=== PATIENT | female | born 1950 | race African-American/Black ===

== ENCOUNTER 2018-02-27 07:42 | Emergency (ER) | payer OTHER ==
[2018-02-27] MEDS ORDERED: FENTANYL CITR 100 MCG/2 ML ONE (09:28)
[2018-02-27] MEDS ORDERED: NA CHLORIDE 0.9% 1,000 ML ONE (09:29)
[2018-02-27] MEDS ORDERED: ONDANSETRON 4 MG/2 ML VIAL ONE (09:29)
--- NOTE | 2018-02-27 10:04 | RAD REPORT ---
EXAM DESCRIPTION: VASExtrem Venous W Compress Bil02/27/2018 9:45 am CLINICAL HISTORY: Bilateral leg pain COMPARISON: 2017 FINDINGS: The common femoral, superficial femoral, popliteal and posterior tibial veins bilaterally are compressible and demonstrate augmentation. Doppler demonstrates good flow. IMPRESSION: No evidence of deep venous thrombosis involving either lower extremity.
--- NOTE | 2018-02-27 10:37 | RAD REPORT ---
EXAM DESCRIPTION: RAD - Lumbar Spine 3 Views - 02/27/2018 10:14 am CLINICAL HISTORY: Back pain FINDINGS: The alignment of the lumbar spine is satisfactory. No fracture or dislocation is seen. Mild spondylosis involves the lumbar spine. The bones are osteoporotic.
--- NOTE | 2018-02-27 10:39 | ER ---
Nurse's Notes [facility] Name: Nhi Santos Age: 67 yrs Sex: Female : 1950 Arrival Date: 02/27/2018 Time: 07:44 Bed 14 Private MD: Augustin Bishop E Diagnosis: Low back pain;Sciatica, left side;Obesity, unspecified;Edema, unspecified;Pain in left leg;Spondylolysis, lumbar region Presentation: 02/27 08:10 Presenting complaint: Patient states: has hx of lupus, has had low back pain X 3 days, iw also has leg swelling. Transition of care: patient was not received from another setting of care. Onset of symptoms was February 24, 2018. 08:10 Method Of Arrival: Ambulatory iw 08:10 Acuity: TESSY 3 iw 08:45 Initial Sepsis Screen: Does the patient meet any 2 criteria? No. Patient's initial ph sepsis screen is negative. Does the patient have a suspected source of infection? No. Patient's initial sepsis screen is negative. Care prior to arrival: None. Historical: - Allergies: 08:44 Sulfa (Sulfonamide Antibiotics); ph - Home Meds: 08:44 alprazolam 2 mg Oral Tb24 1 tab once daily [Active]; amlodipine 10 mg tab 1 tab once ph daily [Active]; carvedilol 6.25 mg Oral tab 1 tab daily [Active]; clonidine HCl 0.3 mg Oral tab 1 tab 2 times per day [Active]; losartan-hydrochlorothiazide 100-12.5 mg Oral tab 1 tab once daily [Active]; [place] 10-325 mg Oral tab 1 tab every 4 hours [Active]; omeprazole 40 mg Oral cpDR 1 cap once daily [Active]; - PMHx: 08:44 Arthritis; Hypertension; Lupus; PUD; ph - PSHx: 08:44 Hysterectomy; Cholecystectomy; ph - Immunization history:: Adult Immunizations not up to date. - Social history:: Smoking status: Patient/guardian denies using tobacco. - Family history:: not pertinent. Screenin:44 Abuse screen: Denies threats or abuse. Denies injuries from another. Nutritional ph screening: No deficits noted. Tuberculosis screening: No symptoms or risk factors identified. Fall Risk None identified. Assessment: 09:55 General: Appears in no apparent distress. uncomfortable, obese, well groomed, Behavior ph is calm, cooperative, appropriate for age, Denies fever. Pain: Complains of pain in low back area Pain radiates to left hip and left leg. Neuro: Level of Consciousness is awake, alert, obeys commands, Oriented to person, place, time, situation. Cardiovascular: Denies chest pain, lightheadedness, shortness of breath, Capillary refill < 3 seconds in bilateral fingers Patient's skin is warm and dry. Edema is 2+ to right ankle, right foot and right toes is 3+ to left ankle, left foot and left toes. Respiratory: Airway is patent Respiratory effort is even, unlabored, Respiratory pattern is regular, symmetrical. GI: No signs and/or symptoms were reported involving the gastrointestinal system. : Reports urinary frequency, Denies burning with urination. Derm: Skin is intact, is healthy with good turgor, Skin is pink, warm \T\ dry. Musculoskeletal: Circulation, motion, and sensation intact. Range of motion: intact in all extremities. 11:00 Reassessment: Patient appears in no apparent distress at this time. Patient and/or ph family updated on plan of care and expected duration. Pain level reassessed. Patient is alert, oriented x 3, equal unlabored respirations, skin warm/dry/pink. Pt esting quietly, d/c pending lab results. 11:39 Reassessment: Patient appears in no apparent distress at this time. Patient and/or iw family updated on plan of care and expected duration. Pain level reassessed. Patient is alert, oriented x 3, equal unlabored respirations, skin warm/dry/pink. Patient states feeling better. Patient states symptoms have improved. Vital Signs: 08:42 BP 172 / 93; Pulse 71; Resp 18; Temp 97.8; Pulse Ox 98% on R/A; ph 10:00 BP 167 / 89; Pulse 67; Resp 18; Pulse Ox 99% on R/A; ph 10:00 BP 172 / 91; Pulse 63; Resp 16; Pulse Ox 96% on R/A; Pain 4/10; ph 11:39 BP 168 / 74; Pulse 61; Resp 16; Pulse Ox 98% on R/A; Pain 2/10; iw ED Course: 07:44 Patient arrived in ED. mr 07:44 Augustin Bishop MD is Private Physician. mr 08:11 Triage completed. iw 08:30 Ze Saini MD is Attending Physician. david 08:41 Luz Maria Hyatt, RN is Primary Nurse. ph 08:42 Arm band placed on. ph 08:45 Patient has correct armband on for positive identification. Bed in low position. Call ph light in reach. Side rails up X 1. Pulse ox on. NIBP on. 09:44 US Extremity Venou Bilateral In Process Unspecified. EDMS 10:03 Patient moved to radiology via wheelchair. mh1 10:05 X-ray completed. Patient tolerated procedure well. mh1 10:06 Lumbar Spine (3 Views) XRAY In Process Unspecified. EDMS 10:13 Patient moved back from radiology. kw1 10:39 Augustin Bishop MD is Referral Physician. david 11:39 No provider procedures requiring assistance completed. IV discontinued, intact, iw bleeding controlled, No redness/swelling at site. Pressure dressing applied. Administered Medications: 10:37 Drug: NS 0.9% 1000 ml Route: IV; Rate: 125 ml/hr; Site: left antecubital; ph 11:40 Follow up: IV Status: Order to discontinue infusion iw 10:37 Drug: fentaNYL (PF) 25 mcg Route: IVP; Site: left antecubital; ph 11:40 Follow up: Response: No adverse reaction; Pain is decreased iw 10:37 Drug: Zofran 4 mg Route: IVP; Site: left antecubital; ph 11:40 Follow up: Response: No adverse reaction iw Outcome: 10:39 Discharge ordered by . david 11:39 Discharged to home ambulatory, with family. iw 11:39 Condition: good 11:39 Discharge instructions given to patient, family, Instructed on discharge instructions, follow up and referral plans. medication usage, Demonstrated understanding of instructions, follow-up care, medications, Prescriptions given X 3. 11:40 Patient left the ED. iw Addendum: 03/03/2018 07:46 Addendum: Culture Results: Positive urine culture. Patient was not prescribed i w antibiotics at discharge. Report given to JAYNA for further evaluation and then to senior sql dba for follow up with patient. Phone call Attempt #1 pt id not answer, left voice mail. Signatures: Dispatcher [employer] EDNM Ze Saini MD MD cha Rivera, Maria Thomas Seeha 1 Comfort Proctor, RN RN Luz Maria Hyatt RN RN Colette Sifuentes [facility]
--- NOTE | 2018-02-27 10:39 | EDPHYS ---
Physician Documentation [facility] Name: Nhi Santos Age: 67 yrs Sex: Female : 1950 Arrival Date: 02/27/2018 Time: 07:44 Bed 14 Private MD: Augustin Bishop E ED Physician Ze Saini HPI: 02/27 09:18 This 67 yrs old Black Female presents to ER via Ambulatory with complaints of Back Pain.david 09:18 The patient presents with pain that is acute. The symptoms are located in the low back. david Onset: The symptoms/episode began/occurred 3 day(s) ago. The pain does not radiate. Associated signs and symptoms: The patient has no apparent associated signs or symptoms. Modifying factors: The patient symptoms are alleviated by remaining still, the patient symptoms are aggravated by movement. Severity of symptoms: At their worst the symptoms were moderate, in the emergency department the symptoms are unchanged. The patient has not experienced similar symptoms in the past. Historical: - Allergies: 08:44 Sulfa (Sulfonamide Antibiotics); ph - Home Meds: 08:44 alprazolam 2 mg Oral Tb24 1 tab once daily [Active]; amlodipine 10 mg tab 1 tab once ph daily [Active]; carvedilol 6.25 mg Oral tab 1 tab daily [Active]; clonidine HCl 0.3 mg Oral tab 1 tab 2 times per day [Active]; losartan-hydrochlorothiazide 100-12.5 mg Oral tab 1 tab once daily [Active]; [place] 10-325 mg Oral tab 1 tab every 4 hours [Active]; omeprazole 40 mg Oral cpDR 1 cap once daily [Active]; - PMHx: 08:44 Arthritis; Hypertension; Lupus; PUD; ph - PSHx: 08:44 Hysterectomy; Cholecystectomy; ph - Immunization history:: Adult Immunizations not up to date. - Social history:: Smoking status: Patient/guardian denies using tobacco. - Family history:: not pertinent. ROS: 09:18 Constitutional: Negative for fever, chills, and weight loss, Eyes: Negative for injury, david pain, redness, and discharge, ENT: Negative for injury, pain, and discharge, Neck: Negative for injury, pain, and swelling, Cardiovascular: Negative for chest pain, palpitations, and edema, Respiratory: Negative for shortness of breath, cough, wheezing, and pleuritic chest pain, Abdomen/GI: Negative for abdominal pain, nausea, vomiting, diarrhea, and constipation, : Negative for injury, bleeding, discharge, and swelling, MS/Extremity: Negative for injury and deformity, Skin: Negative for injury, rash, and discoloration, Neuro: Negative for headache, weakness, numbness, tingling, and seizure, Psych: Negative for depression, anxiety, suicide ideation, homicidal ideation, and hallucinations, Allergy/Immunology: Negative for hives, rash, and allergies, Endocrine: Negative for neck swelling, polydipsia, polyuria, polyphagia, and marked weight changes, Hematologic/Lymphatic: Negative for swollen nodes, abnormal bleeding, and unusual bruising. 09:18 Back: Positive for decreased range of motion, pain at rest, pain with movement. Exam: 09:18 Constitutional: This is a well developed, well nourished patient who is awake, alert, david and in no acute distress. Head/Face: Normocephalic, atraumatic. Eyes: Pupils equal round and reactive to light, extra-ocular motions intact. Lids and lashes normal. Conjunctiva and sclera are non-icteric and not injected. Cornea within normal limits. Periorbital areas with no swelling, redness, or edema. ENT: Nares patent. No nasal discharge, no septal abnormalities noted. Tympanic membranes are normal and external auditory canals are clear. Oropharynx with no redness, swelling, or masses, exudates, or evidence of obstruction, uvula midline. Mucous membranes moist. Neck: Trachea midline, no thyromegaly or masses palpated, and no cervical lymphadenopathy. Supple, full range of motion without nuchal rigidity, or vertebral point tenderness. No Meningismus. Chest/axilla: Normal chest wall appearance and motion. Nontender with no deformity. No lesions are appreciated. Cardiovascular: Regular rate and rhythm with a normal S1 and S2. No gallops, murmurs, or rubs. Normal PMI, no JVD. No pulse deficits. Respiratory: Lungs have equal breath sounds bilaterally, clear to auscultation and percussion. No rales, rhonchi or wheezes noted. No increased work of breathing, no retractions or nasal flaring. Abdomen/GI: Soft, non-tender, with normal bowel sounds. No distension or tympany. No guarding or rebound. No evidence of tenderness throughout. Female : Normal external genitalia. Skin: Warm, dry with normal turgor. Normal color with no rashes, no lesions, and no evidence of cellulitis. Neuro: Awake and alert, GCS 15, oriented to person, place, time, and situation. Cranial nerves II-XII grossly intact. Motor strength 5/5 in all extremities. Sensory grossly intact. Cerebellar exam normal. Normal gait. Psych: Awake, alert, with orientation to person, place and time. Behavior, mood, and affect are within normal limits. 09:18 Back: pain, that is mild, that is moderate, ROM is painful, normal spinal alignment noted, CVA tenderness, is absent, muscle spasm, is appreciated in the left low back, left mid back, right mid back and right low back. Vital Signs: 08:42 BP 172 / 93; Pulse 71; Resp 18; Temp 97.8; Pulse Ox 98% on R/A; ph 10:00 BP 167 / 89; Pulse 67; Resp 18; Pulse Ox 99% on R/A; ph 10:00 BP 172 / 91; Pulse 63; Resp 16; Pulse Ox 96% on R/A; Pain 4/10; ph 11:39 BP 168 / 74; Pulse 61; Resp 16; Pulse Ox 98% on R/A; Pain 2/10; iw MDM: 08:30 Patient medically screened. [facility] 09:18 Data reviewed: vital signs, nurses notes, lab test result(s), radiologic studies, plain david films. 02/27 09:18 Order name: CBC with Diff; Complete Time: 11:14 [facility] 02/27 09:18 Order name: Comprehensive Metabolic Panel [facility] 02/27 09:18 Order name: Lumbar Spine (3 Views) XRAY; Complete Time: 10:38 [facility] 02/27 09:18 Order name: US Extremity Venou Bilateral; Complete Time: 10:38 [facility] 02/27 09:18 Order name: Urine Culture [facility] 02/27 10:02 Order name: Urine Dipstick--Ancillary (enter results) 02/27 09:18 Order name: Urine Dipstick-Ancillary (obtain specimen); Complete Time: 09:26 [facility] Administered Medications: 10:37 Drug: NS 0.9% 1000 ml Route: IV; Rate: 125 ml/hr; Site: left antecubital; ph 11:40 Follow up: IV Status: Order to discontinue infusion iw 10:37 Drug: fentaNYL (PF) 25 mcg Route: IVP; Site: left antecubital; ph 11:40 Follow up: Response: No adverse reaction; Pain is decreased iw 10:37 Drug: Zofran 4 mg Route: IVP; Site: left antecubital; ph 11:40 Follow up: Response: No adverse reaction iw Disposition: 02/27/18 10:39 Discharged to Home. Impression: Low back pain, Sciatica, left side, Obesity, unspecified, Edema, unspecified, Pain in left leg, Spondylolysis, lumbar region. - Condition is Stable. - Discharge Instructions: Back Pain, Adult, Chronic Back Pain, Edema, Musculoskeletal Pain, Obesity, Sciatica, Back Injury Prevention, [id number], Back Pain, Adult, [id number], Edema, Icts-hu-Tulm, Back Exercises, Roxu-ck-Aptu. - Prescriptions for Skelaxin 800 mg Oral Tablet - take 1 tablet by ORAL route every 6 hours As needed; 40 tablet. Tylenol- Codeine #3 300-30 mg Oral Tablet - take 2 tablet by ORAL route every 6 hours As needed; 30 tablet. Medrol (Bryon) 4 mg Oral Tablets, Dose Pack - take 1 tablet by ORAL route as directed - follow package instructions; 1 packet. - Medication Reconciliation Form, Thank You Letter, Antibiotic Education, Prescription Opioid Use form. - Follow up: Augustin Bishop; When: 2 - 3 days; Reason: Recheck today's complaints, Continuance of care, Re-evaluation by your physician. - Problem is new. - Symptoms have improved. Signatures: Dispatcher [employer] Ze Henley MD MD cha Williams, Irene, RN RN iw Luz Maria Hyatt RN RN ph
[2018-02-27 11:00] LABS: Absolute Lymphocytes (CBC) 1.4 K/uL (0.7-4.9); Absolute Monocytes 0.5 K/uL (0.1-1.3); Absolute Neutrophil 5.3 K/uL (1.8-8.0); Basophils % 0.4 % (0-1.3); Eosinophils % 2.2 % (0-4.4); Hematocrit 36.4 % (36.0-45.0); Lymphocytes % 19.3 % (15.3-44.8); MCV 88.9 fL (80-100); MPV 9.6 fL (7.6-11.3); Monocytes % 6.4 % (3.3-12.3)
[2018-02-27 11:11] LABS: Potassium 3.7 mEq/L (3.6-5.0)
[2018-02-27 11:14] LABS: Albumin 3.4 g/dL (3.2-5.5); Bilirubin Total 0.6 mg/dL (0.3-1.2); Protein, Total 7.9 g/dL (6.0-8.3)
[2018-02-27 11:32] LABS: Urine Blood NEGATIVE (NEG); Urine Glucose NEGATIVE (NEG); Urine Protein NEGATIVE (NEG)
[2018-02-27 12:13] VITALS: TEMP 97.8
[2018-02-27 12:16] VITALS: BP 168/74; O2SAT 98
== END 2018-02-27 11:40 | disposition home or self-care (01) ==
LOC: ER 07:42
DX: M54.32 Sciatica, left side (principal); M47.896 Other spondylosis, lumbar region; R60.9 Edema, unspecified; M79.605 Pain in left leg; E66.9 Obesity, unspecified; I10 Essential (primary) hypertension; Z88.2 Allergy status to sulfonamides
CPT/HCPCS: 36415; 72100; 80053; 81003; 85025; 87077; 87086; 87088; 87186; 93970; 96361; 96374; 96375; 99284; J2405; J3010; J7030

== ENCOUNTER 2019-03-05 08:08 | Emergency (ER) | payer OTHER ==
--- NOTE | 2019-03-05 09:27 | RAD REPORT ---
EXAM DESCRIPTION: RAD - Chest Pa And Lat (2 Views) - 03/05/2019 9:16 am CLINICAL HISTORY: Cough;Congestion Chest pain. COMPARISON: Chest Single View dated 01/03/2018; CHEST SINGLE VIEW dated 09/19/2012; CHEST SINGLE VIEW dated 09/18/2012; CHEST SINGLE VIEW dated 02/06/2012 FINDINGS: The lungs are clear. The heart is normal in size. No displaced fractures. IMPRESSION: No acute or concerning finding suspected.
--- NOTE | 2019-03-05 10:42 | EDPHYS ---
Physician Documentation [facility] Name: Nhi Santos Age: 68 yrs Sex: Female : 1950 Arrival Date: 03/05/2019 Time: 08:09 Bed 23 Private MD: Augustin Bishop E ED Physician Maurice Zhao HPI: 03/05 10:35 This 68 yrs old Black Female presents to ER via Ambulatory with complaints of Chest kb Congestion, Cough, Ear Pain, Sore Throat. 10:35 The patient or guardian reports cough, that is intermittent, described as moderate, kb with no sputum. Associated signs and symptoms: Pertinent positives: rhinorrhea, Pertinent negatives: chest pain, diarrhea, ear ache, fever, nausea, sore throat, vomiting. The patient has not experienced similar symptoms in the past. The patient has not recently seen a physician. 10:37 Onset: The symptoms/episode began/occurred 4 day(s) ago. Severity of symptoms: At their kb worst the symptoms were mild, moderate, in the emergency department the symptoms are unchanged. Severity of symptoms: At their worst the symptoms were. Modifying factors: The symptoms are alleviated by nothing, the symptoms are aggravated by nothing. Pt reports cough and congestion for 3-4 days. Denies fever.. Historical: - Allergies: 08:18 Sulfa (Sulfonamide Antibiotics); ss - PMHx: 08:18 PUD; Lupus; Hypertension; Arthritis; neuropathy; ss - PSHx: 08:18 Hysterectomy; Cholecystectomy; ss - Immunization history:: Adult Immunizations up to date. - Social history:: Smoking status: Patient/guardian denies using tobacco. - Ebola Screening: : Patient denies exposure to infectious person Patient denies travel to an Ebola-affected area in the 21 days before illness onset. ROS: 10:33 Constitutional: Negative for fever, chills, and weight loss, Cardiovascular: Negative kb for chest pain, palpitations, and edema, Abdomen/GI: Negative for abdominal pain, nausea, vomiting, diarrhea, and constipation, Back: Negative for injury and pain, : Negative for injury, bleeding, discharge, and swelling, MS/Extremity: Negative for injury and deformity, Skin: Negative for injury, rash, and discoloration, Neuro: Negative for headache, weakness, numbness, tingling, and seizure. 10:33 ENT: Positive for sinus congestion. 10:33 Respiratory: Positive for cough, Negative for dyspnea on exertion, hemoptysis, orthopnea, pleurisy, shortness of breath, sputum production, wheezing. Exam: 10:33 Constitutional: This is a well developed, well nourished patient who is awake, alert, kb and in no acute distress. ENT: Nares patent. No nasal discharge, no septal abnormalities noted. Tympanic membranes are normal and external auditory canals are clear. Oropharynx with no redness, swelling, or masses, exudates, or evidence of obstruction, uvula midline. Mucous membranes moist. Neck: Trachea midline, no thyromegaly or masses palpated, and no cervical lymphadenopathy. Supple, full range of motion without nuchal rigidity, or vertebral point tenderness. No Meningismus. Chest/axilla: Normal chest wall appearance and motion. Nontender with no deformity. No lesions are appreciated. Cardiovascular: Regular rate and rhythm with a normal S1 and S2. No gallops, murmurs, or rubs. Normal PMI, no JVD. No pulse deficits. Respiratory: Lungs have equal breath sounds bilaterally, clear to auscultation and percussion. No rales, rhonchi or wheezes noted. No increased work of breathing, no retractions or nasal flaring. Abdomen/GI: Soft, non-tender, with normal bowel sounds. No distension or tympany. No guarding or rebound. No evidence of tenderness throughout. Skin: Warm, dry with normal turgor. Normal color with no rashes, no lesions, and no evidence of cellulitis. MS/ Extremity: Pulses equal, no cyanosis. Neurovascular intact. Full, normal range of motion. Neuro: Awake and alert, GCS 15, oriented to person, place, time, and situation. Cranial nerves II-XII grossly intact. Motor strength 5/5 in all extremities. Sensory grossly intact. Cerebellar exam normal. Normal gait. 10:33 Head/face: Sinus tenderness, that is mild, is located over the right maxillary sinus and left maxillary sinus. Vital Signs: 08:18 BP 166 / 103; Pulse 79; Resp 16; Temp 98.0(TE); Pulse Ox 98% on R/A; Weight 116.12 kg; ss Height 5 ft. 4 in. (162.56 cm); Pain 6/10; 08:18 BP 143 / 103; Pulse 79; ss 08:18 Body Mass Index 43.94 (116.12 kg, 162.56 cm) ss MDM: 09:09 Patient medically screened. kb 10:32 Data reviewed: vital signs, nurses notes. Data interpreted: Pulse oximetry: on room air kb is 98 %. Interpretation: normal. Counseling: I had a detailed discussion with the patient and/or guardian regarding: the historical points, exam findings, and any diagnostic results supporting the discharge/admit diagnosis, lab results, radiology results, the need for outpatient follow up, a family practitioner, to return to the emergency department if symptoms worsen or persist or if there are any questions or concerns that arise at home. 03/05 08:33 Order name: Flu; Complete Time: 09:59 kb 03/05 08:33 Order name: Strep; Complete Time: 09:41 kb 03/05 08:33 Order name: Chest Pa And Lat (2 Views) XRAY; Complete Time: 09:28 kb 03/05 09:35 Order name: Throat Culture EDWI Administered Medications: No medications were administered Disposition: 03/05/19 10:41 Discharged to Home. Impression: Acute sinusitis. - Condition is Stable. - Discharge Instructions: Sinusitis, Adult, Knzk-bz-Fmhy. - Prescriptions for Tessalon Perles 100 mg Oral Capsule - take 1 capsule by ORAL route every 8 hours As needed; 15 capsule. - Medication Reconciliation Form, Thank You Letter, Antibiotic Education, Prescription Opioid Use form. - Follow up: Emergency Department; When: As needed; Reason: Worsening of condition. Follow up: Private Physician; When: 2 - 3 days; Reason: Recheck today's complaints, Continuance of care, Re-evaluation by your physician. Signatures: Dispatcher [employer] [facility] Deyanira Rowan, SALES ESTIMATOR-C SALES ESTIMATOR-Kathie Pearson RN RN ss Corrections: (The following items were deleted from the chart) 08:39 08:20 Chest Single View+RAD.[email or web address].BRZ ordered. [facility] 11:11 10:41 03/05/2019 10:41 Discharged to Home. Impression: Acute sinusitis. Condition is ss Stable. Forms are Medication Reconciliation Form, Thank You Letter, Antibiotic Education, Prescription Opioid Use. Follow up: Emergency Department; When: As needed; Reason: Worsening of condition. Follow up: Private Physician; When: 2 - 3 days; Reason: Recheck today's complaints, Continuance of care, Re-evaluation by your physician. kb
--- NOTE | 2019-03-05 10:42 | ER ---
Nurse's Notes [facility] Name: Nhi Santos Age: 68 yrs Sex: Female : 1950 Arrival Date: 03/05/2019 Time: 08:09 Bed 23 Private MD: Augustin Bishop E Diagnosis: Acute sinusitis Presentation: 03/05 08:16 Presenting complaint: Patient states: sneezing, runny nose, painful cough and chest ss congestion x 3-4 days. Denies fever. Transition of care: patient was not received from another setting of care. Onset of symptoms was March 02, 2019. Risk Assessment: Do you want to hurt yourself or someone else? Patient reports no desire to harm self or others. Initial Sepsis Screen: Does the patient meet any 2 criteria? No. Patient's initial sepsis screen is negative. Does the patient have a suspected source of infection? No. Patient's initial sepsis screen is negative. Care prior to arrival: None. 08:16 Method Of Arrival: Ambulatory ss 08:16 Acuity: TESSY 3 ss Historical: - Allergies: 08:18 Sulfa (Sulfonamide Antibiotics); ss - PMHx: 08:18 PUD; Lupus; Hypertension; Arthritis; neuropathy; ss - PSHx: 08:18 Hysterectomy; Cholecystectomy; ss - Immunization history:: Adult Immunizations up to date. - Social history:: Smoking status: Patient/guardian denies using tobacco. - Ebola Screening: : Patient denies exposure to infectious person Patient denies travel to an Ebola-affected area in the 21 days before illness onset. Screenin:15 Abuse screen: Denies threats or abuse. Denies injuries from another. Nutritional ss screening: No deficits noted. Tuberculosis screening: Never had TB. Fall Risk None identified. Assessment: 09:15 General: Appears uncomfortable, Behavior is calm, cooperative, Denies fever, feeling ss ill, fatigue, chills. Pain: Complains of pain in sore throat Pain currently is 6 out of 10 on a pain scale. Quality of pain is described as aching, Is. Neuro: Level of Consciousness is awake, alert, obeys commands, Oriented to person, place, time, situation. Cardiovascular: Capillary refill < 3 seconds is brisk in bilateral fingers Patient's skin is warm and dry. Respiratory: Airway is patent Respiratory effort is even, unlabored, Respiratory pattern is regular, symmetrical. Respiratory: Reports cough that is productive, hacking, persistent since x 3-4 days chest congestion Breath sounds are clear bilaterally. GI: Patient currently denies diarrhea, nausea, vomiting. :. EENT: Nares are clear Oral mucosa is moist. Throat is clear. Derm: Skin is intact, is healthy with good turgor, Skin is dry, Skin is pink, warm \T\ dry. normal. Musculoskeletal: Circulation, motion, and sensation intact. Range of motion: intact in all extremities, Swelling absent. Vital Signs: 08:18 BP 166 / 103; Pulse 79; Resp 16; Temp 98.0(TE); Pulse Ox 98% on R/A; Weight 116.12 kg; ss Height 5 ft. 4 in. (162.56 cm); Pain 6/10; 08:18 BP 143 / 103; Pulse 79; ss 08:18 Body Mass Index 43.94 (116.12 kg, 162.56 cm) ss ED Course: 08:09 Patient arrived in ED. as 08:10 Augustin Bishop MD is Private Physician. as 08:17 Triage completed. ss 08:33 Deyanira Rowan F[facility]-C [facility]. kb 08:33 Maurice Zhao MD is Attending Physician. kb 09:14 Chest Pa And Lat (2 Views) XRAY In Process Unspecified. EDMS 09:15 Patient has correct armband on for positive identification. Bed in low position. Call ss light in reach. Side rails up X 1. 09:41 Kathie Charlton RN is Primary Nurse. ss 11:11 No provider procedures requiring assistance completed. Patient did not have IV access ss during this emergency room visit. Administered Medications: No medications were administered Outcome: 10:41 Discharge ordered by . kb 11:11 Discharged to home ambulatory. ss 11:11 Condition: good 11:11 Discharge instructions given to patient, Instructed on discharge instructions, follow up and referral plans. medication usage, Demonstrated understanding of instructions, follow-up care, medications, Prescriptions given X 1. 11:11 Patient left the ED. ss Signatures: Dispatcher [employer] EDMS Deyanira Rowan FNP-C FNP-Rafia Donahue as Kathie Charlton RN RN ss
[2019-03-05 11:22] VITALS: BP 143/103; TEMP 98; O2SAT 98
== END 2019-03-05 11:11 | disposition home or self-care (01) ==
LOC: ER 08:08
DX: J01.90 Acute sinusitis, unspecified (principal); I10 Essential (primary) hypertension; K27.9 Peptic ulcer, site unspecified, unspecified as acute or chronic, without hemorrhage or perforation; Z88.2 Allergy status to sulfonamides
CPT/HCPCS: 71046; 87070; 87081; 87804

== ENCOUNTER 2019-08-13 06:59 | Emergency (ER) | payer OTHER ==
--- NOTE | 2019-08-13 08:45 | ER ---
Nurse's Notes [facility] Name: Nhi Santos Age: 68 yrs Sex: Female : 1950 Arrival Date: 08/13/2019 Time: 07:02 Bed 20 Private MD: Diagnosis: Low back pain Presentation: 08/13 07:15 Presenting complaint: Patient states: yesterday morning i couldn't put weight on my tw2 LEFT side, i felt a tearing/pulling pain in my LEFT groin area, felt a pop. Transition of care: patient was not received from another setting of care. Onset of symptoms was August 13, 2019. Risk Assessment: Do you want to hurt yourself or someone else? Patient reports no desire to harm self or others. Initial Sepsis Screen: Does the patient meet any 2 criteria? No. Patient's initial sepsis screen is negative. Does the patient have a suspected source of infection? No. Patient's initial sepsis screen is negative. Care prior to arrival: None. 07:15 Method Of Arrival: Wheelchair tw2 07:15 Acuity: TESSY 4 tw2 Triage Assessment: 07:19 General: Appears in no apparent distress. obese, well groomed, Behavior is calm, tw2 cooperative, appropriate for age. Pain: Complains of pain in pelvis and left hip. Historical: - Allergies: 07:19 Sulfa (Sulfonamide Antibiotics); tw2 - Home Meds: 07:19 losartan-hydrochlorothiazide 100-12.5 mg Oral tab 1 tab once daily [Active]; omeprazole tw2 40 mg Oral cpDR 1 cap once daily [Active]; [place] 10-325 mg Oral tab 1 tab every 4 hours [Active]; clonidine HCl 0.3 mg Oral tab 1 tab 2 times per day [Active]; carvedilol 6.25 mg Oral tab 1 tab daily [Active]; amlodipine 10 mg tab 1 tab once daily [Active]; alprazolam 2 mg Oral Tb24 1 tab once daily [Active]; - PMHx: 07:19 Arthritis; Hypertension; Lupus; neuropathy; PUD; tw2 - PSHx: 07:19 Cholecystectomy; Hysterectomy; tw2 - Immunization history:: Adult Immunizations. - Social history:: Smoking status: . - Ebola Screening: : Patient denies travel to an Ebola-affected area in the 21 days before illness onset. Screenin:21 Abuse screen: Denies threats or abuse. Nutritional screening: No deficits noted. tw2 Tuberculosis screening: No symptoms or risk factors identified. Fall Risk None identified. Assessment: 07:21 General: Appears in no apparent distress. obese, well groomed, Behavior is calm, tw2 cooperative, appropriate for age. Pain: Complains of pain in pelvis and left hip. Neuro: Level of Consciousness is awake, alert, obeys commands, Oriented to person, place, time, situation. Cardiovascular: Patient's skin is warm and dry. Respiratory: Airway is patent Respiratory effort is even, unlabored, Respiratory pattern is regular, symmetrical. GI: No signs and/or symptoms were reported involving the gastrointestinal system. : No signs and/or symptoms were reported regarding the genitourinary system. EENT: No signs and/or symptoms were reported regarding the EENT system. Derm: No signs and/or symptoms reported regarding the dermatologic system. Musculoskeletal: Reports pain in pelvis and left hip. 08:02 Reassessment: Patient appears in no apparent distress at this time. No changes from tw2 previously documented assessment. Patient and/or family updated on plan of care and expected duration. Pain level reassessed. Patient is alert, oriented x 3, equal unlabored respirations, skin warm/dry/pink. 08:37 Reassessment: provider at bedside at this time. tw2 08:50 Reassessment: Patient appears in no apparent distress at this time. No changes from tw2 previously documented assessment. Patient and/or family updated on plan of care and expected duration. Pain level reassessed. Patient is alert, oriented x 3, equal unlabored respirations, skin warm/dry/pink. Vital Signs: 07:16 BP 169 / 86; Pulse 63; Resp 17; Temp 97.6(O); Pulse Ox 100% on R/A; Height 5 ft. 4 in. tw2 (162.56 cm) (R); Pain 7/10; 08:02 BP 146 / 95; Pulse 66; Resp 17; Pulse Ox 100% on R/A; tw2 ED Course: 07:02 Patient arrived in ED. ds1 07:03 Rogerio Penaloza PA is PHCP. jr8 07:03 Ze Saini MD is Attending Physician. jr8 07:05 Placed in gown. Bed in low position. Call light in reach. Pulse ox on. NIBP on. Warm tw2 blanket given. 07:15 Latha Frances, RN is Primary Nurse. tw2 07:16 Triage completed. tw2 07:16 Arm band placed on. tw2 07:54 Hip Left 2 View XRAY In Process Unspecified. EDMS 08:50 No provider procedures requiring assistance completed. Patient did not have IV access tw2 during this emergency room visit. Administered Medications: No medications were administered Outcome: 08:45 Discharge ordered by MD. jr8 08:50 Discharged to home via wheelchair, with significant other. tw2 08:50 Condition: stable 08:50 Discharge instructions given to patient, significant other, Instructed on discharge instructions, follow up and referral plans. medication usage, Demonstrated understanding of instructions, follow-up care, medications, Prescriptions given X 2. 08:51 Patient left the ED. tw2 Signatures: Dispatcher [employer] [facility] Crys Mcmillan ds1 Rogerio Penaloza PA PA jr8 Latha Frances, RN RN tw2
--- NOTE | 2019-08-13 08:45 | EDPHYS ---
Physician Documentation [facility] Name: Nhi Santos Age: 68 yrs Sex: Female : 1950 Arrival Date: 08/13/2019 Time: 07:02 Bed 20 Private MD: ED Physician Ze Saini HPI: 08/13 07:16 This 68 yrs old Black Female presents to ER via Unassigned with complaints of Pelvic jr8 Pain, Diff Walking. 07:16 The patient or guardian reports decreased range of motion, pain. that occurred at home, jr8 sustained from unknown reason, There is no obvious deformity, The patient is able to self ambulate. The patient is able to bear partial body weight. There is no radiation of the patient's discomfort. The complaints affect the left hip. Onset: The symptoms/episode began/occurred yesterday. Severity of symptoms: At their worst the symptoms were moderate, in the emergency department the symptoms are unchanged. Pt reports getting out of bed yesterday morning and having pain in the left hip with difficulty walking. Historical: - Allergies: 07:19 Sulfa (Sulfonamide Antibiotics); tw2 - Home Meds: 07:19 losartan-hydrochlorothiazide 100-12.5 mg Oral tab 1 tab once daily [Active]; omeprazole tw2 40 mg Oral cpDR 1 cap once daily [Active]; [place] 10-325 mg Oral tab 1 tab every 4 hours [Active]; clonidine HCl 0.3 mg Oral tab 1 tab 2 times per day [Active]; carvedilol 6.25 mg Oral tab 1 tab daily [Active]; amlodipine 10 mg tab 1 tab once daily [Active]; alprazolam 2 mg Oral Tb24 1 tab once daily [Active]; - PMHx: 07:19 Arthritis; Hypertension; Lupus; neuropathy; PUD; tw2 - PSHx: 07:19 Cholecystectomy; Hysterectomy; tw2 - Immunization history:: Adult Immunizations. - Social history:: Smoking status: . - Ebola Screening: : Patient denies travel to an Ebola-affected area in the 21 days before illness onset. ROS: 07:16 Constitutional: Negative for fever, chills, and weight loss, Eyes: Negative for injury, jr8 pain, redness, and discharge, ENT: Negative for injury, pain, and discharge, Neck: Negative for injury, pain, and swelling, Cardiovascular: Negative for chest pain, palpitations, and edema, Respiratory: Negative for shortness of breath, cough, wheezing, and pleuritic chest pain, Abdomen/GI: Negative for abdominal pain, nausea, vomiting, diarrhea, and constipation, Back: Negative for injury and pain, Neuro: Negative for headache, weakness, numbness, tingling, and seizure. 07:16 MS/extremity: Positive for decreased range of motion, pain, of the left hip. Exam: 07:18 Constitutional: This is a well developed, well nourished patient who is awake, alert, jr8 and in no acute distress. Head/Face: Normocephalic, atraumatic. Eyes: Pupils equal round and reactive to light, extra-ocular motions intact. Lids and lashes normal. Conjunctiva and sclera are non-icteric and not injected. Cornea within normal limits. Periorbital areas with no swelling, redness, or edema. ENT: Nares patent. No nasal discharge, no septal abnormalities noted. Tympanic membranes are normal and external auditory canals are clear. Oropharynx with no redness, swelling, or masses, exudates, or evidence of obstruction, uvula midline. Mucous membranes moist. Neck: Trachea midline, no thyromegaly or masses palpated, and no cervical lymphadenopathy. Supple, full range of motion without nuchal rigidity, or vertebral point tenderness. No Meningismus. Chest/axilla: Normal chest wall appearance and motion. Nontender with no deformity. No lesions are appreciated. Cardiovascular: Regular rate and rhythm with a normal S1 and S2. No gallops, murmurs, or rubs. Normal PMI, no JVD. No pulse deficits. Respiratory: Lungs have equal breath sounds bilaterally, clear to auscultation and percussion. No rales, rhonchi or wheezes noted. No increased work of breathing, no retractions or nasal flaring. Abdomen/GI: Soft, non-tender, with normal bowel sounds. No distension or tympany. No guarding or rebound. No evidence of tenderness throughout. 07:18 Musculoskeletal/extremity: ROM: full active range of motion, limited passive range of motion, Pulses: noted to be 3+ in the right dorsalis pedis artery and left dorsalis pedis artery. Vital Signs: 07:16 BP 169 / 86; Pulse 63; Resp 17; Temp 97.6(O); Pulse Ox 100% on R/A; Height 5 ft. 4 in. tw2 (162.56 cm) (R); Pain 7/10; 08:02 BP 146 / 95; Pulse 66; Resp 17; Pulse Ox 100% on R/A; tw2 MDM: 07:03 Patient medically screened. jr8 08:43 Data reviewed: vital signs, nurses notes, radiologic studies, and as a result, I will jr8 discharge patient. Data interpreted: Pulse oximetry: on room air is 100 %. Interpretation: normal. Counseling: I had a detailed discussion with the patient and/or guardian regarding: the historical points, exam findings, and any diagnostic results supporting the discharge/admit diagnosis, radiology results, the need for outpatient follow up, a family practitioner. ED course: Upon repeat exam pt more comfortable, straight leg raise test positive. Pt ambulatory with limp. States she has apt with PCP next week. 08/13 07:15 Order name: Hip Left 2 View XRAY jr8 Administered Medications: No medications were administered Disposition: 10:21 Co-signature as Attending Physician, Ze Saini MD I agree with the assessment and david plan of care. Disposition: 08/13/19 08:45 Discharged to Home. Impression: Low back pain. - Condition is Stable. - Discharge Instructions: Back Pain, Adult, Sciatica. - Prescriptions for Robaxin 500 mg Oral Tablet - take 2 tablets by ORAL route every 6 hours As needed; 20 tablet. Medrol ([place]) 4 mg Oral Tablets, Dose Pack - take 1 tablet by ORAL route as directed - follow package instructions; 1 packet. - Medication Reconciliation Form, Thank You Letter form. - Follow up: Private Physician; When: 5 - 6 days; Reason: Recheck today's complaints, Continuance of care, Re-evaluation by your physician. - Problem is new. - Symptoms have improved. Signatures: Dispatcher [employer] Ze Henley MD MD cha Roszak, Josh, PA PA jr8 Latha Frances RN RN tw2 Corrections: (The following items were deleted from the chart) 08:51 08:45 08/13/2019 08:45 Discharged to Home. Impression: Low back pain. Condition is tw2 Stable. Forms are Medication Reconciliation Form, Thank You Letter, Antibiotic Education, Prescription Opioid Use. Follow up: Private Physician; When: 5 - 6 days; Reason: Recheck today's complaints, Continuance of care, Re-evaluation by your physician. Problem is new. Symptoms have improved. jr8
[2019-08-13 08:56] VITALS: TEMP 97.6; O2SAT 100
[2019-08-13 08:57] VITALS: BP 146/95
--- NOTE | 2019-08-13 09:31 | RAD REPORT ---
EXAM DESCRIPTION: RAD - Hip Left 2 View - 08/13/2019 7:56 am CLINICAL HISTORY: Left hip pain COMPARISON: None. FINDINGS: AP and frogleg views of the left hip were obtained. There is no fracture or dislocation. N o acute or destructive bony process seen. No significant degenerative change at the hip joint. No soft tissue abnormality. IMPRESSION: Negative left hip examination for acute or significant findings.
== END 2019-08-13 08:51 | disposition home or self-care (01) ==
LOC: ER 06:59
DX: M54.5 Low back pain (principal); I10 Essential (primary) hypertension; Z88.2 Allergy status to sulfonamides
CPT/HCPCS: 99283

== ENCOUNTER 2019-11-11 09:00 | Emergency (ER) | payer OTHER ==
--- NOTE | 2019-11-11 09:58 | ER ---
Nurse's Notes [facility] Name: Nhi Santos Age: 69 yrs Sex: Female : 1950 Arrival Date: 11/11/2019 Time: 09:02 Bed 19 Private MD: Augustin Bishop E Diagnosis: Acute upper respiratory infection, unspecified;Fever, unspecified;Influenza due to other identified influenza virus-B Presentation: 11/11 09:24 Presenting complaint: Patient states: Body aches and cough that began 5 days ago, fever ss since yesterday, TMAX 101. Transition of care: patient was not received from another setting of care. Onset of symptoms was November 06, 2019. Risk Assessment: Do you want to hurt yourself or someone else?. Initial Sepsis Screen: Does the patient meet any 2 criteria? No. Patient's initial sepsis screen is negative. Does the patient have a suspected source of infection? No. Patient's initial sepsis screen is negative. Care prior to arrival: None. 09:24 Method Of Arrival: Ambulatory ss 09:24 Acuity: TESSY 3 ss Triage Assessment: 09:27 General: Appears in no apparent distress. comfortable, Behavior is calm, cooperative, bp appropriate for age. Pain: Complains of pain in GENERALIZED. EENT: Reports nasal congestion. Neuro: No deficits noted. Cardiovascular: No deficits noted. Respiratory: Reports cough that is. GI: No signs and/or symptoms were reported involving the gastrointestinal system. : No signs and/or symptoms were reported regarding the genitourinary system. Derm: No deficits noted. Musculoskeletal: No deficits noted. Historical: - Allergies: 09:28 Sulfa (Sulfonamide Antibiotics); ss - Home Meds: 09:28 alprazolam 2 mg Oral Tb24 1 tab once daily [Active]; amlodipine 10 mg tab 1 tab once ss daily [Active]; carvedilol 6.25 mg Oral tab 1 tab daily [Active]; clonidine HCl 0.3 mg Oral tab 1 tab 2 times per day [Active]; losartan-hydrochlorothiazide 100-12.5 mg Oral tab 1 tab once daily [Active]; [place] 10-325 mg Oral tab 1 tab every 4 hours [Active]; omeprazole 40 mg Oral cpDR 1 cap once daily [Active]; - PMHx: 09:28 Arthritis; Hypertension; Lupus; neuropathy; PUD; ss - PSHx: 09:28 Cholecystectomy; Hysterectomy; ss - Immunization history:: Adult Immunizations up to date. - Social history:: Smoking status: Patient/guardian denies using tobacco. - Ebola Screening: : Patient denies exposure to infectious person Patient denies travel to an Ebola-affected area in the 21 days before illness onset. - Family history:: not pertinent. Screenin:25 Abuse screen: Denies threats or abuse. Denies injuries from another. Nutritional bp screening: No deficits noted. Tuberculosis screening: No symptoms or risk factors identified. Fall Risk None identified. Assessment: 09:27 General: SEE TRIAGE NOTE. bp 10:52 Reassessment: PT D/C HOME AMBULATORY WITH FAMILY, DX WITH URI, FLU B. bp Vital Signs: 09:23 BP 137 / 103; Pulse 79; Resp 18; Temp 99.2(O); Pulse Ox 95% on R/A; Weight 117.93 kg; ss Height 5 ft. 4 in. (162.56 cm); Pain 6/10; 10:53 BP 154 / 99; Pulse 68; Resp 16; Temp 98; Pulse Ox 99% ; bp 09:23 Body Mass Index 44.63 (117.93 kg, 162.56 cm) ss ED Course: 09:02 Patient arrived in ED. mr 09:02 Augustin Bishop MD is Private Physician. mr 09:15 Jimbo Stewart, RN is Primary Nurse. bp 09:16 Ze Saini MD is Attending Physician. david 09:23 Arm band placed on left wrist. ss 09:26 Triage completed. ss 09:29 Patient has correct armband on for positive identification. Bed in low position. Call bp light in reach. Side rails up X2. 09:37 Flu Sent. kj1 09:38 Chest Pa And Lat (2 Views) XRAY In Process Unspecified. EDMS 09:56 Augustin Bishop MD is Referral Physician. david 10:53 No provider procedures requiring assistance completed. Patient did not have IV access bp during this emergency room visit. Administered Medications: 10:20 Drug: Zithromax 500 mg Route: PO; bp 10:55 Follow up: Response: No adverse reaction bp 10:20 Drug: Tamiflu 75 mg Route: PO; bp 10:55 Follow up: Response: No adverse reaction bp 10:20 Drug: Xopenex 1.25 mg Route: Inhalation; bp 10:20 Drug: AtroVENT Aerosol 0.5 mg Route: Inhalation; bp 10:20 Drug: Motrin 600 mg Route: PO; bp 10:54 Follow up: Response: No adverse reaction bp 10:20 Drug: Rocephin (cefTRIAXone) 1 grams Route: IM; Site: right gluteus; bp 10:54 Follow up: Response: No adverse reaction bp Outcome: 09:57 Discharge ordered by . david 10:53 Discharged to home ambulatory, with family. bp 10:53 Condition: stable 10:53 Discharge instructions given to patient, Instructed on discharge instructions, follow up and referral plans. medication usage, Demonstrated understanding of instructions, follow-up care, medications, Prescriptions given X 4. 10:55 Patient left the ED. bp Signatures: Dispatcher [employer] EDMS Ze Saini MD MD cha Rivera, Mary mr Kathie Charlton RN RN ss Peltier, Brian, RN RN bp Jackson, Kandis kj1
--- NOTE | 2019-11-11 09:59 | EDPHYS ---
Physician Documentation [facility] Name: Nhi Santos Age: 69 yrs Sex: Female : 1950 Arrival Date: 11/11/2019 Time: 09:02 Bed 19 Private MD: Augustin Bishop E ED Physician Ze Saini HPI: 11/11 09:54 This 69 yrs old Black Female presents to ER via Ambulatory with complaints of Flu david Symptoms. 09:54 The patient has shortness of breath with light activity. Onset: The symptoms/episode david began/occurred 2 day(s) ago. Duration: The symptoms are continuous, and are steadily getting worse. The patient's shortness of breath has no apparent modifying factors. The patient or guardian reports cough. Associated signs and symptoms: Pertinent positives: productive cough, fever. Severity of symptoms: At their worst the symptoms were mild moderate in the emergency department the symptoms are unchanged. Historical: - Allergies: 09:28 Sulfa (Sulfonamide Antibiotics); ss - Home Meds: :28 alprazolam 2 mg Oral Tb24 1 tab once daily [Active]; amlodipine 10 mg tab 1 tab once ss daily [Active]; carvedilol 6.25 mg Oral tab 1 tab daily [Active]; clonidine HCl 0.3 mg Oral tab 1 tab 2 times per day [Active]; losartan-hydrochlorothiazide 100-12.5 mg Oral tab 1 tab once daily [Active]; [place] 10-325 mg Oral tab 1 tab every 4 hours [Active]; omeprazole 40 mg Oral cpDR 1 cap once daily [Active]; - PMHx: 09:28 Arthritis; Hypertension; Lupus; neuropathy; PUD; ss - PSHx: 09:28 Cholecystectomy; Hysterectomy; ss - Immunization history:: Adult Immunizations up to date. - Social history:: Smoking status: Patient/guardian denies using tobacco. - Ebola Screening: : Patient denies exposure to infectious person Patient denies travel to an Ebola-affected area in the 21 days before illness onset. - Family history:: not pertinent. ROS: 09:54 Constitutional: Negative for fever, chills, and weight loss, Eyes: Negative for injury, david pain, redness, and discharge, ENT: Negative for injury, pain, and discharge, Neck: Negative for injury, pain, and swelling, Cardiovascular: Negative for chest pain, palpitations, and edema, Abdomen/GI: Negative for abdominal pain, nausea, vomiting, diarrhea, and constipation, Back: Negative for injury and pain, : Negative for injury, bleeding, discharge, and swelling, MS/Extremity: Negative for injury and deformity, Skin: Negative for injury, rash, and discoloration, Neuro: Negative for headache, weakness, numbness, tingling, and seizure, Psych: Negative for depression, anxiety, suicide ideation, homicidal ideation, and hallucinations, Allergy/Immunology: Negative for hives, rash, and allergies, Endocrine: Negative for neck swelling, polydipsia, polyuria, polyphagia, and marked weight changes, Hematologic/Lymphatic: Negative for swollen nodes, abnormal bleeding, and unusual bruising. 09:54 Respiratory: Positive for cough, shortness of breath, on exertion. Exam: 09:54 Constitutional: This is a well developed, well nourished patient who is awake, alert, david and in no acute distress. Head/Face: Normocephalic, atraumatic. Eyes: Pupils equal round and reactive to light, extra-ocular motions intact. Lids and lashes normal. Conjunctiva and sclera are non-icteric and not injected. Cornea within normal limits. Periorbital areas with no swelling, redness, or edema. ENT: Nares patent. No nasal discharge, no septal abnormalities noted. Tympanic membranes are normal and external auditory canals are clear. Oropharynx with no redness, swelling, or masses, exudates, or evidence of obstruction, uvula midline. Mucous membranes moist. Neck: Trachea midline, no thyromegaly or masses palpated, and no cervical lymphadenopathy. Supple, full range of motion without nuchal rigidity, or vertebral point tenderness. No Meningismus. Chest/axilla: Normal chest wall appearance and motion. Nontender with no deformity. No lesions are appreciated. Cardiovascular: Regular rate and rhythm with a normal S1 and S2. No gallops, murmurs, or rubs. Normal PMI, no JVD. No pulse deficits. Abdomen/GI: Soft, non-tender, with normal bowel sounds. No distension or tympany. No guarding or rebound. No evidence of tenderness throughout. Back: No spinal tenderness. No costovertebral tenderness. Full range of motion. Skin: Warm, dry with normal turgor. Normal color with no rashes, no lesions, and no evidence of cellulitis. MS/ Extremity: Pulses equal, no cyanosis. Neurovascular intact. Full, normal range of motion. Neuro: Awake and alert, GCS 15, oriented to person, place, time, and situation. Cranial nerves II-XII grossly intact. Motor strength 5/5 in all extremities. Sensory grossly intact. Cerebellar exam normal. Normal gait. Psych: Awake, alert, with orientation to person, place and time. Behavior, mood, and affect are within normal limits. 09:54 Respiratory: the patient does not display signs of respiratory distress, Respirations: normal, no acute changes, labored breathing, is not present, Breath sounds: decreased breath sounds, that are mild, rhonchi, that are mild, stridor, is not appreciated, + upper airway congestion. Vital Signs: 09:23 BP 137 / 103; Pulse 79; Resp 18; Temp 99.2(O); Pulse Ox 95% on R/A; Weight 117.93 kg; ss Height 5 ft. 4 in. (162.56 cm); Pain 6/10; 10:53 BP 154 / 99; Pulse 68; Resp 16; Temp 98; Pulse Ox 99% ; bp 09:23 Body Mass Index 44.63 (117.93 kg, 162.56 cm) ss MDM: 09:16 Patient medically screened. [facility] 09:54 Data reviewed: vital signs, nurses notes, lab test result(s), radiologic studies, plain david films. 11/11 09:17 Order name: Flu; Complete Time: 10:29 [facility] 11/11 09:17 Order name: Chest Pa And Lat (2 Views) XRAY david Administered Medications: 10:20 Drug: Zithromax 500 mg Route: PO; bp 10:55 Follow up: Response: No adverse reaction bp 10:20 Drug: Tamiflu 75 mg Route: PO; bp 10:55 Follow up: Response: No adverse reaction bp 10:20 Drug: Xopenex 1.25 mg Route: Inhalation; bp 10:20 Drug: AtroVENT Aerosol 0.5 mg Route: Inhalation; bp 10:20 Drug: Motrin 600 mg Route: PO; bp 10:54 Follow up: Response: No adverse reaction bp 10:20 Drug: Rocephin (cefTRIAXone) 1 grams Route: IM; Site: right gluteus; bp 10:54 Follow up: Response: No adverse reaction bp Disposition: 11/11/19 09:57 Discharged to Home. Impression: Acute upper respiratory infection, unspecified, Fever, unspecified, Influenza due to other identified influenza virus - B. - Condition is Stable. - Discharge Instructions: Influenza, Adult, Upper Respiratory Infection, Adult, Cool Mist Vaporizer, Influenza, Adult, [id number], Cough, Adult. - Prescriptions for Medrol (Bryon) 4 mg Oral Tablets, Dose Pack - take 1 tablet by ORAL route as directed - follow package instructions; 1 packet. Albuterol Sulfate 90 mcg/actuation - inhale 1-2 puff by INHALATION route every 4-6 hours; 1 Inhaler. Tamiflu 75 mg Oral Capsule - take 1 tablet by ORAL route every 12 hours for 5 days; 10 tablet. Zithromax 500 mg Oral Tablet - take 1 tablet by ORAL route once daily for 4 days; 4 tablet. - Medication Reconciliation Form, Thank You Letter, Antibiotic Education, Prescription Opioid Use form. - Follow up: Augustin Bishop MD; When: 2 - 3 days; Reason: Recheck today's complaints, Continuance of care, Re-evaluation by your physician. - Problem is new. - Symptoms have improved. Signatures: Dispatcher [employer] EDMS Ze Saini MD MD cha Smirch, Shelby, LUCIEN MCGRAW Jimbo Stewart RN RN bp Corrections: (The following items were deleted from the chart) 10:30 09:57 11/11/2019 09:57 Discharged to Home. Impression: Acute upper respiratory david infection, unspecified; Fever, unspecified. Condition is Stable. Forms are Medication Reconciliation Form, Thank You Letter, Antibiotic Education, Prescription Opioid Use. Follow up: Augustin Bishop; When: 2 - 3 days; Reason: Recheck today's complaints, Continuance of care, Re-evaluation by your physician. Problem is new. Symptoms have improved. david 10:55 10:30 11/11/2019 09:57 Discharged to Home. Impression: Acute upper respiratory bp infection, unspecified; Fever, unspecified; Influenza due to other identified influenza virus - B. Condition is Stable. Discharge Instructions: Upper Respiratory Infection, Adult, Cool Mist Vaporizer, Cough, Adult. Prescriptions for Medrol (Bryon) 4 mg Oral Tablets, Dose Pack - take 1 tablet by ORAL route as directed - follow package instructions; 1 packet, Albuterol Sulfate 90 mcg/actuation - inhale 1-2 puff by INHALATION route every 4-6 hours; 1 Inhaler, Tamiflu 75 mg Oral Capsule - take 1 tablet by ORAL route every 12 hours for 5 days; 10 tablet, Zithromax 500 mg Oral Tablet - take 1 tablet by ORAL route once daily for 4 days; 4 tablet. and Forms are Medication Reconciliation Form, Thank You Letter, Antibiotic Education, Prescription Opioid Use. Follow up: Augustin Bishop; When: 2 - 3 days; Reason: Recheck today's complaints, Continuance of care, Re-evaluation by your physician. Problem is new. Symptoms have improved. david
[2019-11-11] MEDS ORDERED: LEVALBUTEROL 1.25 MG/3 ML NEB ONE (10:24)
[2019-11-11] MEDS ORDERED: OSELTAMIVIR 75 MG CAP ONE (10:24)
[2019-11-11] MEDS ORDERED: IPRATROPIUM BROM 0.5MG/2.5ML ONE (10:24)
[2019-11-11] MEDS ORDERED: AZITHROMYCIN 250 MG TAB ONE (10:24)
[2019-11-11] MEDS ORDERED: IBUPROFEN 200 MG TAB PO ONE (10:24)
[2019-11-11] MEDS ORDERED: CEFTRIAXONE 1000 MG/VIAL ONE (10:25)
[2019-11-11 11:06] VITALS: BP 154/99; TEMP 98; O2SAT 99
--- NOTE | 2019-11-11 12:13 | RAD REPORT ---
EXAM DESCRIPTION: RAD - Chest Pa And Lat (2 Views) - 11/11/2019 9:38 am CLINICAL HISTORY: COUGH Chest pain. COMPARISON: Chest Pa And Lat (2 Views) dated 05/14/2019; Chest Pa And Lat (2 Views) dated 03/05/2019; C hest Single View dated 01/03/2018; CHEST SINGLE VIEW dated 09/19/2012 FINDINGS: The lungs are clear. The heart is mildly enlarged in size. No displaced fractures.
== END 2019-11-11 10:55 | disposition home or self-care (01) ==
LOC: ER 09:00
DX: J10.1 Influenza due to other identified influenza virus with other respiratory manifestations (principal); R05 Cough; I10 Essential (primary) hypertension; Z88.2 Allergy status to sulfonamides
CPT/HCPCS: 71046; 87804; 96372; 99284

== ENCOUNTER 2019-12-31 06:57 | Emergency (ER) | payer OTHER ==
[2019-12-31] MEDS ORDERED: METHYLPREDNISOLONE 125 MG INJ ONE (07:54)
[2019-12-31] MEDS ORDERED: KETOROLAC 30 MG/ML INJ ONE (07:54)
[2019-12-31 08:08] LABS: Absolute Lymphocytes (CBC) 1.4 K/uL (0.7-4.9); Basophils % 0.6 % (0-1.3); Hematocrit 36.5 % (36.0-45.0); Lymphocytes % 15.5 % (15.3-44.8); MPV 9.9 fL (7.6-11.3); RBC Red Blood Cell Count 4.09 M/uL (3.86-4.86)
[2019-12-31 08:28] LABS: Potassium 3.6 mmol/L (3.5-5.1)
--- NOTE | 2019-12-31 08:36 | RAD REPORT ---
EXAM DESCRIPTION: CTSpine Lumbar Wo Con12/31/2019 8:19 am CLINICAL HISTORY: Back injury with back pain and radiculopathy status post fall COMPARISON: None TECHNIQUE: Computed axial tomography lumbar spine was obtained with coronal and sagittal reconstruct ion. All CT scans are performed using dose optimization technique as appropriate and may include automated exposure control or mA/KV adjustment according to patient size. FINDINGS: No fracture is seen. No dislocation is noted. A small right lateral disc herniations L4-5 and L5-S1 Small hemangioma L2 vertebral body IMPRESSION: Negative for a lumbar fracture. Small right lateral disc herniations L4-5 and L5-S1. If clinically indicated nonemergent MRI could be obtained for further evaluation
--- NOTE | 2019-12-31 09:20 | RAD REPORT ---
EXAM DESCRIPTION: RAD - Pelvis - 12/31/2019 8:11 am CLINICAL HISTORY: Right hip pain FINDINGS: No fracture or dislocation is seen. If the patient continues to have symptoms to suggest an occult fracture then MRI would be recommended
--- NOTE | 2019-12-31 09:55 | ER ---
Nurse's Notes [facility] Name: Nhi Santos Age: 69 yrs Sex: Female : 1950 Arrival Date: 12/31/2019 Time: 06:59 Bed 8 Private MD: Diagnosis: Low back pain;Herniated lumbar Disks;Strain of muscle, fascia and tendon of lower back Presentation: 12/31 07:10 Presenting complaint: Patient states: slid off commode on Tuesday night, has had pain iw to right lower back and hip area since then, felt a pop in hip. Transition of care: patient was not received from another setting of care. Onset of symptoms was December 29, 2019. Risk Assessment: Do you want to hurt yourself or someone else? Patient reports no desire to harm self or others. Initial Sepsis Screen: Does the patient meet any 2 criteria? No. Patient's initial sepsis screen is negative. Does the patient have a suspected source of infection? No. Patient's initial sepsis screen is negative. Care prior to arrival: None. 07:10 Method Of Arrival: Ambulatory iw 07:21 Acuity: TESSY 3 iw Historical: - Allergies: 07:12 Sulfa (Sulfonamide Antibiotics); iw - Home Meds: 07:12 alprazolam 2 mg Oral Tb24 1 tab once daily [Active]; amlodipine 10 mg tab 1 tab once iw daily [Active]; carvedilol 6.25 mg Oral tab 1 tab daily [Active]; clonidine HCl 0.3 mg Oral tab 1 tab 2 times per day [Active]; losartan-hydrochlorothiazide 100-12.5 mg Oral tab 1 tab once daily [Active]; [place] 10-325 mg Oral tab 1 tab every 4 hours [Active]; omeprazole 40 mg Oral cpDR 1 cap once daily [Active]; - PMHx: 07:12 Arthritis; Hypertension; Lupus; neuropathy; PUD; iw - PSHx: 07:12 Cholecystectomy; Hysterectomy; iw - Immunization history:: Adult Immunizations not up to date. - Coronavirus screen:: The patient has NOT traveled to [place] in the past 14 days. Proceed with normal triage process as indicated. - Social history:: Smoking status: Patient denies any tobacco usage or history of. - Ebola Screening: : Patient negative for fever greater than or equal to 101.5 degrees Fahrenheit, and additional compatible Ebola Virus Disease symptoms Patient denies exposure to infectious person Patient denies travel to an Ebola-affected area in the 21 days before illness onset No symptoms or risks identified at this time. Screenin:55 Abuse screen: Denies threats or abuse. Denies injuries from another. Nutritional sv screening: No deficits noted. Tuberculosis screening: No symptoms or risk factors identified. Fall Risk None identified. Assessment: 07:55 General: Appears in no apparent distress. uncomfortable, well developed, Behavior is sv calm, cooperative, appropriate for age. Pain: Complains of pain in right low back and right hip Pain currently is 8 out of 10 on a pain scale. Is intermittent, episodic, Aggravated by increased activity, weight bearing. Neuro: Level of Consciousness is awake, alert, obeys commands, Oriented to person, place, time, situation, Moves all extremities. Full function. Respiratory: Airway is patent Respiratory effort is even, unlabored, Respiratory pattern is regular, symmetrical. Derm: Skin is intact, Skin is pink, warm \T\ dry. Musculoskeletal: Range of motion: intact in all extremities. 08:32 Reassessment: Patient appears in no apparent distress at this time. No changes from sv previously documented assessment. Patient and/or family updated on plan of care and expected duration. Pain level reassessed. Patient is alert, oriented x 3, equal unlabored respirations, skin warm/dry/pink. 09:37 Reassessment: Patient appears in no apparent distress at this time. Patient and/or sv family updated on plan of care and expected duration. Pain level reassessed. Patient is alert, oriented x 3, equal unlabored respirations, skin warm/dry/pink. 09:44 Reassessment: Dr Lua in speaking with the pt regarding results. sv 10:17 Reassessment: Patient appears in no apparent distress at this time. Patient and/or sv family updated on plan of care and expected duration. Pain level reassessed. Patient is alert, oriented x 3, equal unlabored respirations, skin warm/dry/pink. Patient states feeling better. Patient states symptoms have improved. Vital Signs: 07:12 BP 153 / 97; Pulse 89; Resp 16; Temp 98.4; Pulse Ox 97% on R/A; Weight 115.67 kg; iw Height 5 ft. 4 in. (162.56 cm); Pain 8/10; 08:47 BP 156 / 76; Pulse 58; Resp 18; Pulse Ox 100% ; sv 09:33 BP 156 / 75; Pulse 64; Resp 16; Pulse Ox 97% ; sv 10:16 BP 150 / 77; Pulse 62; Resp 16; Pulse Ox 99% ; sv 07:12 Body Mass Index 43.77 (115.67 kg, 162.56 cm) iw ED Course: 06:59 Patient arrived in ED. ds1 07:11 Triage completed. iw 07:12 Arm band placed on. iw 07:17 Ezequiel Lua MD is Attending Physician. kdr 07:49 Eryn Goodrich RN is Primary Nurse. sv 07:55 Patient has correct armband on for positive identification. Placed in gown. Bed in low sv position. Call light in reach. Side rails up X 1. Adult w/ patient. Pulse ox on. NIBP on. Door closed. Head of bed elevated. 07:55 Inserted saline lock: 20 gauge in right antecubital area, using aseptic technique. sv Blood collected. Flushed right antecubital with 5 ml normal saline. 08:04 Patient moved to radiology via wheelchair. sv 08:15 Pelvis XRAY In Process Unspecified. EDMS 08:28 CT Lumbar Spine Wo Con In Process Unspecified. EDMS 10:17 No provider procedures requiring assistance completed. IV discontinued, intact, sv bleeding controlled, No redness/swelling at site. Pressure dressing applied. Administered Medications: 07:57 Drug: TORadol - Ketorolac 15 mg Route: IVP; Site: right antecubital; sv 08:33 Follow up: Response: No adverse reaction sv 07:59 Drug: SOLU-Medrol 125 mg Route: IVP; Site: right antecubital; sv 08:33 Follow up: Response: No adverse reaction sv 08:32 Drug: Robaxin 1 grams Route: IVPB; Infused Over: 1 hrs; Site: right antecubital; sv 09:40 Follow up: Response: No adverse reaction; IV Status: Completed infusion; IV Intake: sv 110ml Intake: 09:40 IV: 110ml; Total: 110ml. sv Outcome: 09:55 Discharge ordered by . kdr 10:17 Discharged to home ambulatory, with family. sv 10:17 Condition: stable 10:17 Condition: improved 10:17 Discharge instructions given to patient, Instructed on discharge instructions, follow up and referral plans. medication usage, Demonstrated understanding of instructions, follow-up care, medications, Prescriptions given X 4. 10:17 Patient left the ED. sv Signatures: Dispatcher [employer] EDEryn Martinez RN RN sv Ezequiel Lua MD MD kdr Sanford, Demi ds1 Comfort Proctor RN RN iw Corrections: (The following items were deleted from the chart) 07:21 07:10 Acuity: TESSY 4 iw iw
--- NOTE | 2019-12-31 09:55 | EDPHYS ---
Physician Documentation [facility] Name: Nhi Santos Age: 69 yrs Sex: Female : 1950 Arrival Date: 12/31/2019 Time: 06:59 Bed 8 Private MD: ED Physician Ezequiel Lua HPI: 12/31 08:39 This 69 yrs old Black Female presents to ER via Ambulatory with complaints of Back kdr Injury. 08:39 The patient presents with pain that is acute. The symptoms are located in the low back, kdr Right hip, iliac crest . Onset: The symptoms/episode began/occurred suddenly, 2 day(s) ago. The pain radiates to the right leg. Associated signs and symptoms: Pertinent positives: Pain with urination. The problem was sustained during a fall, while sitting, The patient was sitting down on the toilet and fell off. [place] a pop in her hip and has been having pain in that area since then. Modifying factors: The patient symptoms are alleviated by nothing, the patient symptoms are aggravated by any movement. Severity of symptoms: At their worst the symptoms were moderate, incapacitating, in the emergency department the symptoms are unchanged. The patient has not experienced similar symptoms in the past. The patient c/o pain to the right hip. Has been taking the Gabapentin without relief.. Historical: - Allergies: 07:12 Sulfa (Sulfonamide Antibiotics); iw - Home Meds: 07:12 alprazolam 2 mg Oral Tb24 1 tab once daily [Active]; amlodipine 10 mg tab 1 tab once iw daily [Active]; carvedilol 6.25 mg Oral tab 1 tab daily [Active]; clonidine HCl 0.3 mg Oral tab 1 tab 2 times per day [Active]; losartan-hydrochlorothiazide 100-12.5 mg Oral tab 1 tab once daily [Active]; [place] 10-325 mg Oral tab 1 tab every 4 hours [Active]; omeprazole 40 mg Oral cpDR 1 cap once daily [Active]; - PMHx: 07:12 Arthritis; Hypertension; Lupus; neuropathy; PUD; iw - PSHx: 07:12 Cholecystectomy; Hysterectomy; iw - Immunization history:: Adult Immunizations not up to date. - Coronavirus screen:: The patient has NOT traveled to [place] in the past 14 days. Proceed with normal triage process as indicated. - Social history:: Smoking status: Patient denies any tobacco usage or history of. - Ebola Screening: : Patient negative for fever greater than or equal to 101.5 degrees Fahrenheit, and additional compatible Ebola Virus Disease symptoms Patient denies exposure to infectious person Patient denies travel to an Ebola-affected area in the 21 days before illness onset No symptoms or risks identified at this time. ROS: 08:39 Constitutional: Negative for fever, chills, and weight loss, Eyes: Negative for injury, kdr pain, redness, and discharge, ENT: Negative for injury, pain, and discharge, Neck: Negative for injury, pain, and swelling, Cardiovascular: Negative for chest pain, palpitations, and edema, Respiratory: Negative for shortness of breath, cough, wheezing, and pleuritic chest pain, Abdomen/GI: Negative for abdominal pain, nausea, vomiting, diarrhea, and constipation, Back: Negative for injury and pain, : Negative for injury, bleeding, discharge, and swelling, Skin: Negative for injury, rash, and discoloration, Neuro: Negative for headache, weakness, numbness, tingling, and seizure activity. Psych: Negative for depression, anxiety, suicide ideation, homicidal ideation, and hallucinations, Allergy/Immunology: Negative for hives, rash, and allergies, Endocrine: Negative for neck swelling, polydipsia, polyuria, polyphagia, and marked weight changes, Hematologic/Lymphatic: Negative for swollen nodes, abnormal bleeding, and unusual bruising. 08:39 MS/extremity: Positive for decreased range of motion, pain, tenderness, Negative for abrasion, contusion, puncture, rash. Exam: 08:39 Constitutional: This is a well developed, well nourished patient who is awake, alert, kdr and in no acute distress. Head/Face: Normocephalic, atraumatic. Eyes: Pupils equal round and reactive to light, extra-ocular motions intact. Lids and lashes normal. Conjunctiva and sclera are non-icteric and not injected. Cornea within normal limits. Periorbital areas with no swelling, redness, or edema. Neck: Trachea midline, no thyromegaly or masses palpated, and no cervical lymphadenopathy. Supple, full range of motion without nuchal rigidity, or vertebral point tenderness. No Meningismus. Chest/axilla: Normal chest wall appearance and motion. Nontender with no deformity. No lesions are appreciated. Cardiovascular: Regular rate and rhythm with a normal S1 and S2. No gallops, murmurs, or rubs. Normal PMI, no JVD. No pulse deficits. Respiratory: Lungs have equal breath sounds bilaterally, clear to auscultation and percussion. No rales, rhonchi or wheezes noted. No increased work of breathing, no retractions or nasal flaring. Abdomen/GI: Soft, non-tender, with normal bowel sounds. No distension or tympany. No guarding or rebound. No evidence of tenderness throughout. Back: No spinal tenderness. No costovertebral tenderness. Full range of motion. Skin: Warm, dry with normal turgor. Normal color with no rashes, no lesions, and no evidence of cellulitis. MS/ Extremity: Pulses equal, no cyanosis. Neurovascular intact. Full, normal range of motion. Neuro: Awake and alert, GCS 15, oriented to person, place, time, and situation. Cranial nerves II-XII grossly intact. Motor strength 5/5 in all extremities. Sensory grossly intact. Cerebellar exam normal. Normal gait. Psych: Awake, alert, with orientation to person, place and time. Behavior, mood, and affect are within normal limits. Vital Signs: 07:12 BP 153 / 97; Pulse 89; Resp 16; Temp 98.4; Pulse Ox 97% on R/A; Weight 115.67 kg; iw Height 5 ft. 4 in. (162.56 cm); Pain 8/10; 08:47 BP 156 / 76; Pulse 58; Resp 18; Pulse Ox 100% ; sv 09:33 BP 156 / 75; Pulse 64; Resp 16; Pulse Ox 97% ; sv 10:16 BP 150 / 77; Pulse 62; Resp 16; Pulse Ox 99% ; sv 07:12 Body Mass Index 43.77 (115.67 kg, 162.56 cm) iw MDM: 09:55 Patient medically screened. kdr 09:58 Data reviewed: vital signs, nurses notes, lab test result(s), radiologic studies. kdr Counseling: I had a detailed discussion with the patient and/or guardian regarding: the historical points, exam findings, and any diagnostic results supporting the discharge/admit diagnosis, lab results, radiology results, the need for outpatient follow up. Special discussion: I discussed with the patient/guardian in detail that at this point there is no indication for admission to the hospital. It is understood, however, that if the symptoms persist or worsen the patient needs to return immediately for re-evaluation. ED course: The patient was discharged in good condition and she was happy with the care provided and the plan for discharge and follow-up. 12/31 07:42 Order name: CBC with Diff; Complete Time: 08:33 kdr 12/31 07:42 Order name: Chem 7; Complete Time: 08:33 kdr 12/31 07:42 Order name: CT Lumbar Spine Wo Con; Complete Time: 10:54 kdr 12/31 07:42 Order name: Pelvis XRAY kdr 12/31 10:06 Order name: Urine Dipstick--Ancillary (enter results) bd 12/31 07:42 Order name: Urine Dipstick-Ancillary (obtain specimen); Complete Time: 10:04 kdr Administered Medications: 07:57 Drug: TORadol - Ketorolac 15 mg Route: IVP; Site: right antecubital; sv 08:33 Follow up: Response: No adverse reaction sv 07:59 Drug: SOLU-Medrol 125 mg Route: IVP; Site: right antecubital; sv 08:33 Follow up: Response: No adverse reaction sv 08:32 Drug: Robaxin 1 grams Route: IVPB; Infused Over: 1 hrs; Site: right antecubital; sv 09:40 Follow up: Response: No adverse reaction; IV Status: Completed infusion; IV Intake: sv 110ml Disposition: 12/31/19 09:55 Discharged to Home. Impression: Low back pain, Herniated lumbar Disks, Strain of muscle, fascia and tendon of lower back. - Condition is Stable. - Discharge Instructions: Musculoskeletal Pain, Back Injury Prevention, [id number], Back Pain, Adult, Pain-dv-Whyl, Back Exercises, Ysad-iy-Wewf, Herniated Disk, Ctau-nx-Iyor. - Prescriptions for ketorolac 10 mg Oral tablet - take 1 tablet by ORAL route every 4-6 hours not to exceed 40mg in 24hrs for up to 5 days total use; 15 tablet. Robaxin 500 mg Oral Tablet - take 2 tablet by ORAL route every 6 hours As needed; 40 tablet. Medrol ([place]) 4 mg Oral Tablets, Dose Pack - take 1 tablet by ORAL route as directed - follow package instructions; 1 packet. Pepcid 20 mg Oral Tablet - take 1 tablet by ORAL route once daily; 20 tablet. - Medication Reconciliation Form, Thank You Letter, Prescription Opioid Use form. - Follow up: Private Physician; When: 2 - 3 days; Reason: If symptoms return, Further diagnostic work-up, Recheck today's complaints, Continuance of care, Re-evaluation by your physician. - Problem is an acute exacerbation. - Symptoms have improved. Signatures: Dispatcher [employer] EDEryn Martinez RN RN Ezequiel Lua MD MD [facility] Comfort Proctor RN RN iw Corrections: (The following items were deleted from the chart) 10:17 09:55 12/31/2019 09:55 Discharged to Home. Impression: Low back pain; Herniated lumbar sv Disks; Strain of muscle, fascia and tendon of lower back. Condition is Stable. Forms are Medication Reconciliation Form, Thank You Letter, Antibiotic Education, Prescription Opioid Use. Follow up: Private Physician; When: 2 - 3 days; Reason: If symptoms return, Further diagnostic work-up, Recheck today's complaints, Continuance of care, Re-evaluation by your physician. Problem is an acute exacerbation. Symptoms have improved. kdr
[2019-12-31 10:17] LABS: Urine Blood TRACE (NEG); Urine Glucose TRACE (NEG); Urine Protein NEGATIVE (NEG)
[2019-12-31 10:41] VITALS: TEMP 98.4
[2019-12-31 10:49] VITALS: BP 150/77; O2SAT 99
== END 2019-12-31 10:17 | disposition home or self-care (01) ==
LOC: ER 06:57
DX: S39.012A Strain of muscle, fascia and tendon of lower back, initial encounter (principal); M51.26 Other intervertebral disc displacement, lumbar region; I10 Essential (primary) hypertension; W18.11XA Fall from or off toilet without subsequent striking against object, initial encounter; Y93.89 Activity, other specified; Y92.9 Unspecified place or not applicable; Z88.2 Allergy status to sulfonamides
CPT/HCPCS: 96365; 85025; 80048; 36415; 81003; 72131; 72170; 96375; 99284; J2930; J2800

== ENCOUNTER 2020-03-24 08:43 | Emergency (ER) | payer OTHER ==
[2012-02-09 12:25] VITALS: BP 178/77
--- NOTE | 2020-03-24 10:06 | RAD REPORT ---
EXAM DESCRIPTION: RAD - Chest Single View - 03/24/2020 9:52 am CLINICAL HISTORY: COUGH, congestion COMPARISON: Two-view chest November 2019 TECHNIQUE: AP portable chest image was obtained 03/24/2020 9:52 am . FINDINGS: Lung volumes are low compared to the prior study. Large body habitus contributes to exam l imitation as well. No peripheral mass or consolidation. Interstitial pattern is not substantially different when adjusti ng for technique and respiratory differences. Trachea is midline. Heart and vasculature are normal. No measurable pleural effusion and no pneumothorax. No acute bony abnormality seen. No acute aortic findings suspected. IMPRESSION: Exam is limited somewhat by body habitus and shallow inspiration portable technique. No acute cardiopulmonary finding or significant interval change suspected.
--- NOTE | 2020-03-24 10:17 | ER ---
Nurse's Notes [facility] Name: Nhi Santos Age: 69 yrs Sex: Female : 1950 Arrival Date: 03/24/2020 Time: 08:45 Bed 18 Private MD: Augustin Bishop E Diagnosis: Acute laryngitis Presentation: 03/24 08:51 Chief complaint: Patient states: cough, congestion and itchy throat that began ss yesterday. Coronavirus screen: Proceed with normal triage. Patient reports a cough. Patient denies shortness of breath or difficulty breathing. Patient denies measured and/or subjective temperature greater than 100.4F prior to today's visit. Patient denies travel on a cruise ship or to a country the [facility] currently lists as an affected area. Patient denies contact with known and/or suspected case of COVID-19. Ebola Screen: Patient denies exposure to infectious person. Patient denies travel to an Ebola-affected area in the 21 days before illness onset. Resp Distress? No respiratory distress is noted at this time. Initial Sepsis Screen: Does the patient meet any 2 criteria? No. Patient's initial sepsis screen is negative. Does the patient have a suspected source of infection? No. Patient's initial sepsis screen is negative. Risk Assessment: Do you want to hurt yourself or someone else? Patient reports no desire to harm self or others. Onset of symptoms was March 23, 2020. 08:51 Method Of Arrival: Ambulatory ss 08:51 Acuity: TESSY 4 ss Historical: - Allergies: 08:54 Sulfa (Sulfonamide Antibiotics); ss - Home Meds: 12:31 alprazolam 2 mg Oral Tb24 1 tab once daily [Active]; amlodipine 10 mg tab 1 tab once tw2 daily [Active]; carvedilol 6.25 mg Oral tab 1 tab daily [Active]; clonidine HCl 0.3 mg Oral tab 1 tab 2 times per day [Active]; losartan-hydrochlorothiazide 100-12.5 mg Oral tab 1 tab once daily [Active]; [place] 10-325 mg Oral tab 1 tab every 4 hours [Active]; omeprazole 40 mg Oral cpDR 1 cap once daily [Active]; - PMHx: 08:54 Arthritis; Hypertension; Lupus; neuropathy; PUD; ss - PSHx: 08:54 Cholecystectomy; Hysterectomy; ss - Immunization history:: Adult Immunizations up to date. - Social history:: Smoking status: Patient denies any tobacco usage or history of. - Family history:: not pertinent. - Hospitalizations: : No recent hospitalization is reported. Screenin:12 Fall Risk None identified. tw2 12:30 Abuse screen: Denies threats or abuse. Nutritional screening: No deficits noted. tw2 Tuberculosis screening: No symptoms or risk factors identified. Assessment: 09:12 General: Appears in no apparent distress. obese, well groomed, Behavior is calm, tw2 cooperative, appropriate for age. Pain: Complains of pain in uvula, left aspect of posterior pharynx and right aspect of posterior pharynx. Neuro: Level of Consciousness is awake, alert, obeys commands, Oriented to person, place, time, situation. Cardiovascular: Capillary refill < 3 seconds Patient's skin is warm and dry. Respiratory: Reports cough that is non-productive, dry, persistent Airway is patent Respiratory effort is even, unlabored, Respiratory pattern is regular, symmetrical, Breath sounds are clear bilaterally. GI: No signs and/or symptoms were reported involving the gastrointestinal system. : No signs and/or symptoms were reported regarding the genitourinary system. EENT: Reports nasal congestion nasal discharge. Musculoskeletal: Range of motion: intact in all extremities. 10:34 Reassessment: Patient appears in no apparent distress at this time. No changes from tw2 previously documented assessment. Patient and/or family updated on plan of care and expected duration. Pain level reassessed. Patient is alert, oriented x 3, equal unlabored respirations, skin warm/dry/pink. Vital Signs: 08:51 BP 142 / 72; Pulse 69; Resp 16; Temp 97.8(TE); Pulse Ox 99% on R/A; Weight 117.48 kg; Height 5 ft. 5 in. (165.10 cm); Pain 0/10; 08:51 Body Mass Index 43.10 (117.48 kg, 165.10 cm) ED Course: 08:45 Patient arrived in ED. mr 08:45 Augustin Bishop MD is Private Physician. mr 08:51 Maurice Zhao MD is Attending Physician. rn 08:52 Bed in low position. Call light in reach. Pulse ox on. NIBP on. tw2 08:53 Triage completed. 08:54 Arm band placed on right wrist. ss 09:11 Latha Frances, RN is Primary Nurse. tw2 09:11 Flu Sent. tw2 09:11 Strep Sent. tw2 09:52 XRAY Chest (1 view) In Process Unspecified. EDMS 10:34 No provider procedures requiring assistance completed. Patient did not have IV access tw2 during this emergency room visit. Administered Medications: No medications were administered Outcome: 10:17 Discharge ordered by . rn 10:34 Patient left the ED. tw2 10:34 Discharged to home ambulatory. tw2 10:34 Discharged to home ambulatory. 10:34 Condition: stable 10:34 Discharge instructions given to patient, Instructed on discharge instructions, follow up and referral plans. medication usage, Demonstrated understanding of instructions, follow-up care, medications, Prescriptions given X 1. Signatures: Dispatcher [employer] EDNE Norma Wright Roman, MD MD rn Smirch, Shelby, RN RN Latha Frances, LUCIEN RN tw2
--- NOTE | 2020-03-24 10:18 | EDPHYS ---
Physician Documentation [facility] Name: Nhi Santos Age: 69 yrs Sex: Female : 1950 Arrival Date: 03/24/2020 Time: 08:45 Bed 18 Private MD: Augustin Bishop E ED Physician Maurice Zhao HPI: 03/24 09:00 This 69 yrs old Black Female presents to ER via Ambulatory with complaints of Cough, rn Congestion. 09:00 The patient or guardian reports cough, hoarse voice. rn 09:01 Onset: The symptoms/episode began/occurred yesterday. Severity of symptoms: At their rn worst the symptoms were mild, in the emergency department the symptoms are unchanged. Modifying factors: The symptoms are alleviated by nothing, the symptoms are aggravated by nothing. Associated signs and symptoms: Pertinent positives: sore throat, Pertinent negatives: chest pain, diarrhea, fever, rhinorrhea, vomiting. The patient has not experienced similar symptoms in the past. Reports yesterday began with itchy throat, today woke up with hoarse voice, + productive cough, reports "always short of breath" and attributes it to her Lupus. No chest pain. . Historical: - Allergies: 08:54 Sulfa (Sulfonamide Antibiotics); ss - Home Meds: 12:31 alprazolam 2 mg Oral Tb24 1 tab once daily [Active]; amlodipine 10 mg tab 1 tab once tw2 daily [Active]; carvedilol 6.25 mg Oral tab 1 tab daily [Active]; clonidine HCl 0.3 mg Oral tab 1 tab 2 times per day [Active]; losartan-hydrochlorothiazide 100-12.5 mg Oral tab 1 tab once daily [Active]; [place] 10-325 mg Oral tab 1 tab every 4 hours [Active]; omeprazole 40 mg Oral cpDR 1 cap once daily [Active]; - PMHx: 08:54 Arthritis; Hypertension; Lupus; neuropathy; PUD; ss - PSHx: 08:54 Cholecystectomy; Hysterectomy; ss - Immunization history:: Adult Immunizations up to date. - Social history:: Smoking status: Patient denies any tobacco usage or history of. - Family history:: not pertinent. - Hospitalizations: : No recent hospitalization is reported. ROS: 09:01 Constitutional: Negative for fever, chills, and weight loss, Eyes: Negative for injury, rn pain, redness, and discharge, ENT: + itchy throat and hoarse voice Neck: Negative for injury, pain, and swelling, Cardiovascular: Negative for chest pain, palpitations, and edema, Respiratory: Negative for wheezing, and pleuritic chest pain, Abdomen/GI: Negative for abdominal pain, nausea, vomiting, diarrhea, and constipation, MS/Extremity: Negative for injury and deformity, Skin: Negative for injury, rash, and discoloration, Neuro: Negative for headache, weakness, numbness, tingling, and seizure. Exam: 09:01 Constitutional: This is a well developed, well nourished patient who is awake, alert, rn and in no acute distress. Ambulatory to room without distress or assistance. ENT: No stridor. + non-tender mild cervical LAD Neck: Trachea midline, Supple, full range of motion without nuchal rigidity, or vertebral point tenderness. No Meningismus. Cardiovascular: Regular rate and rhythm. No pulse deficits. Respiratory: Unlabored breathing, speaking full sentences. Skin: Warm, dry MS/ Extremity: Pulses equal, no cyanosis. Neuro: Awake and alert, GCS 15. Cranial nerves II-XII grossly intact. Motor strength 5/5 in all extremities. Sensory grossly intact. Cerebellar exam normal. Normal gait. Vital Signs: 08:51 BP 142 / 72; Pulse 69; Resp 16; Temp 97.8(TE); Pulse Ox 99% on R/A; Weight 117.48 kg; ss Height 5 ft. 5 in. (165.10 cm); Pain 0/10; 08:51 Body Mass Index 43.10 (117.48 kg, 165.10 cm) ss MDM: 08:51 Patient medically screened. rn 10:16 Differential Diagnosis: Bronchitis Influenza Upper Respiratory Infection Pharyngitis rn Viral Syndrome Pneumonia. Differential Diagnosis: Other COVID-19. Data reviewed: vital signs, nurses notes. Test interpretation: by ED physician or midlevel provider: plain radiologic studies, CXR neg for acute infiltrate. Counseling: I had a detailed discussion with the patient and/or guardian regarding: the historical points, exam findings, and any diagnostic results supporting the discharge/admit diagnosis, lab results, radiology results, the need for outpatient follow up, to return to the emergency department if symptoms worsen or persist or if there are any questions or concerns that arise at home. Special discussion: I discussed with the patient/guardian in detail that at this point there is no indication for admission to the hospital. It is understood, however, that if the symptoms persist or worsen the patient needs to return immediately for re-evaluation. ED course: Recommended testing fo COVID-19, patient declines. . 03/24 08:58 Order name: Strep; Complete Time: 09:44 rn 03/24 08:58 Order name: Flu; Complete Time: 09:44 rn 03/24 08:58 Order name: XRAY Chest (1 view); Complete Time: 10:10 rn 03/24 09:40 Order name: Throat Culture EDMS Administered Medications: No medications were administered Disposition: 03/24/20 10:17 Discharged to Home. Impression: Acute laryngitis. - Condition is Stable. - Discharge Instructions: Laryngitis. - Prescriptions for Augmentin 875- 125 mg Oral Tablet - take 1 tablet by ORAL route every 12 hours for 10 days; 20 tablet. - Medication Reconciliation Form, Thank You Letter, Antibiotic Education, Prescription Opioid Use form. - Follow up: Private Physician; When: As needed; Reason: Recheck today's complaints, Re-evaluation by your physician. - Problem is new. - Symptoms have improved. Signatures: Dispatcher [employer] EDMS Maurice Zhao MD MD rn Smirch, Shelby, RN RN ss Wise, Tara, RN RN tw2 Corrections: (The following items were deleted from the chart) 10:34 10:17 03/24/2020 10:17 Discharged to Home. Impression: Acute laryngitis. Condition is tw2 Stable. Forms are Medication Reconciliation Form, Thank You Letter, Antibiotic Education, Prescription Opioid Use. Follow up: Private Physician; When: As needed; Reason: Recheck today's complaints, Re-evaluation by your physician. Problem is new. Symptoms have improved. rn
== END 2020-03-24 10:34 | disposition home or self-care (01) ==
LOC: ER 08:43
DX: J02.9 Acute pharyngitis, unspecified (principal); I10 Essential (primary) hypertension; Z88.2 Allergy status to sulfonamides
CPT/HCPCS: 71045; 87070; 87081; 87804; 99284

== ENCOUNTER 2020-03-26 07:43 | Emergency (ER) | payer OTHER ==
--- NOTE | 2020-03-26 08:41 | RAD REPORT ---
EXAM DESCRIPTION: RAD - Chest Pa And Lat (2 Views) - 03/26/2020 8:34 am CLINICAL HISTORY: COUGH Chest pain. COMPARISON: Chest Single View dated 03/24/2020; Chest Pa And Lat (2 Views) dated 11/11/2019; Chest Pa A nd Lat (2 Views) dated 05/14/2019; Chest Pa And Lat (2 Views) dated 03/05/2019 FINDINGS: The lungs are clear. The heart is normal in size. No displaced fractures. Tortuous thoraci c aorta. IMPRESSION: No acute or concerning finding suspected.
--- NOTE | 2020-03-26 08:46 | EDPHYS ---
Physician Documentation [facility] Name: Nhi Santos Age: 69 yrs Sex: Female : 1950 Arrival Date: 03/26/2020 Time: 07:45 Bed 6 Private MD: Augustin Bishop E ED Physician Ezequiel Lua HPI: 03/26 08:13 This 69 yrs old Black Female presents to ER via Ambulatory with complaints of Cough. kb 08:13 The patient or guardian reports cough, that is intermittent, described as mild, with kb productive sputum, clear, hoarse voice. Onset: The symptoms/episode began/occurred 4 day(s) ago. Severity of symptoms: At their worst the symptoms were mild, in the emergency department the symptoms are unchanged. Modifying factors: The symptoms are alleviated by nothing, the symptoms are aggravated by nothing. Associated signs and symptoms: Pertinent negatives: chest pain, diarrhea, ear ache, fever, nausea, rhinorrhea, sore throat, vomiting. The patient has experienced similar episodes in the past. The patient has been recently seen at the [facility] Emergency Department, this week, for similar complaints. Pt reports she developed a hoarse voice on Tuesday night so she came to this ER on Tuesday. Flu, strep and CXR were negative. States she developed a cough on Tuesday night. States she coughs up clear phlem. States she always has an intermittent dry cough anyway. States she gets seasonal allergies this time of year, but does not take allergy medication. Tried OTC Robitussin without relief. Denies shortness of breath, fever, rhinorrhea.. Historical: - Allergies: 08:06 Sulfa (Sulfonamide Antibiotics); iw - Home Meds: 08:06 alprazolam 2 mg Oral Tb24 1 tab once daily [Active]; amlodipine 10 mg tab 1 tab once iw daily [Active]; carvedilol 6.25 mg Oral tab 1 tab daily [Active]; clonidine HCl 0.3 mg Oral tab 1 tab 2 times per day [Active]; losartan-hydrochlorothiazide 100-12.5 mg Oral tab 1 tab once daily [Active]; [place] 10-325 mg Oral tab 1 tab every 4 hours [Active]; omeprazole 40 mg Oral cpDR 1 cap once daily [Active]; - PMHx: 08:06 Arthritis; Hypertension; Lupus; neuropathy; PUD; ADD/ADHD; iw - Immunization history:: Adult Immunizations unknown. - Social history:: Smoking status: Patient denies any tobacco usage or history of. ROS: 08:12 Constitutional: Negative for fever, chills, and weight loss, Cardiovascular: Negative kb for chest pain, palpitations, and edema, Abdomen/GI: Negative for abdominal pain, nausea, vomiting, diarrhea, and constipation, Back: Negative for injury and pain, MS/Extremity: Negative for injury and deformity, Skin: Negative for injury, rash, and discoloration, Neuro: Negative for headache, weakness, numbness, tingling, and seizure. 08:12 ENT: Positive for hoarseness, Negative for injury or acute deformity, drainage from ear(s), ear pain, foreign body sensation, Gum pain hearing loss, pulling at ears, Teeth pain tinnitus, nasal discharge, rhinorrhea, sinus congestion, sinus pain, sore throat, dental pain, difficulty swallowing, difficulty handling secretions. 08:12 Respiratory: Positive for cough, with clear sputum, Negative for dyspnea on exertion, hemoptysis, orthopnea, pleurisy, shortness of breath, wheezing. Exam: 08:13 Constitutional: This is a well developed, well nourished patient who is awake, alert, kb and in no acute distress. Head/Face: Normocephalic, atraumatic. ENT: Nares patent. No nasal discharge, no septal abnormalities noted. Tympanic membranes are normal and external auditory canals are clear. Oropharynx with no redness, swelling, or masses, exudates, or evidence of obstruction, uvula midline. Mucous membranes moist. Neck: Trachea midline, no thyromegaly or masses palpated, and no cervical lymphadenopathy. Supple, full range of motion without nuchal rigidity, or vertebral point tenderness. No Meningismus. Chest/axilla: Normal chest wall appearance and motion. Nontender with no deformity. No lesions are appreciated. Cardiovascular: Regular rate and rhythm with a normal S1 and S2. No gallops, murmurs, or rubs. Normal PMI, no JVD. No pulse deficits. Respiratory: Lungs have equal breath sounds bilaterally, clear to auscultation and percussion. No rales, rhonchi or wheezes noted. No increased work of breathing, no retractions or nasal flaring. Abdomen/GI: Soft, non-tender, with normal bowel sounds. No distension or tympany. No guarding or rebound. No evidence of tenderness throughout. Skin: Warm, dry with normal turgor. Normal color with no rashes, no lesions, and no evidence of cellulitis. MS/ Extremity: Pulses equal, no cyanosis. Neurovascular intact. Full, normal range of motion. Neuro: Awake and alert, GCS 15, oriented to person, place, time, and situation. Cranial nerves II-XII grossly intact. Motor strength 5/5 in all extremities. Sensory grossly intact. Cerebellar exam normal. Normal gait. Vital Signs: 08:02 BP 161 / 89; Pulse 65; Resp 16; Temp 97.0; Pulse Ox 100% on R/A; Weight 116.57 kg; iw Height 5 ft. 5 in. (165.10 cm); Pain 0/10; 09:25 BP 157 / 86; Pulse 67; Resp 18; Temp 97.2; Pulse Ox 99% on R/A; ph 08:02 Body Mass Index 42.77 (116.57 kg, 165.10 cm) iw MDM: 07:52 Patient medically screened. kb 08:13 Data reviewed: vital signs, nurses notes. Data interpreted: Pulse oximetry: on room air kb is 100 %. Interpretation: normal. Counseling: I had a detailed discussion with the patient and/or guardian regarding: the historical points, exam findings, and any diagnostic results supporting the discharge/admit diagnosis, radiology results, the need for outpatient follow up, a family practitioner, to return to the emergency department if symptoms worsen or persist or if there are any questions or concerns that arise at home. 08:16 Data reviewed: old medical records, Flu, Strep, throat culture and CXR from last visit kb reviewed. All wnl. 03/26 07:58 Order name: Chest Pa And Lat (2 Views) XRAY; Complete Time: 08:43 kb Administered Medications: No medications were administered Disposition: 10:21 Co-signature as Attending Physician, Ezequiel Lua MD I agree with the assessment and kdr plan of care. Disposition: 03/26/20 08:46 Discharged to Home. Impression: Cough. - Condition is Stable. - Discharge Instructions: Cough, Adult, [id number]. - Medication Reconciliation Form, Thank You Letter, Antibiotic Education, Prescription Opioid Use form. - Follow up: Emergency Department; When: As needed; Reason: Worsening of condition. Follow up: Augustin Bishop MD; When: 2 - 3 days; Reason: Recheck today's complaints, Continuance of care, Re-evaluation by your physician. Signatures: Dispatcher [employer] EDMS Deyanira Rowan, ORTHOPEDIC DESIGNER-C ORTHOPEDIC DESIGNER-Ckb Ezequiel Lua MD MD [facility] Comfort Proctor RN RN iw Luz Maria Hyatt RN RN ph Corrections: (The following items were deleted from the chart) 08:13 08:12 Respiratory: Positive for cough, with clear sputum, Negative for dyspnea on kb exertion, hemoptysis, orthopnea, pleurisy, shortness of breath, sputum production, wheezing, kb 09:26 08:46 03/26/2020 08:46 Discharged to Home. Impression: Cough. Condition is Stable. ph Forms are Medication Reconciliation Form, Thank You Letter, Antibiotic Education, Prescription Opioid Use. Follow up: Emergency Department; When: As needed; Reason: Worsening of condition. Follow up: Augustin Bishop; When: 2 - 3 days; Reason: Recheck today's complaints, Continuance of care, Re-evaluation by your physician. kb
--- NOTE | 2020-03-26 08:46 | ER ---
Nurse's Notes [facility] Name: Nhi Santos Age: 69 yrs Sex: Female : 1950 Arrival Date: 03/26/2020 Time: 07:45 Bed 6 Private MD: Augustin Bishop E Diagnosis: Cough Presentation: 03/26 08:02 Chief complaint: Patient states: was here on Tuesday, flu/strep neg, has a chronic cough iw but seem to be worse since Tuesday, denies fever. Coronavirus screen: Proceed with normal triage. Patient reports a cough. Patient denies shortness of breath or difficulty breathing. Patient denies measured and/or subjective temperature greater than 100.4F prior to today's visit. Patient denies travel on a cruise ship or to a country the [facility] currently lists as an affected area. Patient denies contact with known and/or suspected case of COVID-19. Ebola Screen: Patient negative for fever greater than or equal to 101.5 degrees Fahrenheit, and additional compatible Ebola Virus Disease symptoms Patient denies exposure to infectious person. Patient denies travel to an Ebola-affected area in the 21 days before illness onset. No symptoms or risks identified at this time. Initial Sepsis Screen: Does the patient meet any 2 criteria? No. Patient's initial sepsis screen is negative. Does the patient have a suspected source of infection? No. Patient's initial sepsis screen is negative. Risk Assessment: Do you want to hurt yourself or someone else? Patient reports no desire to harm self or others. Onset of symptoms was March 23, 2020. 08:02 Method Of Arrival: Ambulatory iw 08:02 Acuity: TESSY 4 iw Historical: - Allergies: 08:06 Sulfa (Sulfonamide Antibiotics); iw - Home Meds: 08:06 alprazolam 2 mg Oral Tb24 1 tab once daily [Active]; amlodipine 10 mg tab 1 tab once iw daily [Active]; carvedilol 6.25 mg Oral tab 1 tab daily [Active]; clonidine HCl 0.3 mg Oral tab 1 tab 2 times per day [Active]; losartan-hydrochlorothiazide 100-12.5 mg Oral tab 1 tab once daily [Active]; [place] 10-325 mg Oral tab 1 tab every 4 hours [Active]; omeprazole 40 mg Oral cpDR 1 cap once daily [Active]; - PMHx: 08:06 Arthritis; Hypertension; Lupus; neuropathy; PUD; ADD/ADHD; iw - Immunization history:: Adult Immunizations unknown. - Social history:: Smoking status: Patient denies any tobacco usage or history of. Screenin:06 Abuse screen: Denies threats or abuse. Denies injuries from another. Nutritional iw screening: No deficits noted. Tuberculosis screening: No symptoms or risk factors identified. Fall Risk None identified. Assessment: 08:06 General: Appears in no apparent distress. Behavior is calm, cooperative. Pain: Denies iw pain. Neuro: Level of Consciousness is awake, alert, obeys commands, Oriented to person, place, time, situation, Moves all extremities. Full function. Cardiovascular: Patient's skin is warm and dry. Respiratory: Reports cough that is productive, Respiratory effort is even, unlabored, Respiratory pattern is regular, symmetrical, Denies shortness of breath at rest, on exertion, labored breathing, pain with respiration. GI: Patient currently denies diarrhea, nausea, vomiting. Derm: Skin is intact, is healthy with good turgor. Musculoskeletal: Range of motion: intact in all extremities. 09:24 Reassessment: Patient appears in no apparent distress at this time. Patient and/or ph family updated on plan of care and expected duration. Pain level reassessed. Patient is alert, oriented x 3, equal unlabored respirations, skin warm/dry/pink. Pt d/c home. Vital Signs: 08:02 BP 161 / 89; Pulse 65; Resp 16; Temp 97.0; Pulse Ox 100% on R/A; Weight 116.57 kg; iw Height 5 ft. 5 in. (165.10 cm); Pain 0/10; 09:25 BP 157 / 86; Pulse 67; Resp 18; Temp 97.2; Pulse Ox 99% on R/A; ph 08:02 Body Mass Index 42.77 (116.57 kg, 165.10 cm) iw ED Course: 07:45 Patient arrived in ED. as 07:46 Augustin Bishop MD is Private Physician. as 07:47 Deyanira Rowan FNP-C [facility]. kb 07:47 Ezequiel Lua MD is Attending Physician. kb 08:02 Comfort Proctor, LUCIEN is Primary Nurse. iw 08:05 Triage completed. iw 08:06 Arm band placed on. iw 08:35 Chest Pa And Lat (2 Views) XRAY In Process Unspecified. EDMS 08:45 Augustin Bishop MD is Referral Physician. kb 09:24 Patient has correct armband on for positive identification. Bed in low position. Call ph light in reach. Side rails up X 1. 09:24 No provider procedures requiring assistance completed. Patient did not have IV access ph during this emergency room visit. Administered Medications: No medications were administered Outcome: 08:46 Discharge ordered by . kb 09:25 Discharged to home ambulatory. ph 09:25 Condition: good 09:25 Discharge instructions given to patient, Instructed on discharge instructions, follow up and referral plans. Demonstrated understanding of instructions, follow-up care. 09:26 Patient left the ED. ph Signatures: Dispatcher [employer] EDMS Deyanira Rowan, FRONT OFFICE SUPERVISOR-C FRONT OFFICE SUPERVISOR-Rafia Donahue as Comfort Proctor, LUCIEN RN iw Luz Maria Hyatt RN RN ph
[2020-03-26 09:31] VITALS: BP 157/86; TEMP 97.2; O2SAT 99
== END 2020-03-26 09:26 | disposition home or self-care (01) ==
LOC: ER 07:43
DX: R05 Cough (principal); I10 Essential (primary) hypertension; F90.9 Attention-deficit hyperactivity disorder, unspecified type; Z88.2 Allergy status to sulfonamides
CPT/HCPCS: 71046; 99283

== ENCOUNTER 2021-09-15 10:04 | Observation (INO) | payer OTHER ==
[2021-09-15] MEDS ORDERED: ASPIRIN 81 MG CHEWABLE TABLET ONE (11:18)
[2021-09-15] MEDS ORDERED: MORPHINE 4 MG/ML SYR ONE ×2 (11:19→13:52)
--- NOTE | 2021-09-15 11:19 | RAD REPORT ---
EXAM DESCRIPTION: RAD - Chest Single View - 09/15/2021 11:09 am CLINICAL HISTORY: CHEST PAIN Chest pain. COMPARISON: Chest Pa And Lat (2 Views) dated 03/26/2020; Chest Single View dated 03/24/2020; Chest Pa And Lat (2 Views) dated 11/11/2019; Chest Pa And Lat (2 Views) dated 05/14/2019 FINDINGS: Portable technique limits examination quality. [id number] interstitial pulmonary edema suspected. The heart is mildly enlarged in size. No dis placed fractures. IMPRESSION: [id number] CHF pattern.
[2021-09-15 11:58] LABS: Absolute Lymphocytes (CBC) 1.2 K/uL (0.7-4.9); Basophils % 0.6 % (0-1.3); Hematocrit 32.9 % (36.0-45.0); Lymphocytes % 16.3 % (15.3-44.8); MPV 9.2 fL (7.6-11.3); Protime INR 1.01; RBC Red Blood Cell Count 3.71 M/uL (3.86-4.86)
--- NOTE | 2021-09-15 12:07 | RAD REPORT ---
EXAM DESCRIPTION: US - Extremity Venous Uni Ltd - 09/15/2021 11:57 am CLINICAL HISTORY: Pain;Swelling Leg swelling and edema. COMPARISON: Extrem Venous W Compress Len dated 02/27/2018 FINDINGS: Left lower extremity venous system was interrogated with Doppler technique. Normal flow, c ompressibility and augmentation was noted. There is no DVT present. IMPRESSION: No evidence of left lower extremity deep venous thrombosis.
[2021-09-15 12:26] LABS: ALT/SGPT 21 U/L (12-78); AST/SGOT 16 U/L (15-37); Albumin 3.4 g/dL (3.4-5.0); Alkaline Phosphatase 142 U/L (45-117); BUN Blood Urea Nitrogen 19 mg/dL (7-18); Bicarbonate 30 mmol/L (21-32); Bilirubin Direct 0.1 mg/dL (0-0.2); Bilirubin Total 0.3 mg/dL (0.2-1.0); Glucose Level 93 mg/dL (74-106); Magnesium 2.3 mg/dL (1.8-2.4); NT PRO-BNP 239 pg/mL (<125); Potassium 3.8 mmol/L (3.5-5.1); Protein, Total 7.6 g/dL (6.4-8.2); Sodium Level 140 mmol/L (136-145); Troponin (Emerg Dept Use Only) < 0.02 ng/mL (0.0-0.045)
--- NOTE | 2021-09-15 14:12 | ER ---
Nurse's Notes [facility] Name: Nhi Santos Age: 70 yrs Sex: Female : 1950 Arrival Date: 09/15/2021 Time: 10:04 Bed 14 Private MD: Augustin Bishop E Diagnosis: Chest pain, unspecified Presentation: 09/15 10:05 Chief complaint: Patient states: pt states she is having chest pain that radiates to ll3 her shoulder and back. Coronavirus screen: At this time, the client does not indicate any symptoms associated with coronavirus-19. Ebola Screen: No symptoms or risks identified at this time. Initial Sepsis Screen: Does the patient meet any 2 criteria? No. Patient's initial sepsis screen is negative. Does the patient have a suspected source of infection? No. Patient's initial sepsis screen is negative. Risk Assessment: Do you want to hurt yourself or someone else? Patient reports no desire to harm self or others. Onset of symptoms was September 15, 2021 at 06:00. 10:05 Method Of Arrival: Ambulatory ll3 10:05 Acuity: TESSY 3 ll3 Triage Assessment: 10:05 General: Appears distressed, uncomfortable, obese, Behavior is cooperative, appropriate bp for age, anxious. Pain: Complains of pain in chest. EENT: No deficits noted. Neuro: Level of Consciousness is awake, alert, obeys commands, Oriented to Appropriate for age. Cardiovascular: Reports chest pain. Respiratory: Airway is patent Respiratory effort is even, unlabored, Respiratory pattern is regular, symmetrical. GI: No signs and/or symptoms were reported involving the gastrointestinal system. : No signs and/or symptoms were reported regarding the genitourinary system. Derm: No deficits noted. Musculoskeletal: No deficits noted. Historical: - Allergies: 10:10 Sulfa (Sulfonamide Antibiotics); ll3 - Home Meds: 10:10 alprazolam 1 mg oral tab [Active]; amlodipine 10 mg tab 1 tab once daily [Active]; ll3 carvedilol 6.25 mg Oral tab 1 tab daily [Active]; losartan-hydrochlorothiazide 100-12.5 mg Oral tab 1 tab once daily [Active]; [place] 10-325 mg Oral tab 1 tab every 4 hours [Active]; omeprazole 40 mg Oral cpDR 1 cap once daily [Active]; - PMHx: 10:10 Arthritis; Hypertension; Lupus; neuropathy; ll3 - PSHx: 10:10 Cholecystectomy; Appendectomy; hysterectomy; ll3 - Immunization history:: Client reports receiving the 2nd dose of the Covid vaccine, [employer]. - Social history:: Smoking status: Patient denies any tobacco usage or history of. Screenin:15 Abuse screen: Denies threats or abuse. Denies injuries from another. Nutritional bp screening: No deficits noted. Tuberculosis screening: No symptoms or risk factors identified. Fall Risk None identified. Assessment: 10:15 General: SEE TRIAGE NOTE. bp 11:00 Reassessment: No changes from previously documented assessment. Patient and/or family bp updated on plan of care and expected duration. Pain level reassessed. Cardiovascular: Denies chest pain. 11:54 Reassessment: No changes from previously documented assessment. Patient and/or family bp updated on plan of care and expected duration. Pain level reassessed. LABS RECOLLECTED AND SENT. 14:00 Reassessment: PT AGREES TO HOSPITALIZATION, LMP INFORMED. bp 14:47 Reassessment: No changes from previously documented assessment. Patient and/or family bp updated on plan of care and expected duration. Pain level reassessed. HOSPITALIST AT B/S. 16:00 Reassessment: No changes from previously documented assessment. Patient and/or family bp updated on plan of care and expected duration. Pain level reassessed. ADMIT IN PROCESS. 17:13 Reassessment: ADMIT COMPLETE, PT LESTER WITH PCT. bp Vital Signs: 10:05 BP 144 / 86; Pulse 78; Resp 20; Temp 97.2; Pulse Ox 97% ; Weight 121.11 kg; Height 5 ll3 ft. 5 in. (165.10 cm); Pain 5/10; 11:00 BP 156 / 86; Pulse 56; Resp 17; Pulse Ox 100% ; bp 12:00 BP 129 / 93; Pulse 93; Resp 17; Pulse Ox 97% ; bp 13:00 BP 117 / 82; Pulse 94; Resp 16; Pulse Ox 97% ; bp 14:00 BP 108 / 90; Pulse 95; Resp 16; Pulse Ox 96% ; bp 16:00 BP 140 / 70; Pulse 55; Resp 16; Pulse Ox 98% ; bp 17:00 BP 135 / 73; Pulse 52; Resp 16; Pulse Ox 96% ; bp 10:05 Body Mass Index 44.43 (121.11 kg, 165.10 cm) ll3 ED Course: 10:04 Patient arrived in ED. as 10:04 Augustin Bishop MD is Private Physician. as 10:10 Triage completed. ll3 10:14 Arm band placed on. ll3 10:15 Patient has correct armband on for positive identification. Bed in low position. Call bp light in reach. Side rails up X2. Adult w/ patient. hall monitor on. Pulse ox on. NIBP on. 10:15 Patient maintains SpO2 saturation greater than 95% on room air. bp 10:42 Ze Whiteside PA is PHCP. cp 10:42 Brendon Alcantar MD is Attending Physician. cp 10:42 Jimbo Stewart, LUCIEN is Primary Nurse. bp 11:09 XRAY Chest (1 view) In Process Unspecified. EDMS 11:40 Inserted saline lock: 22 gauge in left antecubital area, using aseptic technique. Blood bp collected. 11:54 US Extremity Venous Unilateral Ltd Sent. bp 11:58 US Extremity Venous Unilateral Ltd In Process Unspecified. EDMS 14:10 Aj Zhao MD is Hospitalizing Provider. cp 17:12 No provider procedures requiring assistance completed. Patient admitted, IV remains in bp place. Administered Medications: 11:40 Drug: Aspirin Chewable Tablet 324 mg Route: PO; bp 13:23 Follow up: Response: No adverse reaction bp 11:40 Drug: morphine 4 mg Route: IVP; Site: left antecubital; bp 13:23 Follow up: Response: Pain is decreased bp 13:50 Drug: morphine 4 mg Route: IVP; Site: left antecubital; bp 14:16 Follow up: Response: No adverse reaction; Pain is decreased bp Outcome: 14:11 Decision to Hospitalize by Provider. cp 17:07 Patient left the ED. iw 17:12 Admitted to Med/surg accompanied by tech, via wheelchair, Report called to UGO MCGRAW bp 17:12 Condition: stable 17:12 Instructed on the need for admit. Signatures: Dispatcher [employer] EDMS Rafia Leary Irene RN RN iw Ze Whiteside PA PA cp Jimbo Stewart, LUCIEN RN bp Aggie Diaz RN RN ll3 Corrections: (The following items were deleted from the chart) 10:10 PMHx: PUD; ll3 ll3 10:10 PSHx: Colectomy; ll3 ll3
--- NOTE | 2021-09-15 14:12 | EDPHYS ---
Physician Documentation [facility] Name: Nhi Santos Age: 70 yrs Sex: Female : 1950 Arrival Date: 09/15/2021 Time: 10:04 Bed 14 Private MD: Augustin Bishop E ED Physician Brendon Alcantar HPI: 09/15 10:30 This 70 yrs old Black Female presents to ER via Ambulatory with complaints of Chest cp Pain. 10:30 The patient or guardian reports chest pain that is located primarily in the anterior cp chest wall, left. 10:30 Onset: this morning. The pain radiates to the left arm, the left shoulder. Associated cp signs and symptoms: Pertinent positives: lower extremity pain, lower extremity swelling, shortness of breath, Pertinent negatives: abdominal pain, palpitations, syncope, vomiting. The chest pain is described as sharp. Duration: The patient or guardian reports a single episode, that is still ongoing, and unchanged. Severity of pain: in the emergency department the pain is a 5 / 10. Historical: - Allergies: 10:10 Sulfa (Sulfonamide Antibiotics); ll3 - Home Meds: 10:10 alprazolam 1 mg oral tab [Active]; amlodipine 10 mg tab 1 tab once daily [Active]; ll3 carvedilol 6.25 mg Oral tab 1 tab daily [Active]; losartan-hydrochlorothiazide 100-12.5 mg Oral tab 1 tab once daily [Active]; Eckerman 10-325 mg Oral tab 1 tab every 4 hours [Active]; omeprazole 40 mg Oral cpDR 1 cap once daily [Active]; - PMHx: 10:10 Arthritis; Hypertension; Lupus; neuropathy; ll3 - PSHx: 10:10 Cholecystectomy; Appendectomy; hysterectomy; ll3 - Immunization history:: Client reports receiving the 2nd dose of the Covid vaccine, pfizer. - Social history:: Smoking status: Patient denies any tobacco usage or history of. ROS: 10:35 Constitutional: Negative for body aches, chills, fever, poor PO intake. cp 10:35 Eyes: Negative for injury, pain, redness, and discharge. cp 10:35 ENT: Negative for ear pain, sore throat, difficulty swallowing, difficulty handling secretions. 10:35 Cardiovascular: Positive for chest pain, of the left side of chest, edema, Negative for palpitations. 10:35 Respiratory: Positive for shortness of breath, Negative for cough, wheezing. 10:35 Abdomen/GI: Negative for abdominal pain, nausea, vomiting, and diarrhea. 10:35 MS/extremity: Positive for pain, of the left arm and left shoulder, Negative for injury or acute deformity, decreased range of motion, paresthesias. 10:35 Skin: Negative for cellulitis, rash. 10:35 Neuro: Negative for altered mental status, headache, syncope, weakness. 10:35 All other systems are negative. Exam: 10:50 Constitutional: The patient appears in no acute distress, alert, awake, cp non-diaphoretic, non-toxic, well developed, well nourished, obese. 10:50 Head/Face: Normocephalic, atraumatic. cp 10:50 Eyes: Periorbital structures: appear normal, Conjunctiva: normal, no exudate, no injection, Sclera: no appreciated abnormality, Lids and lashes: appear normal, bilaterally. 10:50 ENT: External ear(s): are unremarkable, Nose: is normal, Mouth: Lips: moist, Oral mucosa: moist, Posterior pharynx: Airway: no evidence of obstruction, patent. 10:50 Neck: ROM/movement: is normal, is supple, without pain, no range of motions limitations, no nuchal rigidity. 10:50 Chest/axilla: Inspection: normal. 10:50 Cardiovascular: Rate: normal, Rhythm: regular, Edema: ankle edema, that is mild, JVD: is not appreciated. 10:50 Respiratory: the patient does not display signs of respiratory distress, Respirations: normal, no use of accessory muscles, no retractions, labored breathing, is not present, Breath sounds: are clear throughout, no decreased breath sounds, no stridor, no wheezing. 10:50 Abdomen/GI: Inspection: obese Bowel sounds: active, all quadrants, Palpation: abdomen is soft and non-tender, in all quadrants. 10:50 Musculoskeletal/extremity: DVT Exam: no erythema, no increased warmth, pain, that is mild, of the left leg, swelling, of the left leg, tenderness, that is mild, of the left leg, positive Homans' sign noted on exam. 10:50 Neuro: Orientation: to person, place \T\ time. Mentation: is normal, Motor: moves all fours, strength is normal, Sensation: is normal. Vital Signs: 10:05 BP 144 / 86; Pulse 78; Resp 20; Temp 97.2; Pulse Ox 97% ; Weight 121.11 kg; Height 5 ll3 ft. 5 in. (165.10 cm); Pain 5/10; 11:00 BP 156 / 86; Pulse 56; Resp 17; Pulse Ox 100% ; bp 12:00 BP 129 / 93; Pulse 93; Resp 17; Pulse Ox 97% ; bp 13:00 BP 117 / 82; Pulse 94; Resp 16; Pulse Ox 97% ; bp 14:00 BP 108 / 90; Pulse 95; Resp 16; Pulse Ox 96% ; bp 16:00 BP 140 / 70; Pulse 55; Resp 16; Pulse Ox 98% ; bp 17:00 BP 135 / 73; Pulse 52; Resp 16; Pulse Ox 96% ; bp 10:05 Body Mass Index 44.43 (121.11 kg, 165.10 cm) ll3 MDM: 10:42 Patient medically screened. cp 13:45 Data reviewed: vital signs, nurses notes, lab test result(s), EKG, radiologic studies, cp plain films. 13:45 Test interpretation: by ED physician or midlevel provider: plain radiologic studies. cp Physician consultation: Aj Zhao MD was called at 13:40, was contacted at 13:40, regarding admission, to the telemetry unit. patient's condition, and will see patient in ED, shortly. ED course: Patient reports return of chest pain. Will admit for observation. 09/15 10:19 Order name: Basic Metabolic Panel; Complete Time: 12:46 iw 09/15 12:46 Interpretation: Normal except: BUN 19; GFR 62. cp 09/15 10:19 Order name: CBC with Diff; Complete Time: 12:46 iw 09/15 12:47 Interpretation: Normal except: RBC 3.71; HGB 11.0; HCT 32.9. cp 09/15 10:19 Order name: LFT's; Complete Time: 12:46 iw 09/15 10:19 Order name: Magnesium; Complete Time: 12:46 iw 09/15 10:19 Order name: NT PRO-BNP; Complete Time: 12:46 iw 09/15 10:19 Order name: PT-INR; Complete Time: 12:46 iw 09/15 10:19 Order name: Troponin (emerg Dept Use Only); Complete Time: 12:46 iw 09/15 12:47 Interpretation: Within normal limits: TROPED < 0.02. 09/15 13:00 Order name: SARS-COV-2 RT PCR EDUT 09/15 15:15 Order name: Troponin I EDUT 09/15 15:15 Order name: Troponin I EDUT 09/15 15:15 Order name: Troponin I EDUT 09/15 10:19 Order name: XRAY Chest (1 view); Complete Time: 11:54 09/15 11:55 Interpretation: Report review. 09/15 10:19 Order name: EKG; Complete Time: 10:19 iw 09/15 10:19 Order name: Cardiac monitoring; Complete Time: 10:43 09/15 10:19 Order name: EKG - Nurse/Tech; Complete Time: 10:43 09/15 10:19 Order name: IV Saline Lock; Complete Time: 11:14 09/15 10:19 Order name: Labs collected and sent; Complete Time: 11:14 09/15 10:19 Order name: O2 Per Protocol; Complete Time: 10:43 09/15 10:19 Order name: O2 Sat Monitoring; Complete Time: 10:43 09/15 11:04 Order name: US Extremity Venous Unilateral Ltd; Complete Time: 12:46 09/15 12:47 Interpretation: Report reviewed. 09/15 11:14 Order name: Labs - recollect needed: recollect blue and lavender tube; Complete Time: iw 11:53 09/15 11:30 Order name: Labs - recollect needed: recollect green top; Complete Time: 13:23 09/15 15:10 Order name: CONS Physician Consult EDMS Administered Medications: 11:40 Drug: Aspirin Chewable Tablet 324 mg Route: PO; bp 13:23 Follow up: Response: No adverse reaction bp 11:40 Drug: morphine 4 mg Route: IVP; Site: left antecubital; bp 13:23 Follow up: Response: Pain is decreased bp 13:50 Drug: morphine 4 mg Route: IVP; Site: left antecubital; bp 14:16 Follow up: Response: No adverse reaction; Pain is decreased bp Disposition Summary: 09/15/21 14:11 Hospitalization Ordered Hospitalization Status: Observation cp Provider: Aj Zhao cp Location: Telemetry/MedSurg (observation) cp Condition: Stable cp Problem: new cp Symptoms: have improved cp Bed/Room Type: Standard cp Room Assignment: 210(09/15/21 16:08) dw Diagnosis - Chest pain, unspecified cp Forms: - Medication Reconciliation Form cp - SBAR form cp Addendum: 09/18/2021 19:04 Co-signature as Attending Physician, Brendon Alcantar MD. p kl Signatures: Dispatcher [employer] EDMS Pinky Tian Diana, RN RN dw Lam, Pin, MD MD pkComfort Velazquez RN RN iw Ze Whiteside PA PA cp Jimbo Stewart, RN RN bp Aggie Diaz RN RN ll3 Corrections: (The following items were deleted from the chart) 09/15 10:14 10:10 PMHx: PUD; ll3 ll3 10:14 10:10 PSHx: Colectomy; ll3 ll3 13:00 11:56 CORONAVIRUS+MR.LAB.BRZ ordered. EDMS EDMS 15:12 13:24 Urine Culture+BA.LAB.BRZ ordered. EDMS EDMS 15:12 13:24 UA MICROSCOPIC+U.LAB.BRZ ordered. EDMS EDMS 16:08 14:11 cp dw
--- NOTE | 2021-09-15 15:13 | P.HP ---
Certification for Inpatient Patient admitted to: Observation With expected LOS: <2 Midnights Practitioner: I am a practitioner with admitting privileges, knowledge of patient current condition, hospital course, and medical plan of care. Services: Services provided to patient in accordance with Admission requirements found in Title 42 Section 412.3 of the Code of Federal Regulations Patient History Date of Service: 09/15/21 Reason for admission: Chest pain, CHF exacerbation History of Present Illness: 69yo F, PMH: CAD, HTN, CHF (unknown type), Lupus, Neuropathy, PUD Patient presents to ED with left-sided chest pain, radiating to left arm. Pain initially began 2 days ago, states she was watching TV after dinner when it began. She reports to 3 other episodes since then. It was severe last night and this morning so she presented to the ER. She reports some increased fatigue, shortness of breath, orthopnea, lower extremity edema over the last 4-6 weeks. She is prescribed Lasix and hydrochlorothiazide, but has only been taking these medications every other day or so. She has not had pain like this before/as severe as this before. Patient reports history of [place] in 2010, states she had a cardiac cath but no other intervention (no stent/no bypass). She saw her employee relations consultant March of this year, had an echocardiogram and a stress test. She was told they were abnormal due to "leaky valves", and her employee relations consultant had her wear a monitor for 1 week. She denies being told of any wall motion abnormalities or needing any further intervention. She is unsure but thinks she was told she had A. fib for the results of the heart monitor. EKG in the ED without acute ischemic changes, initial troponin negative, vitals okay. Mildly elevated BNP, chest x-ray with pulmonary edema. ER provider wishes to admit patient for further evaluation/treatment. Allergies Sulfa (Sulfonamide Antibiotics) [Sulfa(Sulfonamide Antibiotics)] Allergy (Severe, Verified 02/06/12 17:36) Anaphylaxis Home Medications: Amlodipine Besylate [Norvasc] 10 mg PO DAILY 02/07/12 Clonidine HCl 0.3 mg PO BID 02/07/12 Hydrocodone/Acetaminophen [Lortab 10-500 Tablet] 1 each PO Q6HP PRN 02/07/12 Pravastatin Sodium 20 mg PO DAILY 04/02/12 Verapamil HCl [Calan Sr] 120 mg PO BID #60 tablet.er 02/09/12 Phenelzine Sulfate [Nardil] 10 mg PO PRN 09/18/12 Sotalol HCl [Sotalol] 40 mg PO BID 09/18/12 Albuterol Sulfate [Proair Hfa] 1 puff IH Q4HP PRN #0 hfa.aer.ad 09/19/12 Azithromycin [Zithromax] 250 mg PO DAILY #0 tablet 09/19/12 Hydrocodone/Chlorphen Polis [Tussionex Oral Susp*] 5 ml FT BIDP PRN #0 osyr 09/19/12 Pantoprazole [Protonix Tab*] 40 mg PO DAILY #0 tab 09/19/12 Prednisone 20 mg PO DAILY #0 tablet 09/19/12 - Past Medical/Surgical History Diabetic: No -: CHF, unknown type -: "[place]" -: Lupus -: HTN -: Neuropathy -: PUD -: Morbid obesity Past Surgical History: Patient denies surgical history - Family History Family History: Reviewed- Non-Contributory (She is unsure of her family history) - Social History Smoking Status: Never smoker Alcohol use: No CD- Drugs: No Caffeine use: Yes Review of Systems 10-point ROS is otherwise unremarkable Physical Examination - Physical Exam General: Alert, In no apparent distress, Oriented x3 HEENT: Mucous membr. moist/pink, Sclerae nonicteric Neck: Supple Respiratory: Diminished (at bases bilaterally), Other (Nonlabored respirations on room air) Cardiovascular: Regular rate/rhythm, Normal S1 S2, Edema (1+ edema bilaterally to thighs) Gastrointestinal: Soft and benign, Non-distended, No tenderness Musculoskeletal: No erythema, No tenderness Integumentary: No rashes, No significant lesion Neurological: Normal speech, Normal strength at 5/5 x4 extr - Studies Laboratory Data (last 24 hrs) 09/15/21 11:40: PT 11.6, INR 1.01 09/15/21 11:40: WBC 7.40, Hgb 11.0 L, Hct 32.9 L, Plt Count 275 09/15/21 11:40: Sodium 140, Potassium 3.8, BUN 19 H, Creatinine 1.07, Glucose 93, Magnesium 2.3, Total Bilirubin 0.3, AST 16, ALT 21, Alkaline Phosphatase 142 H Assessment and Plan - Advance Directives Does patient have a Living Will: No Does patient have a Durable POA for Healthcare: No Physician Review Additional Text: Problem list Chest pain Acute on chronic CHF exacerbation. Unknown type possible h/o afib Hypertension Lupus Chronic neuropathy PUD Initial troponin EKG okay, will trend troponins Aspirin, statin, beta-jazzy Cardiology consulted Possible cardiac origin, however had stress and echo done earlier this year, states only commented on leaky valves Patient also reports worsening of acid reflux symptoms lately, but this pain does not feel like that, will treat with pantoprazole She does report a history of EGD a few years ago and was told she had polyps removed Reports history of A. fib, but only takes aspirin, states her employee relations consultant never discussed anything further. Patient appears to be in acute on chronic CHF exacerbation, echo ordered IV Lasix 40 mg twice daily for now Confirm other home medications to restart as appropriate. VTE: Lovenox Code: Full Dispo: Anticipate DC home in 24-48 hours Time Spent Managing Pts Care (In Minutes): 60
[2021-09-15] MEDS ORDERED: ONDANSETRON 4 MG/2 ML VIAL IV PRN (16:44)
[2021-09-15 17:26] LABS: Thyroid Stimulating Hormone 1.49 uIU/mL (0.360-3.740)
[2021-09-15] MEDS: METOPROLOL TAR 25 MG TAB PO SCH (17:27)
[2021-09-15 17:28] VITALS: BMI 44.4
[2021-09-15] MEDS: ENOXAPARIN 40 MG/0.4 ML SQ SCH (17:30)
[2021-09-15] MEDS: FUROSEMIDE 40 MG/4 ML VIAL IV SCH (17:30)
[2021-09-15] MEDS ORDERED: POTASSIUM CL SA 10 MEQ TAB PO ONE (18:00)
[2021-09-15 18:56] LABS: Urine Appearance CLEAR (Clear); Urine Bilirubin NEGATIVE (Negative); Urine Blood NEGATIVE (Negative); Urine Color YELLOW (Yellow); Urine Glucose NEGATIVE (Negative); Urine Protein NEGATIVE (Negative); Urine Specific Gravity <=1.005 (1.005-1.030); Urine Urobilinogen 0.2 mg/dL (0.2-1.0); Urine pH 5.5 (5.0-7.0)
[2021-09-15 19:00] LABS: Urine Microscopic Reflex NO UMIC
[2021-09-15] MEDS: MORPHINE 2 MG/ML SYR IV PRN (20:56)
[2021-09-15] MEDS ORDERED: ATORVASTATIN 20 MG TAB PO SCH (21:00)
[2021-09-16] MEDS: MORPHINE 2 MG/ML SYR IV PRN (02:43)
[2021-09-16] MEDS: METOPROLOL TAR 25 MG TAB PO SCH (06:00)
[2021-09-16] MEDS ORDERED: PANTOPRAZOLE 40MG TABLET PO SCH (06:30)
[2021-09-16 06:49] LABS: Absolute Lymphocytes (CBC) 1.1 K/uL (0.7-4.9); Basophils % 0.6 % (0-1.3); Hematocrit 33.6 % (36.0-45.0); Lymphocytes % 14.1 % (15.3-44.8); MPV 9.3 fL (7.6-11.3); RBC Red Blood Cell Count 3.76 M/uL (3.86-4.86)
[2021-09-16 07:13] LABS: Albumin 3.3 g/dL (3.4-5.0); Bilirubin Total 0.4 mg/dL (0.2-1.0); Magnesium 2.4 mg/dL (1.8-2.4); Potassium 3.6 mmol/L (3.5-5.1); Protein, Total 7.5 g/dL (6.4-8.2)
--- NOTE | 2021-09-16 07:55 | RAD REPORT ---
EXAM DESCRIPTION: RAD - Chest Single View - 09/16/2021 7:49 am CLINICAL HISTORY: f/u pulm edema COMPARISON: Chest Single View dated 09/15/2021; Chest Pa And Lat (2 Views) dated 03/26/2020; Chest Sin gle View dated 03/24/2020; Chest Pa And Lat (2 Views) dated 11/11/2019 FINDINGS: Lines: None. Lungs: No evidence of edema or pneumonia. Pleural: No significant pleural effusions or pneumothorax. Cardiac: Mild cardiomegaly Bones: No acute fractures. Other: IMPRESSION: No acute cardiopulmonary disease.
[2021-09-16] MEDS ORDERED: predniSONE 20 MG TAB PO SCH (09:00)
[2021-09-16] MEDS ORDERED: ASPIRIN EC 81 MG TAB PO SCH (09:00)
[2021-09-16] MEDS: ENOXAPARIN 40 MG/0.4 ML SQ SCH (09:15)
[2021-09-16] MEDS: FUROSEMIDE 40 MG/4 ML VIAL IV SCH (09:21)
[2021-09-16 09:28] VITALS: O2SAT 99
--- NOTE | 2021-09-16 11:22 | EKG ---
Test Date: 2021-09-15 Test Time: 10:25:32 Refuge Manager: JACQUELINE MEASUREMENT RESULTS: Intervals: Rate: 61 WI: 194 QRSD: 166 QT: 478 QTc: 481 [place]: P: 43 WI: 194 QRS: -48 T: 28 INTERPRETIVE STATEMENTS: Normal sinus rhythm Right bundle branch block Left anterior fascicular block Bifascicular block Minimal voltage criteria for LVH, may be normal variant Abnormal ECG Compared to ECG 01/03/2018 10:55:02 Right bundle-branch block now present Left anterior fascicular block now present Bifascicular block now present Sinus bradycardia no longer present T-wave abnormality no longer present Electronically Signed On 09-16-21 11:20:29 BARREL RIFLER by Manjeet Fink
--- NOTE | 2021-09-16 11:34 | ECHO ---
HEIGHT: 5 ft 5 in WEIGHT: 267 lb 0 oz DATE OF STUDY: 09/16/[address]: Aj Zhao MD 2-DIMENSIONAL: YES M.MODE: YES DOPPLER: YES COLOR FLOW: YES TDS: NO PORTABLE: NO DEFINITY: NO BUBBLE STUDY: NO DIAGNOSIS: EVALUATE FUNCTION, CHEST PAIN CARDIAC HISTORY: CATHERIZATION: NO SURGERY: NO PROSTHETIC VALVE: NO PACEMAKER: NO MEASUREMENTS (cm) DIASTOLIC (NORMALS) SYSTOLIC (NORMALS) IVSd 1.5 (0.6-1.2) LA Diam 4.2 (1.9-4.0) LVEF 83% LVIDd 4.3 (3.5-5.7) LVIDs 2.1 (2.0-3.5) %FS 52% LVPWd 1.5 (0.6-1.2) Ao Diam 2.9 (2.0-3.7) 2 DIMENSIONAL ASSESSMENT: RIGHT ATRIUM: NORMAL LEFT ATRIUM: DILATED RIGHT VENTRICLE: NORMAL LEFT VENTRICLE: LEFT VENTRICULAR HYPERTROPHY TRICUSPID VALVE: NORMAL MITRAL VALVE: MITRAL ANNULAR CALCIFICATION PULMONIC VALVE: NORMAL AORTIC VALVE: SCLEROSIS PERICARDIAL EFFUSION: NONE AORTIC ROOT: NORMAL LEFT VENTRICULAR WALL MOTION: NORMAL. DOPPLER/COLOR FLOW: MILD MITRAL, AORTIC, TRICUSPID REGURGITATION. COMMENTS: LEFT VENTRICULAR HYPERTROPHY - CONCENTRIC. MILD AORTIC, TRICUSPID, MITRAL REGURGITATION. NORMAL EJECTION FRACTION. MITRAL ANNULAR CALCIFICATION. AORTIC SCLEROSIS. TECHNOLOGIST: PARVIZ GAONA
[2021-09-16] MEDS ORDERED: POTASSIUM CL SA 10 MEQ TAB PO ONE (12:00)
[2021-09-16 12:55] VITALS: BP 137/76; TEMP 97.3
--- NOTE | 2021-09-16 14:09 | P.DS ---
Admission Date: 09/15/21 Discharge Date: 09/16/21 Disposition: ROUTINE DISCHARGE Discharge Condition: GOOD Reason for Admission: Chest pain, CHF exacerbation Consultations: Cardiology - Dr. Fink Procedures: CXR (09/15): FINDINGS: Portable technique limits examination quality. Sthp-kg-latgwzim interstitial pulmonary edema suspected. The heart is mildly enlarged in size. No displaced fractures. IMPRESSION: Uqkv-ob-[id number] CHF pattern. Lower extremity venous Doppler (09/15): FINDINGS: Left lower extremity venous system was interrogated with Doppler technique. Normal flow, compressibility and augmentation was noted. There is no DVT present. IMPRESSION: No evidence of left lower extremity deep venous thrombosis. CXR (09/16): IMPRESSION: No acute cardiopulmonary disease. Echocardiogram (09/16): LV hypertrophyconcentric Mild aortic, tricuspid, mitral regurgitation Normal ejection fraction (80%) Mitral annular calcification. Aortic sclerosis. Dilated left atrium Problem list Chest pain Acute on chronic diastolic CHF exacerbation (HFpEF) possible h/o afib Hypertension Lupus Chronic neuropathy PUD Brief History of Present Illness: 69yo F, PMH: CAD, HTN, CHF (unknown type), Lupus, Neuropathy, PUD Patient presents to ED with left-sided chest pain, radiating to left arm. Pain initially began 2 days ago, states she was watching TV after dinner when it began. She reports to 3 other episodes since then. It was severe last night and this morning so she presented to the ER. She reports some increased fatigue, shortness of breath, orthopnea, lower extremity edema over the last 4-6 weeks. She is prescribed Lasix and hydrochlorothiazide, but has only been taking these medications every other day or so. She has not had pain like this before/as severe as this before. Patient reports history of [place] in [place], states she had a cardiac cath but no other intervention (no stent/no bypass). She saw her food service lead March of this year, had an echocardiogram and a stress test. She was told they were abnormal due to "leaky valves", and her food service lead had her wear a monitor for 1 week. She denies being told of any wall motion abnormalities or needing any further intervention. She is unsure but thinks she was told she had A. fib for the results of the heart monitor. EKG in the ED without acute ischemic changes, initial troponin negative, vitals okay. Mildly elevated BNP, chest x-ray with pulmonary edema. ER provider wishes to admit patient for further evaluation/treatment. Hospital Course: Cardiac troponins were trended and remained negative, EKG without any new/acute ischemic findings. On exam, patient's presentation consistent with acute CHF exacerbation. Cardiology was consulted and recommended no further inpatient evaluation. An echocardiogram was obtained without any acute findings. She had improvement of her breathing and ambulation with IV diuresis. She reported noncompliance with her Lasix at home, taking it every other day. She was advised on the importance of medication compliance and the use of her diuretic. On exam she did have left upper chest tenderness to palpation in the shoulder area as well, which recreated her pain. Work-up during her hospitalization did not reveal any acute infectious process, no pneumonia, no NV, no other emergent findings. Some patient may be having some costochondritis or possible myositis/myalgia related to her lupus. She was recently increased on her prednisone. She is advised to continue her medications, follow-up with your PCP, food service lead, and pest control pilot. Vital Signs/Physical Exam: Physical exam General: Alert, In no apparent distress, Oriented x3 HEENT: Mucous membr. moist/pink, Sclerae nonicteric Respiratory: Diminished (at bases bilaterally), Other (Nonlabored respirations on room air) Cardiovascular: Regular rate/rhythm, Normal S1 S2, Edema (1+ edema bilaterally to knees) Gastrointestinal: Soft and benign, Non-distended, No tenderness Musculoskeletal: Tenderness to palpation left upper chest and shoulder area, no erythematous, no rash Integumentary: No rashes, No significant lesion Neurological: Normal speech, Normal strength at 5/5 x4 extr Temp Pulse Resp BP Pulse Ox 97.3 F 59 20 137/76 95 09/16/21 12:00 09/16/21 12:00 09/16/21 12:00 09/16/21 12:00 09/16/21 12:00 Laboratory Data at Discharge: WBC 7.70 K/uL (4.3-10.9) 09/16/21 06:30 Hgb 11.2 g/dL (12.0-15.0) L 09/16/21 06:30 Hct 33.6 % (36.0-45.0) L 09/16/21 06:30 Plt Count 272 K/uL (152-406) 09/16/21 06:30 PT 11.6 SECONDS (9.5-12.5) 09/15/21 11:40 INR 1.01 09/15/21 11:40 Sodium 141 mmol/L (136-145) 09/16/21 06:30 Potassium 3.6 mmol/L (3.5-5.1) 09/16/21 06:30 BUN 16 mg/dL (7-18) 09/16/21 06:30 Creatinine 0.92 mg/dL (0.55-1.3) 09/16/21 06:30 Glucose 104 mg/dL (74-106) 09/16/21 06:30 Magnesium 2.4 mg/dL (1.8-2.4) 09/16/21 06:30 Total Bilirubin 0.4 mg/dL (0.2-1.0) 09/16/21 06:30 AST 49 U/L (15-37) H 09/16/21 06:30 ALT 46 U/L (12-78) 09/16/21 06:30 Alkaline Phosphatase 164 U/L (45-117) H 09/16/21 06:30 Troponin I < 0.02 ng/mL (0.0-0.045) 09/16/21 00:20 Triglycerides 138 mg/dL (<150) 09/16/21 06:30 Cholesterol 184 mg/dL (<200) 09/16/21 06:30 HDL Cholesterol 49 mg/dL (40-60) 09/16/21 06:30 Cholesterol/HDL Ratio 3.76 09/16/21 06:30 Home Medications: Amlodipine Besylate [Norvasc] 10 mg PO DAILY 02/07/12 Prednisone 20 mg PO DAILY #0 tablet 09/19/12 Furosemide [Lasix*] 1 tab PO BID 09/15/21 Hydrocodone Bit/Acetaminophen [Hydrocodon-Acetaminoph 7.5-325] 1 tab PO TID PRN 09/15/21 Losartan/Hydrochlorothiazide [Losartan-Hctz 100-12.5 mg Tab] 1 tab PO DAILY 09/15/21 Omeprazole 1 tab PO DAILY 09/15/21 Sertraline [Zoloft*] 1 tab PO BEDTIME 09/15/21 carvediloL [Carvedilol] 1 tab PO DAILY 09/15/21 Diet: AHA Activity: Ad joshua Followup: Trenton Smart PA [Primary Care Provider] - Manjeet Fink MD [ACTIVE - CAN ADMIT] - Time spent managing pt's care (in minutes): 45
[2021-09-16] MEDS ORDERED: SERTRALINE HCL 50 MG TAB PO SCH (21:00)
--- NOTE | 2021-09-18 20:45 | EKG ---
Test Date: 2021-09-16 Test Time: 02:52:28 Hand Printed Circuit Board Assembler: RT-O MEASUREMENT RESULTS: Intervals: Rate: 66 MA: 192 QRSD: 162 QT: 468 QTc: 490 [place]: P: 50 MA: 192 QRS: -52 T: 34 INTERPRETIVE STATEMENTS: Normal sinus rhythm Right bundle branch block Left anterior fascicular block Bifascicular block Minimal voltage criteria for LVH, may be normal variant Septal infarct, age undetermined Abnormal ECG Compared to ECG 09/15/2021 10:25:32 Myocardial infarct finding now present Bifascicular block still present Electronically Signed On 09-18-21 20:36:01 VETERINARY PHYSIOLOGIST by Manjeet Fink
--- OUTSIDE RECORDS SUMMARY | 2021-09-19 18:00 | XMS REPORT | Continuity of Care Document ---
:1950 Author Organization [facility] t Address [address] [place] [address] Care Team Providers Name Role Phone Willy Dhillon Attending Clinician Willy BRANDON Attending Clinician Unavailable Frank DO Attending Clinician FRANK Attending Clinician Unavailable Payers Payer Name Policy Type Policy Number Effective Date Expiration Date S ource Problems Condition Condition Condition Status Onset Resolution Last Treating Co mments Source Name Details Category Date Date Treatment Clinician Date No known No known Disease Unive rs active active ity of problems problems [facility] Allergies, Adverse Reactions, Alerts Allergy Allergy Status Severity Reaction(s) Onset Inactive Treating Comm ents Source Name Type Date Date Clinician Sulfa Propensi Active Unknown - Unive rs (Sulfona ty to See comments 8-19 it y of mide adverse 00:00: [place] Antibiot reaction 00 Medica l ics) s Branch SULFA Drug Active Unknown-Cmnt 2018-0 Univ ers (SULFONA Class 8-19 ity of MIDE 00:00: [place] ANTIBIOT 00 Medical ICS) Branch Social History Social Habit Start Date Stop Date Quantity Comments Source History SDAR University o f Alcohol Binge [place] [facility] Sex Assigned At [facility] [place] [facility] Exposure to Yes University of SARS-CoV-2 [place] [facility] (event) Branch History [facility] University o f Alcohol Std [place] [facility] Drinks [facility] Tobacco use and 2020-07-30 2020-07-30 Never used Universit y of exposure 00:00:00 00:00:00 [facility] Branch Alcohol intake 2020-07-30 2020-07-30 Lifetime University of 00:00:00 00:00:00 non-drinker [place] [facility] (finding) Branch History SDOH 2019-06-25 2019-06-25 1 University o f Alcohol Frequency 00:00:00 00:00:00 [facility] Smoking Status Start Date Stop Date Source Never smoker [facility] Branch Medications Ordered Filled Start Stop Current Ordering Indication Dosage Frequency Signature Comments Components Source Medication Medication Date Date Medication? Clinician (SIG) Name Name naproxen 2019-11- No 500mg 500 mg, Univ ers (NAPROSYN) 0-04 10-04 Oral, ity of tablet 500 18:30: 17:25 ONCE, 1 Oleksandr as mg 00 :00 dose, [facility] 08/10/20 at Branch 1330, Routine methocarbam 2019-11- No 1000mg 1,000 mg, Univers oL 0-04 10-04 Oral, ity of (ROBAXIN) 18:30: 17:24 ONCE, 1 [place] tablet 00 :00 dose, [facility] 1,000 mg 08/10/[address] [facility] h 1330, Routine dexamethaso 2019-11- No 10mg 10 mg, Uni vers ne 0-04 10-04 Intramuscu ity of (DECADRON 18:00: 18:00 lar, ONCE, [place] PHOSPHATE) 00 :00 1 dose, Medica l injection [facility] 10 mg 08/10/20 at 1300, STAT methocarbam 2019-11 Yes [id number] 750mg Take 1 Univers oL 0-04 tablet by ity of (ROBAXIN-75 00:00: mouth [place] 0) 750 mg 00 every 8 Medical tablet (eight) Branch hours as needed for Pain (scale 4-6) for up to 15 doses. naproxen 2019-11 Yes [id number] 500mg Take 1 Un rom[place] 500 mg EC 0-04 tablet by ity o f tablet 00:00: mouth [place] 00 every 12 Medical (twelve) Branch hours as needed for Pain (scale 4-6) for up to 16 doses. predniSONE 2019-11 2020- No [id number] 40mg Take 2 Univers 20 mg 0-04 10-10 tablets by ity of tablet 00:00: 04:59 mouth [place] 00 :00 daily for Medical 5 days. Branch benzonatate Yes [id number] 100mg Take 1 Univers 100 mg 9-23 capsule by ity of capsule 00:00: mouth 3 [place] 00 (three) Medical times Branch daily as needed for Cough. chlorphenir 2020-0 Yes [id number] 4mg Take 1 Univers amine 4 mg 9-23 tablet by ity of tablet 00:00: mouth [place] 00 every 6 Medical (six) Branch hours as needed for Allergies or Runny nose. multivitami 2020-0 Yes [id number] 1{capsu Take 1 Univers n capsule 9-23 le} capsule by ity of 00:00: mouth [place] 00 daily. Medical Branch calcium-mag 2020-0 Yes [id number] Take as Univers nesium-zinc 9-23 directed ity of 333-133-8.3 00:00: for daily [place] mg Tab 00 dose. Medical Branch benzonatate 2019-0 Yes [id number] 100mg Take 1 Univers 100 mg 9-23 capsule by ity of capsule 00:00: mouth 3 [place] 00 (three) Medical times Branch daily as needed for Cough. chlorphenir 2020-0 Yes [id number] 4mg Take 1 Univers amine 4 mg 9-23 tablet by ity of tablet 00:00: mouth [place] 00 every 6 Medical (six) Branch hours as needed for Allergies or Runny nose. multivitami 2020-0 Yes [id number] 1{capsu Take 1 Univers n capsule 9-23 le} capsule by ity of 00:00: mouth [place] 00 daily. Medical Branch calcium-mag 2020-0 Yes [id number] Take as Univers nesium-zinc 9-23 directed ity of 333-133-8.3 00:00: for daily [place] mg Tab 00 dose. Medical Branch losartan-hy 2019-0 Yes 1{tbl} Take 1 Un [place] drochloroth 8-19 tablet by ity of iazide 16:05: mouth [place] 100-12.5 mg 41 daily. Medica l per tablet Branch zolpidem 5 2019-0 Yes 5mg Take 5 mg Un [place] mg tablet 8-19 by mouth ity of 16:05: at bedtime [place] 41 as needed Medical for Branch Insomnia. losartan-hy 2018- Yes 1{tbl} Take 1 Un [place] drochloroth 8-19 tablet by ity of iazide 16:05: mouth [place] 100-12.5 mg 41 daily. Medica l per tablet Branch zolpidem 5 2019-0 Yes 5mg Take 5 mg Un [place] mg tablet 8-19 by mouth ity of 16:05: at bedtime [place] 41 as needed Medical for Branch Insomnia. carvedilol 2019-0 Yes 3.125mg Take 3.125 Univers (COREG) 8-19 mg by ity of 3.125 mg 16:05: mouth 2 [place] tablet 40 (two) Medical times Branch daily with meals. cloNIDine 2019-0 Yes .3mg Take 0.3 Univ ers 0.3 mg 8-19 mg by ity of tablet 16:05: mouth 3 [place] 40 (three) Medical times Branch daily. gabapentin 2019-0 Yes 800mg Take 800 [place] 800 mg 8-19 mg by ity of tablet 16:05: mouth 3 [place] 40 (three) Medical times Branch daily. Hydrocodone 2019-0 Yes Take by Un [place] -Acetaminop 8-19 mouth. ity of hen 7.5-300 16:05: [place] mg tablet 40 Medical Branch hydroxychlo 2018-0 Yes 200mg Take 200 U nivers roquine 200 8-19 mg by ity of mg tablet 16:05: mouth [place] 40 daily. Medical Branch carvedilol 2019-0 Yes 3.125mg Take 3.125 Univers (COREG) 8-19 mg by ity of 3.125 mg 16:05: mouth 2 [place] tablet 40 (two) Medical times Branch daily with meals. cloNIDine 2019-0 Yes .3mg Take 0.3 Univ ers 0.3 mg 8-19 mg by ity of tablet 16:05: mouth 3 [place] 40 (three) Medical times Branch daily. gabapentin 2019-0 Yes 800mg Take 800 Un [place] 800 mg 8-19 mg by ity of tablet 16:05: mouth 3 [place] 40 (three) Medical times Branch daily. Hydrocodone 2019-0 Yes Take by Un [place] -Acetaminop 8-19 mouth. ity of hen 7.5-300 16:05: [place] mg tablet 40 Medical Branch hydroxychlo 2018-0 Yes 200mg Take 200 U nivers roquine 200 8-19 mg by ity of mg tablet 16:05: mouth [place] 40 daily. Medical Branch Vital Signs Vital Name Observation Time Observation Value Comments Source Systolic blood 2020-08-10 17:00:00 152 mm[Hg] Univer sity of pressure [place] [facility] Diastolic blood 2020-08-10 17:00:00 90 mm[Hg] Unive rsity of pressure [place] [facility] Heart rate 2020-08-10 17:00:00 54 /min [facility]i ty [facility] [place] [facility] Respiratory rate 2020-08-10 17:00:00 18 /min Univ ersity of [place] [facility] Oxygen saturation in 2020-08-10 17:00:00 97 /min University of Arterial blood by [place] [employer] trever Pulse oximetry Branch Body weight 2020-08-10 16:37:00 116.574 kg [facility] [place] [facility] BMI 2020-08-10 16:37:00 42.77 kg/m2 [facility] [place] [facility] Body temperature 2020-08-10 16:34:00 36.89 Mya Univ ersity [facility] [place] [facility] Systolic blood 2020-08-10 17:00:00 152 mm[Hg] Univer sity of pressure [place] [facility] Diastolic blood 2020-08-10 17:00:00 90 mm[Hg] Unive rsity of pressure [place] [facility] Heart rate 2020-08-10 17:00:00 54 /min [facility]i [facility] [place] [facility] Respiratory rate 2020-08-10 17:00:00 18 /min Univ ersity [facility] [place] [facility] Oxygen saturation in 2020-08-10 17:00:00 97 /min University of Arterial blood by [place] [employer] trever Pulse oximetry Branch Body weight 2020-08-10 16:37:00 116.574 kg [facility] [place] [facility] BMI 2020-08-10 16:37:00 42.77 kg/m2 [facility] [place] [facility] Body temperature 2020-08-10 16:34:00 36.89 Mya Univ ersity of [place] [facility] Systolic blood 2020-07-30 18:00:00 175 mm[Hg] Univer sity of pressure [place] [facility] Diastolic blood 2020-07-30 18:00:00 86 mm[Hg] Unive rsity of pressure [place] [facility] Heart rate 2020-07-30 18:00:00 67 /min [facility] [place] [facility] Respiratory rate 2020-07-30 18:00:00 19 /min Univ ersity [facility] [place] [facility] Oxygen saturation in 2020-07-30 18:00:00 94 /min University of Arterial blood by [place] [employer] trever Pulse oximetry Branch Body temperature 2020-07-30 14:43:00 37.28 Mya [facility] Body weight 2020-07-30 14:43:00 116.574 kg [facility] BMI 2020-07-30 14:43:00 42.77 kg/m2 [facility] Systolic blood 2020-07-30 18:00:00 175 mm[Hg] Urban sity of pressure [facility] Diastolic blood 2020-07-30 18:00:00 86 mm[Hg] [facility] 2020-07-30 18:00:00 67 /min [facility] Respiratory rate 2020-07-30 18:00:00 19 /min [facility] Oxygen saturation in 2020-07-30 18:00:00 94 /min [facility] Arterial blood by [facility] Pulse oximetry [place] Body temperature 2020-07-30 14:43:00 37.28 Mya [facility] Body weight 2020-07-30 14:43:00 116.574 kg [facility] BMI 2020-07-30 14:43:00 42.77 kg/m2 [facility] Procedures Procedure Date / Time Performing Clinician Source Performed CONSENT/REFUSAL FOR 2020-08-10 16:21:35 Doctor Unassigned, No Un [facility] DIAGNOSIS AND TREATMENT Name Medical Branch XR CHEST 1 2020-07-30 17:41:57 Triston Frank [facility] URINALYSIS 2020-07-30 17:14:00 Triston Frank [facility] CT ABDOMEN PELVIS WO 2020-07-30 16:22:19 Triston Frank [facility] CONTRAST [facility] Branch XR CHEST 1 2020-07-30 15:46:13 Singer Triston [facility] COVID-19 (ID NOW RAPID 2020-07-30 15:23:00 Triston Frank [facility] TESTING) [facility] COMP. METABOLIC PANEL 2020-07-30 15:21:00 Triston Frank [facility] ([id number]) Medical Branch SEDIMENTATION RATE 2020-07-30 15:21:00 Triston Frank of [facility] CBC WITH DIFF 2020-07-30 15:21:00 Triston Frank o luc [facility] Encounters Start End Encounter Admission Attending Care Care Encounter Source Date/Time Date/Time Type Type Clinicians Facility Department ID 2020-08-10 2020-08-10 [facility] [id number] 11:31:00 13:39:00 [place] [id number] [place] [id number] [place] [address] [id number] [facility] 2020-08-10 2020-08-10 [facility] [id number] Univers 11:31:00 13:39:00 [place] [id number] ity [facility] 4[address]7.[address] [place] [id number] 2020-08-10 2020-08-10 Emergency X CURRY, [facility] ERT [id number] Univers 11:31:00 11:31:00 [place] gasca [facility] 2020-07-30 2020-07-30 [facility] [id number] Univers 09:45:00 14:54:00 [place] [id number] i ty of [place] 4.[address] [place] [id number] 2020-07-30 2020-07-30 [facility] [id number] 09:45:00 14:54:00 [place] [id number] [place] [address] [place] [address] [phone] [facility] 2020-07-30 2020-07-30 [facility] [id number] Univers 09:45:00 09:45:00 [place] gasca [facility] Results Test Description Test Time Test Comments Results Result Comments Source URINALYSIS 2020-07-30 18:00:00 Test Item Value Reference Range Interpretation Comme nts APPEARANCE (test code = Hazy Clear A 3796494540) COLOR (test code = 8418488801) Yellow Yellow PH (test code = 4541089584) 4.8-8.0 SP GRAVITY (test code = 1.003-1.030 7492734575) GLU U QUAL (test code = 50 mg/dL Normal A 9771108028) BLOOD (test code = 0984281314) Negative Negative INTERFERENCE FROM ASCORBIC ACID MAY CAUSE FALSE NEGATIVE RESULT KETONES (test code = 6389782482) Negative Negative PROTEIN (test code = 2887-8) Negative Negative UROBILIN (test code = Normal Normal 1882293827) BILIRUBIN (test code = Negative Negative 2451546236) NITRITE (test code = 5468513554) Negative Negative LEUK OMAR (test code = Negative Negative 2815687583) RBC/HPF (test code = 7227191450) See_Comment [Automated message] The system which ge nerated this result transmit nette reference range: 0 - 3 HP F. The reference range was not used to interpret th is result as normal/abnormal . WBC/HPF (test code = 2476746010) See_Comment [Automated message] The system which ge nerated this result transmit nette reference range: 0 - 5 HP F. The reference range was not used to interpret th is result as normal/abnormal . BACTERIA (test code = Many Negative A 5886760487) MUCOUS (test code = 2204290923) Slight Negative LPF A SQ EPITH (test code = HPF 2371146629) HYAL CAST (test code = See_Comment H [Aut omated message] The 6101298193) system which [employer] nerated this result transmit nette reference range: <=2 LPF. The reference range was not u sed to interpret this result as normal/abnormal . Lab Interpretation (test code = Abnormal 30236-7) [facility] [id number] 17:46:29HISTORY: Reevaluate right upper lobe infiltrate. FINDINGS: Lateral view of the chest showed no abnormality in the lungs.Subtle note made of cholecystectomy.[facility], Radiant Results Inft User - 07/30/2020 12:47 PM CDTHISTORY: Reevaluate right upper lobe infiltrate.FINDINGS: Lateral view of the chest showed no abnormality in the lungs.Subtle note made of cholecystectomy.[facility] A[facility]OM[facility] PELVIS WO [id number] 16:42:17CT Abdomen and Pelvis without contrast. CLINICAL HISTORY: ?FLANK PAIN. R/O RENAL STONES. TECHNIQUE: M ultidetector helical CT acquisition was obtained from the lungbases to the greater trochanters without oral and IV contrast. ?The imageswere reviewed in lung, bone, and soft tissue windows. FINDINGS: ?Absence of intravenous contrast limits evaluation of the solidorgans. Evaluation of the bowel is alsolimited by lack of oral contrast. Lower lungs: Ill-defined hazy 5 mm nodule in the left lower lung. Verysmall pericardial effusion noted. No pleural effusion effusion. Shortsliding hiatal hernia suspected. Liver, Gallbladder and Spleen: S/P cholecystectomy. Grossly unremarkableliver and spleen. Possible 12 mm accessory splenule near the hilum of thespleen. Peritoneum: ?No free air or free fluid. No lymphadenopathy. Pancreas and Adrenals: ?Unremarkable pancreas and adrenal glands. Kidneys and Ureters: ?No visible calculi in the renal collecting systems. No hydroureter or hydronephrosis. Multiple low-density lesions in thekidney, largest is 5.5 cm. Vessels: Mild diffuse atherosclerosis. Retroperitoneum: No abnormal fluid or lymphadenopathy. Bowel: Generalized diverticulosis of the large bowel without any acutechanges. Appendix not visualized, however, no signs of acute appendicitisare seen. Small bowel gas pattern is unremarkable. Bladder ?and Reproductive Organs: S/P hysterectomy. No gross pathology inthe underdistended urinary bladder. Bones: Lumbar levoscoliosis and mild degenerative spondylosis. Soft tissues: Irregular shaped 2 x 1 cm fat-containing umbilical hernia. CONCLUSION:1. No kidneystones or obstructive hydronephrosis.2. Multiple lesions in the right kidney could be cysts which may be furtherevaluated by CT urogram study. There is persistent history of flank painand/or hematuria.3. S/P cholecystectomy and hysterectomy.4. Ill-defined 5 mm nodule suspected in the left lower lung (9:148).Noncontrast enhanced CT scan of the chest may be obtained as nonemergentoutpatient study for complete evaluation. [facility], Radiant Results Inft User - 07/30/2020 11:43 AM CDTCT Abdomen and Pelvis without contrast.CLINICAL HISTORY: FLANK PAIN. R/O RENAL STONES.TECHNIQUE: Multidetector helical CT acquisition was obtained from the lungbases to the greater trochanters without oral and IV contrast.The imageswere reviewed in lung, bone, and soft tissue windows.FINDINGS: Absence of intravenous contrast limits evaluation of the solidorgans. Evaluation of the bowel is also limited by lack of oral contrast. Lower lungs: Ill-defined hazy 5 mm nodule in the left lower lung. Verysmall pericardial effusion noted. No pleural effusion effusion. Shortsliding hiatal hernia suspected.Liver, Gallbladder andSpleen: S/P cholecystectomy. Grossly unremarkableliver and spleen. Possible 12 mm accessory splenulenear the hilum of thespleen.Peritoneum: No free air or free fluid. No lymphadenopathy.Pancreas and Adrenals: Unremarkable pancreas and adrenal glands.Kidneys and Ureters: No visible calculi in the renal collecting systems. No hydroureter or hydronephrosis. Multiple low-density lesions in thekidney,largest is 5.5 cm.Vessels: Mild diffuse atherosclerosis.Retroperitoneum: No abnormal fluid or lymphad enopathy.Bowel: Generalized diverticulosis of the large bowel without any acutechanges. Appendix notvisualized, however, no signs of acute appendicitisare seen. Small bowel gas pattern is unremarkable.Bladder and Reproductive Organs: S/P hysterectomy. No gross pathology inthe underdistended urinary bladder. Bones: Lumbar levoscoliosis and mild degenerative spondylosis.Soft tissues: Irregular shaped2 x 1 cm fat-containing umbilical hernia.CONCLUSION:1. No kidney stones or obstructive hydronephrosis.2. Multiple lesions in the right kidney could be cysts which may be furtherevaluated by CT urogram study. There is persistent history of flank painand/or hematuria.3. S/P cholecystectomy and hysterectomy.4. Ill-defined 5 mm nodule suspected in the left lower lung (9:148).Noncontrast enhanced CT scan of the chest may be obtained as nonemergentoutpatient study for complete evaluation.[facility] MET[facility]OLIC PANEL ([id number])2020-07-30 16:26:00 Test Item Value Reference Range Interpretation Comments NA (test code = 138 mmol/L 135-145 4755717291) K (test code = 3.6 mmol/L 3.5-5 9972388180) CL (test code = 102 mmol/L 98-108 5947863153) CO2 TOTAL (test code = 29 mmol/L 23-31 6872966151) AGAP (test code = 2-16 9964542561) BUN (test code = 14 mg/dL 7-23 9851937894) GLUCOSE (test code = 104 mg/dL 70-110 6441207038) CREATININE (test code = 1.10 mg/dL 0.5-1.04 H 1881748822) TOTAL BILI (test code = 0.4 mg/dL 0.1-1.3 0852850209) CALCIUM (test code = 9.2 mg/dL 8.6-10.6 0828991410) T PROTEIN (test code = 7.2 g/dL 6.3-8.2 2617622341) ALBUMIN (test code = 3.7 g/dL 3.5-5 8650267806) ALK PHOS (test code = 132 U/L 34-122 H 9560580390) ALTv (test code = 16 U/L 5-35 2-6) AST(SGOT) (test code = 27 U/L 13-40 5199911206) eGFR Calculation mL/min/1.73m2 (Non-) (test code = 2577065358) eGFR Calculation mL/min/1.73m2 () (test code = 1600312828) IQRA (test code = IQRA) Association of Glomerular Filtration Rate (GFR) and Staging of Kidney Disease* + --+ --+ ------+| GFR (mL/min/1.73 m2) ?| With Kidney Damage ?| ?Without Kidney Damage+ --------+ --------+ +| ?>90 ?| ?Stage one ?| ? Normal ?+ ---+ ---+ -------+| ?60-89 ?| ?Stage two ?| ? Decreased GFR ? + --+ --+ ------+| ?30-59 ?| ?Stage three ?| ? Stage three ? + --+ --+ ------+| ?15-29 ?| ?Stage four ? | ? Stage four ?+ ---+ ---+ -------+| ?<15 (or dialysis) ? ?| ?Stage five ? | ? Stage five ?+ ---+ ---+ -------+ *Each stage assumes the associated GFR level has been in effect for at least three months. ?Stages 1 to 5, with or without kidney disease, indicate chronic kidney disease. Notes: Determination of stages one and two (with eGFR >59mL/min/1.73 m2) requires estimation of kidney damage for at least three months as defined by structural or functional abnormalities of the kidney, manifested by either:Pathological abnormalities or Markers of kidney damage (including abnormalities in the composition of the blood or urine or abnormalities in imaging tests). Lab Interpretation Abnormal (test code = 99706-6) [facility]EDIM[facility] [id number] 16:09:00 Test Item Value Reference Range Interpretation Comments ESR (test code = See_Comment H [Automated message] [id number]) The system [employer] generated this result transmitted ref erence range: 0 - 20 m m/HR. The reference r kalie was not used to interpret this result as normal/abnor mal. Lab Interpretation (test Abnormal code = 30184-3) [facility] CHEST 1 [id number] 15:52:41HISTORY: Cough. TECHNIQUE: Portable AP semierect view of the chest is obtained. FINDINGS: Focal congestion is seen in the right upper lobe, approximately1.8 cm size. Minimal congestion noted in the right lower lung. Nopneumothorax or pleural effusion or detected. Borderline cardiomegalynoted. Thoracicdextroscoliosis and mild degenerative spondylosis is noted. CONCLUSIONS: Subtle signs of early developing infiltrate in right upperlobe. Follow-up PA and lateral views of the chest should be obtained toconfirm complete resorption of the abnormal findings in right upper lobe.[facility], Radiant Results Inft User - 07/30/2020 10:53 AM CDTHISTORY: Cough.TECHNIQUE: Portable AP semierect view of the chest is obt ained.FINDINGS: Focal congestion is seen in the right upper lobe, approximately1.8 cm size. Minimal congestion noted in the right lower lung. Nopneumothorax or pleural effusion or detected. Borderline cardiomegalynoted. Thoracic dextroscoliosis and mild degenerative spondylosis is noted.CONCLUSIONS: Subtle signs of early developing infiltrate in right upperlobe. Follow-up PA and lateral views of the chest should be obtained toconfirm complete resorption of the abnormal findings in right upper lobe.[facility] COVID-19 (ID NOW RAPID TESTING)2020-07-30 15:47:00 Test Item Value Reference Range Interpretation Comments SARS-CoV-2 Rapid ID NOW Positive Not Detected A (test code = 05149-3) IQRA (test code = IQRA) ID NOW COVID-19 Assay is an isothermal nucleic acid amplification test intended for the qualitative detection of nucleic acid from SARS-CoV-2 viral RNA in nasopharyngeal (HISTORY FACULTY MEMBER) specimens. It is used under Emergency Use Authorization (EUA) by FDA. The limit of detection (LOD) of the assay is 125 Genome Equivalents/mL. A positive result is indicative of the presence of SARS-CoV-2 RNA. ?Clinical correlation with patient history and other diagnostic information is necessary to determine patient infection status. A negative (Not Detected) result does not preclude SARS-CoV-2 infection. In patients with clinical symptoms and other tests that are consistent with SARS-CoV-2 infection, negative results should be treated as presumptive negative and a new specimen should be tested with alternative PCR molecular test. Invalid: Please collect a new specimen for repeat patient testing if clinically indicated. Lab Interpretation Abnormal (test code = 03498-9) [facility] WITH [id number] 15:32:00 Test Item Value Reference Range Interpretation Comments WBC (test code = See_Comment [Automated 9690-2) message] The sy stem which generated this result transmitted reference range : 4.30 - 11.10 10*3/?L. The reference range was not used to interpret this result as normal/abnormal . RBC (test code = See_Comment L [Automated 9-8) message] The sy stem which generated this result transmitted reference range : 3.93 - 5.25 10*6/?L. The reference range was not used to interpret this result as normal/abnormal . HGB (test code = 11.3 g/dL 11.6-15 L 718-7) HCT (test code = 34.7 % 35.7-45.2 L 4544-3) MCV (test code = 89.4 fL 80.6-95.5 787-2) MCH (test code = 29.1 pg 25.9-32.8 785-6) MCHC (test code = 32.6 g/dL 31.6-35.1 786-4) RDW-SD (test code = 44.9 fL 39-49.9 92279-2) RDW-CV (test code = 13.8 % 12-15.5 788-0) PLT (test code = See_Comment [Automated 457-3) message] The sy stem which generated this result transmitted reference range : 166 - 358 10*3/ ?L. The reference r kalie was not used to interpret this result as normal/abnormal . MPV (test code = 10.6 fL 9.5-12.9 38567-4) NRBC/100 WBC (test See_Comment [Automat ed code = 6859562749) message] The system which generated this result transmitted reference range : 0.0 - 10.0 /100 WBCs. The refer ence range was not u sed to interpret th is result as normal/abnormal . NRBC x10^3 (test code <0.01 See_Comment [Auto mated = 5412767667) message] The s ystem which generated this result transmitted reference range : 10*3/?L. The reference range was not used to interpret this result as normal/abnormal . GRAN MAT (NEUT) % 69.7 % (test code = 770-8) IMM GRAN % (test code 0.40 % = 4628032684) LYMPH % (test code = 17.0 % 736-9) MONO % (test code = 12.3 % 5905-5) EOS % (test code = 0.2 % 713-8) BASO % (test code = 0.4 % 706-2) GRAN MAT x10^3(ANC) 3.97 10*3/uL 1.88-7.09 (test code = 0209065534) IMM GRAN x10^3 (test <0.03 0-0.06 code = 4585953827) LYMPH x10^3 (test code 0.97 10*3/uL 1.32-3.29 L = 731-0) MONO x10^3 (test code 0.70 10*3/uL 0.33-0.92 = 742-7) EOS x10^3 (test code = <0.03 0.03-0.39 L 711-2) BASO x10^3 (test code <0.03 0.01-0.07 = 704-7) Lab Interpretation Abnormal (test code = 86595-3) [facility]"
--- NOTE | 2021-09-19 21:12 | PN ---
Date of Progress Note: 09/16/2021 Subjective: Ms. Santos was admitted with atypical chest pain. [place] has been ruled out. Echocardiogram was normal. She has bifascicular block. She is pain free. She had a negative venous ultrasound an d negative chest x-ray. Her pain still sounds atypical, but she has multiple risk factors and I will suggest she goes home and I will make an arrangement for her to have an outpatient Lexiscan and see me. No changes in medical therapy for now. VIRAL/BEBE Voice ID: [id number] Report ID: [id number]
--- NOTE | 2021-09-19 21:12 | CON ---
Date of Consultation: 09/15/[address] Zhao on 09/15/2021. I saw the patient on 09/15/2021. Reason For Consultation: Chest pain and shortness of breath. History Of Present Illness: Mrs. Santos is a 70-year-old, has a history of arthritis, hypertension, l upus, neuropathy, anxiety, gastroesophageal reflux disease. Came in with a sharp stabbing chest pain radiating to the left arm and the left shoulder without any nausea, vomiting, diaphoresis, PND, orth opnea, pedal edema, palpitation, or syncope. She has had some palpitation. Her symptoms were ____ she graded her pain as a 5/10. She has already ruled out for an NE. Allergies: SULFA. Review of Systems: Negative. Social History: Negative. Family History: Negative. Medications: At home include Xanax, amlodipine, carvedilol, losartan, hydrochlorothiazide, Elma, an d omeprazole. Physical Examination: Vital Signs: Stable. She was afebrile. HEENT: Negative. Neck: Supple with no bruit. Chest: Clear to auscultation and percussion. Cardiac: Exam revealed a regular rhythm and rate. No murmurs, gallops, or rubs. Abdomen: Benign. Extremities: Revealed no clubbing, cyanosis, or edema. Diagnostic Data: Were all normal. Impression And Plan: Atypical chest pain in a patient with history of hypertension, gastroesophageal reflux disease, lupus, and neuropathy. I think an echocardiogram is indicated. She should really h ave an outpatient stress test as well. She did have a venous Doppler that was negative. Her EKG bas ically showed bifascicular block. Her echocardiogram is normal. She can go home and I will make arr angements for an outpatient Lexiscan. VIRAL/BEBE Voice ID: [id number] Report ID: [id number]
== END 2021-09-16 13:14 | disposition home or self-care (01) ==
LOC: ER 10:04 → ERHOLD 15:15 → 2ND 16:46
PROVIDERS: ADMIT Hospitalist; ATTEND Hospitalist
DX: R07.9 Chest pain, unspecified (principal); I11.0 Hypertensive heart disease with heart failure; I50.33 Acute on chronic diastolic (congestive) heart failure; M32.9 Systemic lupus erythematosus, unspecified; G62.9 Polyneuropathy, unspecified; K27.9 Peptic ulcer, site unspecified, unspecified as acute or chronic, without hemorrhage or perforation; I45.2 Bifascicular block; Z91.14 Patient's other noncompliance with medication regimen; I25.2 Old myocardial infarction; Z20.822 Contact with and (suspected) exposure to COVID-19
CPT/HCPCS: 93005 ×2; 93306; 85025 ×2; 80048; 36415; 83735 ×2; 85610; 80061; 80076; 84443; 81003; 84484 ×3; 84439; 80053; 83880 ×2; 71045 ×2; 93971; 94760 ×2; 96374; 99285; U0003; J1940 ×2; J1650 ×2; J2270 ×2; G0378 ×3; J7512

== ENCOUNTER 2022-03-02 08:40 | Emergency (ER) | payer OTHER ==
--- OUTSIDE RECORDS SUMMARY | 2022-03-02 08:44 | XMS REPORT | Continuity of Care Document ---
:1950 Author Organization [facility] t Address [address] [place] [address] Care Team Providers Name Role Phone Willy [...] rs active active ity of problems problems [facility] Allergies, Adverse Reactions, Alerts Allergy Allergy Status [...] Date Stop Date Quantity Comments Source History SDAL University o f Alcohol Binge [place] [facility] Sex Assigned At [facility] [place] [facility] Exposure to Yes University SARS-CoV-2 [place] [facility] (event[facility] History [facility] University o f Alcohol Std [place] [facility] Drinks Branch Tobacco use and 2020-07-30 2020-07-30 Never used Universit y of exposure 00:00:00 00:00:00 [facility] Branch Alcohol intake 2020-07-30 2020-07-30 Lifetime University of 00:00:00 00:00:00 non-drinker [place] [facility] (finding) Branch History SDOH 2019-06-25 2019-06-25 1 University o f Alcohol Frequency 00:00:00 00:00:00 [facility] Smoking Status Start Date Stop Date Source Never smoker [facility] Branch Medications Ordered Filled Start Stop [...] dose, [facility] 1,000 mg 08/10/20 at [facility] h 1330, Routine dexamethaso 2019-11- No 10mg 10 mg, Uni vers ne 0-04 10-04 Intramuscu ity of (DECADRON 18:00: 18:00 lar, ONCE, [place] PHOSPHATE) 00 :00 1 dose, Medica l injection [facility] 10 mg 08/10/20 at 1300, STAT methocarbam 2019-11 Yes [id number] 750mg Take 1 Univers oL 0-04 tablet by ity of (ROBAXIN-75 00:00: mouth [place] 0) 750 mg 00 every 8 Medical tablet (eight) Branch hours as needed for Pain (scale 4-6) for up to 15 doses. naproxen 2019-11 Yes [id number] 500mg Take 1 Un rommel 500 mg EC 0-04 tablet by ity o f tablet 00:00: mouth [place] 00 every 12 Medical (twelve) Branch hours as needed for Pain (scale 4-6) for up to 16 doses. predniSONE 2019-11 2020- No [id number] 40mg Take 2 Univers 20 mg 0-04 10-10 tablets by ity of tablet 00:00: 04:59 mouth [place] 00 :00 daily for Medical 5 days. Branch benzonatate Yes [id number] 100mg Take 1 Univers 100 mg 9-23 capsule by ity of capsule 00:00: mouth 3 [place] 00 (three) Medical times Branch daily as needed for Cough. chlorphenir 2020-0 Yes [id number] 4mg Take 1 Univers amine 4 mg 9-23 tablet by ity of tablet 00:00: mouth [place] 00 every 6 Medical (six) Branch hours as needed for Allergies or Runny nose. multivitami 2020-0 Yes [id number] 1{capsu Take 1 Univers n capsule 9-23 le} capsule by ity of 00:00: mouth [place] 00 daily. Medical Branch calcium-mag 2020-0 Yes [id number] Take as Univers nesium-zinc 9-23 directed ity of 333-133-8.3 00:00: for daily [place] mg Tab 00 dose. Medical Branch benzonatate 2019-0 Yes [id number] 100mg Take 1 Univers 100 mg 9-23 capsule by ity of capsule 00:00: mouth 3 [place] 00 (three) Medical times Branch daily as needed for Cough. chlorphenir 2020-0 Yes [id number] 4mg Take 1 Univers amine 4 mg 9-23 tablet by ity of tablet 00:00: mouth [place] 00 every 6 Medical (six) Branch hours as needed for Allergies or Runny nose. multivitami 2020-0 Yes [id number] 1{capsu Take 1 Univers n capsule 9-23 le} capsule by ity of 00:00: mouth [place] 00 daily. Medical Branch calcium-mag 2020-0 Yes [id number] Take as Univers nesium-zinc 9-23 directed ity [...] by mouth ity of 16:05: at bedtime [place] 41 as needed Medical for Branch Insomnia. [...] by ity of tablet 16:05: mouth 3 [place] 40 (three) Medical times Branch daily. Hydrocodone 2019-0 Yes Take by Un rommel -Acetaminop 8-19 mouth. ity of hen 7.5-300 16:05: [place] mg tablet 40 Medical Branch hydroxychlo 2018-0 Yes 200mg Take 200 U nivers roquine 200 8-19 mg by ity of mg tablet 16:05: mouth [place] 40 daily. Medical Branch carvedilol 2019-0 Yes 3.125mg Take 3.125 Univers (COREG) 8-19 mg by ity of 3.125 mg 16:05: mouth 2 [place] tablet 40 (two) Medical times Branch daily with meals. cloNIDine 2019-0 Yes .3mg Take 0.3 Univ ers 0.3 mg 8-19 mg by ity of tablet 16:05: mouth 3 [place] 40 (three) Medical times Branch daily. gabapentin [...] 17:00:00 152 mm[Hg] Univer sity of pressure [place] [facility] Diastolic blood 2020-08-10 17:00:00 90 mm[Hg] Unive rsity of pressure [place] [facility] Heart rate 2020-08-10 17:00:00 54 /min [facility] [place] [facility] Respiratory rate 2020-08-10 17:00:00 18 /min Univ ersity [facility] [place] [facility] Oxygen saturation in 2020-08-10 17:00:00 97 /min University of Arterial blood by [place] [employer] trever Pulse oximetry Branch Body weight 2020-08-10 16:37:00 116.574 kg [facility] [place] [facility] BMI 2020-08-10 16:37:00 42.77 kg/m2 [facility] [place] [facility] Body temperature 2020-08-10 16:34:00 36.89 Mya Univ [facility] [place] [facility] Systolic blood 2020-08-10 17:00:00 152 mm[Hg] Univer sity of pressure [place] [facility] Diastolic blood 2020-08-10 17:00:00 90 mm[Hg] Unive rsity of pressure [place] [facility] Heart rate 2020-08-10 17:00:00 54 /min [facility] [place] [facility] Respiratory rate 2020-08-10 17:00:00 18 /min Univ [facility] [place] [facility] Oxygen saturation in 2020-08-10 17:00:00 97 /min University of Arterial blood by [place] [employer] trever Pulse oximetry Branch Body weight 2020-08-10 16:37:00 116.574 kg [facility] [place] [facility] BMI 2020-08-10 16:37:00 42.77 kg/m2 [facility] [place] [facility] Body temperature 2020-08-10 16:34:00 36.89 Mya [facility] [place] [facility] Systolic blood 2020-07-30 18:00:00 175 mm[Hg] Univer sity of pressure [place] [facility] Diastolic blood 2020-07-30 18:00:00 86 mm[Hg] Unive rsity of pressure [place] [facility] Heart rate 2020-07-30 18:00:00 67 /min [facility] [place] [facility] Respiratory rate 2020-07-30 18:00:00 19 /min Univ [facility] [place] [facility] Oxygen saturation in 2020-07-30 18:00:00 94 /min University of Arterial blood by [place] [employer] [facility]ver Pulse oximetry Branch Body temperature 2020-07-30 14:43:00 37.28 Mya [facility] Body weight 2020-07-30 14:43:00 116.574 kg [facility] BMI 2020-07-30 14:43:00 42.77 kg/m2 [facility] Systolic blood 2020-07-30 18:00:00 175 mm[Hg] Urban sity of pressure [facility] Diastolic blood 2020-07-30 18:00:00 86 mm[Hg] [facility] 2020-07-30 18:00:00 67 /min [facility] Respiratory rate 2020-07-30 18:00:00 19 /min [facility] Oxygen saturation in 2020-07-30 18:00:00 94 /min [facility] Arterial blood by [facility] Pulse oximetry [place] Body temperature 2020-07-30 14:43:00 37.28 Mya [facility] Body weight 2020-07-30 14:43:00 116.574 kg [facility] BMI 2020-07-30 14:43:00 42.77 kg/m2 [facility] Procedures Procedure Date / Time Performing Clinician Source Performed CONSENT/REFUSAL FOR 2020-08-10 16:21:35 Doctor Unassigned, No Un [facility] DIAGNOSIS AND TREATMENT Name Medical Branch XR CHEST 1 2020-07-30 17:41:[address] [facility] URINALYSIS 2020-07-30 17:14:[address] [facility] CT ABDOMEN PELVIS WO 2020-07-30 16:22:19 Triston Frank [facility] CONTRAST [facility] Branch XR CHEST 1 2020-07-30 15:46:13 Singer Triston [facility] COVID-19 (ID NOW RAPID 2020-07-30 15:23:00 Triston Frank [facility] TESTING) [facility] COMP. METABOLIC PANEL 2020-07-30 15:21:00 Triston Frank [facility] ([id number]) Medical Branch SEDIMENTATION RATE 2020-07-30 15:21:00 Triston Frank of [facility] CBC WITH DIFF 2020-07-30 15:21:00 Triston Frank o luc [facility] Encounters Start End Encounter Admission Attending Care Care Encounter Source Date/Time Date/Time Type Type Clinicians Facility Department ID 2020-08-10 2020-08-10 [facility] [id number] 11:31:00 13:39:00 [place] [id number] [place] [id number] [place] [address] [id number] [facility] 2020-08-10 2020-08-10 [facility] [id number] Univers 11:31:00 13:39:00 [place] [id number] ity [facility] 4.2.7.[address] [place] [id number] 2020-08-10 2020-08-10 Emergency X CURRY, [facility] ERT [id number] Univers 11:31:00 11:31:00 [place] gasca [facility] 2020-07-30 2020-07-30 [id number] Univers 09:45:00 14:54:00 [place] [id number] i ty of [place] 4.2.7.[address] [place] [id number] 2020-07-30 2020-07-30 [facility] [id number] 09:45:00 14:54:00 [place] [id number] [place] [address] [place] [address] [id number] [facility] 2020-07-30 2020-07-30 Emergency [facility] [id number] Univers 09:45:00 09:45:00 [place] gasca [facility] Results Test Description Test Time Test Comments Results Result Comments Source URINALYSIS 2020-07-30 18:00:00 Test Item Value Reference Range Interpretation Comme nts APPEARANCE (test code = Hazy Clear A 8548621164) COLOR (test code = 6341964999) Yellow Yellow PH (test code = 0805271546) 4.8-8.0 SP GRAVITY (test code = 1.003-1.030 2342503180) GLU U QUAL (test code = 50 mg/dL Normal A 1347804112) BLOOD (test code = 8566749154) Negative Negative INTERFERENCE FROM ASCORBIC ACID MAY CAUSE FALSE NEGATIVE RESULT KETONES (test code = 3502872065) Negative Negative PROTEIN (test code = 2887-8) Negative Negative UROBILIN (test code = Normal Normal 7804445067) BILIRUBIN (test code = Negative Negative 0125715993) NITRITE (test code = 0689037522) Negative Negative LEUK OMAR (test code = Negative Negative 7089566372) RBC/HPF (test code = 5032111205) See_Comment [Automated message] The system which ge nerated this result transmit nette reference range: 0 - 3 HP F. The reference range was not used to interpret th is result as normal/abnormal . WBC/HPF (test code = 7670020662) See_Comment [Automated message] The system which ge nerated this result transmit nette reference range: 0 - 5 HP F. The reference range was not used to interpret th is result as normal/abnormal . BACTERIA (test code = Many Negative A 5633601761) MUCOUS (test code = 8909165556) Slight Negative LPF A SQ EPITH (test code = HPF 5304642211) HYAL CAST (test code = See_Comment H [Aut omated message] The 3977300692) system which [employer] nerated this result transmit nette reference range: <=2 LPF. The reference range was not u sed to interpret this result as normal/abnormal . Lab Interpretation (test code = Abnormal 61796-7) [facility] [place] [facility] [id number] 17:46:29HISTORY: Reevaluate right upper lobe infiltrate. FINDINGS: Lateral view of the chest showed no abnormality in the lungs.Subtle note made of cholecystectomy.[facility], Radiant Results Inft User - 07/30/2020 12:47 PM CDTHISTORY: Reevaluate right upper lobe infiltrate.FINDINGS: Lateral view of the chest showed no abnormality in the lungs.Subtle note made of cholecystectomy.[facility] [place] [facility] PELVIS WO [id number] 16:42:17CT Abdomen and Pelvis without contrast. CLINICAL [...] obtained as nonemergentoutpatient study for complete evaluation. [facility], Radiant Results Inft User - 07/30/2020 11:43 [...] be obtained as nonemergentoutpatient study for complete evaluation.[facility] [place] [facility]. METABOLIC PANEL ([id number])2020-07-30 16:26:00 Test Item Value Reference Range Interpretation Comments NA (test code = 138 mmol/L 135-145 4016849591) K (test code = 3.6 mmol/L 3.5-5 1330605931) CL (test code = 102 mmol/L 98-108 7608574319) CO2 TOTAL (test code = 29 mmol/L 23-31 3710668365) AGAP (test code = 2-16 0562217186) BUN (test code = 14 mg/dL 7-23 3156988520) GLUCOSE (test code = 104 mg/dL 70-110 8044197352) CREATININE (test code = 1.10 mg/dL 0.5-1.04 H 6299275630) TOTAL BILI (test code = 0.4 mg/dL 0.1-1.7 0446624571) CALCIUM (test code = 9.2 mg/dL 8.6-10.6 5257852902) T PROTEIN (test code = 7.2 g/dL 6.3-8.2 7817036455) ALBUMIN (test code = 3.7 g/dL 3.5-5 4858772167) ALK PHOS (test code = 132 U/L 34-122 H 1469884160) ALTv (test code = 16 U/L 5-35 2-6) AST(SGOT) (test code = 27 U/L 13-40 9652570005) eGFR Calculation mL/min/1.73m2 (Non-) (test code = 0137025178) eGFR Calculation mL/min/1.73m2 () (test code = 4442173433) IQRA (test code = IQRA) Association of [...] tests). Lab Interpretation Abnormal (test code = 67747-8) [facility] [place] [facility]EDIM[facility] [id number] 16:09:00 Test Item Value Reference Range Interpretation Comments ESR (test code = See_Comment H [Automated message] 6848167461) The system [employer] generated this result transmitted ref erence range: 0 - 20 m m/HR. The reference r kalie was not used to interpret this result as normal/abnor mal. Lab Interpretation (test Abnormal code = 36075-9) [facility] [place] [facility] CHEST 1 [id number] 15:52:41HISTORY: Cough. TECHNIQUE: Portable AP semierect view [...] of the abnormal findings in right upper lobe.[facility], Radiant Results Inft User - 07/30/2020 10:53 [...] of the abnormal findings in right upper lobe.[facility] [place] [facility] COVID-19 (ID NOW RAPID TESTING)2020-07-30 15:47:00 Test Item Value Reference Range Interpretation Comments SARS-CoV-2 Rapid ID NOW Positive Not Detected A (test code = 94121-4) IQRA (test code = IQRA) ID NOW COVID-19 Assay is an isothermal nucleic acid amplification test intended for the qualitative detection of nucleic acid from SARS-CoV-2 viral RNA in nasopharyngeal (HEAD OF STOCK) specimens. It is used under Emergency Use [...] indicated. Lab Interpretation Abnormal (test code = 79876-1) [facility] WITH [id number] 15:32:00 Test Item Value Reference Range Interpretation Comments WBC (test code = See_Comment [Automated 0390-2) message] The sy stem which generated this result transmitted reference range : 4.30 - 11.10 10*3/?L. The reference range was not used to interpret this result as normal/abnormal . RBC (test code = See_Comment L [Automated 719-8) message] The sy stem which generated this [...] RDW-SD (test code = 44.9 fL 39-49.9 78812-2) RDW-CV (test code = 13.8 % 12-15.5 788-0) PLT (test code = See_Comment [Automated 517-3) message] The sy stem which generated this result transmitted reference range : 166 - 358 10*3/ ?L. The reference r kalie was not used to interpret this result as normal/abnormal . MPV (test code = 10.6 fL 9.5-12.9 54496-1) NRBC/100 WBC (test See_Comment [Automat ed code = 2818838279) message] The system which generated this result transmitted reference range : 0.0 - 10.0 /100 WBCs. The refer ence range was not u sed to interpret th is result as normal/abnormal . NRBC x10^3 (test code <0.01 See_Comment [Auto mated = 0424889115) message] The s ystem which generated this result transmitted reference range : 10*3/?L. The reference range was not used to interpret this result as normal/abnormal . GRAN MAT (NEUT) % 69.7 % (test code = 770-8) IMM GRAN % (test code 0.40 % = 1596273801) LYMPH % (test code = 17.0 % 736-9) MONO % (test code = 12.3 % 5905-5) EOS % (test code = 0.2 % 713-8) BASO % (test code = 0.4 % 706-2) GRAN MAT x10^3(ANC) 3.97 10*3/uL 1.88-7.09 (test code = 0769333424) IMM GRAN x10^3 (test <0.03 0-0.06 code = 4231875090) LYMPH x10^3 (test code 0.97 10*3/uL 1.32-3.29 L = 731-0) MONO x10^3 (test code 0.70 10*3/uL 0.33-0.92 = 742-7) EOS x10^3 (test code = <0.03 0.03-0.39 L 711-2) BASO x10^3 (test code <0.03 0.01-0.07 = 704-7) Lab Interpretation Abnormal (test code = 60541-0) [facility] [place] [facility]"
[2022-03-02 09:38] LABS: Absolute Lymphocytes (CBC) 1.1 K/uL (0.7-4.9); Hematocrit 35.8 % (36.0-45.0); Lymphocytes % 13.5 % (15.3-44.8); MPV 9.7 fL (7.6-11.3); RBC Red Blood Cell Count 3.99 M/uL (3.86-4.86)
[2022-03-02 09:40] LABS: Protime INR 0.96
[2022-03-02] MEDS ORDERED: ONDANSETRON 4 MG/2 ML VIAL ONE (09:51)
[2022-03-02] MEDS ORDERED: MORPHINE 4 MG/ML SYR ONE (09:51)
[2022-03-02 10:03] LABS: Albumin 3.6 g/dL (3.4-5.0); Bilirubin Total 0.3 mg/dL (0.2-1.0); Troponin High Sensitivity 16.9 pg/mL (<58.9)
[2022-03-02 10:05] LABS: Potassium 3.8 mmol/L (3.5-5.1)
[2022-03-02 10:06] LABS: Magnesium 2.3 mg/dL (1.8-2.4)
--- NOTE | 2022-03-02 10:56 | RAD REPORT ---
EXAM DESCRIPTION: RAD - Chest Single View - 03/02/2022 9:59 am CLINICAL HISTORY: CHEST PAIN COMPARISON: Portable 09/16/2021 TECHNIQUE: AP portable chest image was obtained 03/02/2022 9:59 am . FINDINGS: Lung kumar are underinflated. No peripheral mass or consolidation. No significant failure or volume overload. Vasculature and lung markings are not clearly different from the comparison. Heart size is upper normal to slightly enlarged. No vascular engorgement. No measurable pleural effu jayesh and no pneumothorax. No acute bony abnormality seen. No acute aortic findings suspected. IMPRESSION: No acute cardiopulmonary process. No significant change from comparison.
--- NOTE | 2022-03-02 11:16 | RAD REPORT ---
EXAM DESCRIPTION: CT - Abdomen Pelvis W Contrast - 03/02/2022 11:01 am CLINICAL HISTORY: LUQ pain COMPARISON: No comparisons TECHNIQUE: Biphasic, helical CT imaging of the abdomen and pelvis was performed following 100 ml non -ionic IV contrast. No oral contrast given. All CT scans are performed using dose optimization technique as appropriate and may include automated exposure control or mA/KV adjustment according to patient size. FINDINGS: No suspicious findings in the lung bases. The liver, spleen, and pancreas show no suspicious findings. Gallbladder is absent. Intrahepatic and extrahepatic biliary tree dilatation present. Common bile duct measures 13 mm in the head of the panc reas. Pancreatic duct is mildly prominent. This degree of biliary tree dilatation can still be in the normal range for a patient this age after cholecystectomy. Correlation can be made with any biliary obstructive clinical or laboratory findings. Renal function is symmetric. No hydronephrosis or obstructing calculus. Bilateral renal cysts are pre sent. Cysts are more pronounced in the right kidney which is incompletely rotated as a normal anatomi c variant. Largest cyst on the right is 6.9 cm. Left renal cysts are much smaller, under 2 cm. No danita lonephritis or acute parenchymal process. No bladder abnormalities. No adrenal abnormalities. No stomach or small bowel acute finding. There is some fecalized bowel content in the distal small moe wel. Colon stool volume is not abnormal. Large intestine is not dilated. Patient has a very prominent diverticulosis pattern from splenic flexure to distal sigmoid colon. No diverticulitis findings. No free air, free fluid or inflammatory stranding. No hernia, mass or bulky lymphadenopathy. No suspicious bony findings. IMPRESSION: Patient has a very prominent left-sided diverticulosis pattern but no acute diverticulit is. Mild mucosal level inflammatory changes can be present an occult on CT imaging. Prominent biliary tree dilatation in a patient that is status post cholecystectomy. No right upper qu adrant symptoms were detailed. This degree of dilatation is not outside of the range of normal for po st cholecystectomy. Correlation is needed with any corresponding symptoms.
--- NOTE | 2022-03-02 11:48 | ER ---
Nurse's Notes [facility] Name: Nhi Santos Age: 71 yrs Sex: Female : 1950 Arrival Date: 03/02/2022 Time: 08:44 Bed 2 Private MD: Diagnosis: Abdominal pain, unspecified Presentation: 03/02 08:56 Chief complaint: Patient states: Pain in Epigastric, back, chest and Left leg x 2 day, vg1 also states SOB and nausea. Pt appears to have RANDELL leg swelling; states hx of CHF. Coronavirus screen: Vaccine status: Patient reports receiving the 2nd dose of the covid vaccine. Client denies travel out of the [place] in the last 14 days. Ebola Screen: Patient denies exposure to infectious person. Patient denies travel to an Ebola-affected area in the 21 days before illness onset. Initial Sepsis Screen: Does the patient meet any 2 criteria? No. Patient's initial sepsis screen is negative. Does the patient have a suspected source of infection? No. Patient's initial sepsis screen is negative. Risk Assessment: Do you want to hurt yourself or someone else? Patient reports no desire to harm self or others. Onset of symptoms was February 28, 2022. 08:56 Method Of Arrival: Ambulatory vg1 08:56 Acuity: TESSY 2 vg1 Triage Assessment: 08:59 General: Appears in no apparent distress. uncomfortable, Behavior is calm, cooperative. vg1 Pain: Complains of pain in back, chest and epigastric area and Left leg Pain currently is 7 out of 10 on a pain scale. Pain began 2-3 days ago. GI: Abdomen is round non-distended, obese, Reports nausea. Historical: - Allergies: 08:59 Sulfa (Sulfonamide Antibiotics); vg1 - Home Meds: 08:59 amlodipine 10 mg tab 1 tab once daily [Active]; carvedilol 6.25 mg Oral tab 1 tab daily vg1 [Active]; sertraline oral [Active]; losartan-hydrochlorothiazide 100-12.5 mg Oral tab 1 tab once daily [Active]; furosemide 20 mg Oral tab once daily [Active]; omeprazole 40 mg Oral cpDR 1 cap once daily [Active]; [place] 7.5-325 mg oral tab [Active]; gabapentin oral [Active]; Methocarbamol Oral [Active]; - PMHx: 08:59 ADD/ADHD; Arthritis; Hypertension; Lupus; neuropathy; Congestive heart failure; vg1 - PSHx: 08:59 Appendectomy; Cholecystectomy; hysterectomy; vg1 - Immunization history:: Client reports receiving the 2nd dose of the Covid vaccine. - Social history:: Smoking status: Patient denies any tobacco usage or history of. Screenin:00 Abuse screen: Denies threats or abuse. Denies injuries from another. Nutritional bp screening: No deficits noted. Tuberculosis screening: No symptoms or risk factors identified. Fall Risk None identified. Assessment: 09:00 General: SEE TRIAGE NOTE. bp 09:51 Reassessment: No changes from previously documented assessment. Patient and/or family bp updated on plan of care and expected duration. Pain level reassessed. XRAY AT B/S. 11:05 Reassessment: PT RETURNED FROM CT. bp 11:58 Reassessment: D/C ON HOLD FOR IV ABX. bp 13:29 Reassessment: PT D/C HOME VIA W/C WITH FAMILY, DX WITH DIVERTICULOSIS. bp Vital Signs: 08:56 BP 188 / 96; Pulse 60; Resp 22; Pulse Ox 98% on R/A; Weight 118.84 kg; Height 5 ft. 4 vg1 in. (162.56 cm); Pain 7/10; 09:51 BP 161 / 88; Pulse 59; Resp 18; Pulse Ox 99% ; bp 11:05 BP 190 / 109; Pulse 59; Resp 18; Pulse Ox 98% ; bp 11:58 BP 180 / 97; Pulse 56; Resp 15; Pulse Ox 100% ; bp 13:26 BP 158 / 93; Pulse 55; Resp 16; Pulse Ox 99% ; bp 08:56 Body Mass Index 44.97 (118.84 kg, 162.56 cm) vg1 ED Course: 08:44 Patient arrived in ED. as 08:50 Nicholas Lamb NP is PHCP. pm1 08:50 Maurice Zhao MD is Attending Physician. pm1 08:51 Jimbo Stewart, LUCIEN is Primary Nurse. bp 08:59 Triage completed. vg1 08:59 Arm band placed on. vg1 09:00 Patient has correct armband on for positive identification. Bed in low position. Call bp light in reach. Side rails up X2. Adult w/ patient. 09:27 Inserted saline lock: 22 gauge in right antecubital area, using aseptic technique. bp Blood collected. 10:02 XRAY Chest (1 view) In Process Unspecified. EDMS 11:02 Abdomen In Process Unspecified. EDMS 13:27 No provider procedures requiring assistance completed. IV discontinued, intact, bp bleeding controlled, No redness/swelling at site. Pressure dressing applied. Administered Medications: 09:40 Drug: morphine 4 mg Route: IVP; Site: right antecubital; bp 11:44 Follow up: Response: No adverse reaction; Pain is decreased bp 09:40 Drug: Zofran (Ondansetron) 4 mg Route: IVP; Site: right antecubital; bp 11:44 Follow up: Response: No adverse reaction bp 11:57 Drug: Flagyl (metroNIDAZOLE) 500 mg Volume: 100 ml; Route: IVPB; Rate: 200 ml/hr; bp Infused Over: 30 mins; Site: right antecubital; 13:28 Follow up: IV Status: Completed infusion; IV Intake: 100ml bp 11:57 Drug: Cipro (ciprofloxacin) 500 mg Route: PO; bp 13:28 Follow up: Response: No adverse reaction bp Intake: 13:28 IV: 100ml; Total: 100ml. bp Outcome: 11:48 Discharge ordered by MD. pm1 13:27 Discharged to home via wheelchair, with family. bp 13:27 Condition: stable 13:27 Discharge instructions given to patient, family, Instructed on discharge instructions, follow up and referral plans. medication usage, Demonstrated understanding of instructions, follow-up care, medications, Prescriptions given X 2. 13:29 Patient left the ED. bp Signatures: Dispatcher [employer] Rafia Avalos Patrick, BILINGUAL SALES REPRESENTATIVE BILINGUAL SALES REPRESENTATIVE pm1 Jimbo Stewart, RN RN bp Tatiana Rosario, RN RN vg1
--- NOTE | 2022-03-02 11:48 | EDPHYS ---
Physician Documentation [facility] Name: Nhi Santos Age: 71 yrs Sex: Female : 1950 Arrival Date: 03/02/2022 Time: 08:44 Bed 2 Private MD: ED Physician Maurice Zhao HPI: 03/02 09:44 This 71 yrs old Black Female presents to ER via Ambulatory with complaints of pm1 Epigastric Pain, Back Pain, Chest Pain > 30 y/o. 09:44 The patient presents with abdominal pain in the left upper quadrant. Onset: The pm1 symptoms/episode began/occurred 2 week(s) ago. The symptoms radiate to left back. Associated signs and symptoms: Pertinent positives: chest pain, shortness of breath, Pertinent negatives: nausea, vomiting, and diarrhea, dysuria, fever. The symptoms are described as sharp. Modifying factors: the symptoms are aggravated by food. Severity of pain: in the emergency department the pain is actually worse. The patient has been recently seen by a physician: the patient's primary care provider, with similar presenting complaints, and apparently given a diagnosis of muscle strain. Historical: - Allergies: 08:59 Sulfa (Sulfonamide Antibiotics); vg1 - Home Meds: 08:59 amlodipine 10 mg tab 1 tab once daily [Active]; carvedilol 6.25 mg Oral tab 1 tab daily vg1 [Active]; sertraline oral [Active]; losartan-hydrochlorothiazide 100-12.5 mg Oral tab 1 tab once daily [Active]; furosemide 20 mg Oral tab once daily [Active]; omeprazole 40 mg Oral cpDR 1 cap once daily [Active]; [place] 7.5-325 mg oral tab [Active]; gabapentin oral [Active]; Methocarbamol Oral [Active]; - PMHx: 08:59 ADD/ADHD; Arthritis; Hypertension; Lupus; neuropathy; Congestive heart failure; vg1 - PSHx: 08:59 Appendectomy; Cholecystectomy; hysterectomy; vg1 - Immunization history:: Client reports receiving the 2nd dose of the Covid vaccine. - Social history:: Smoking status: Patient denies any tobacco usage or history of. ROS: 13:44 Constitutional: Negative for fever, chills, and weight loss. pm1 13:44 Back: Negative for injury and pain, : Negative for injury, bleeding, discharge, and swelling, MS/Extremity: Negative for injury and deformity, Skin: Negative for injury, rash, and discoloration, Neuro: Negative for headache, weakness, numbness, tingling, and seizure. 13:44 Cardiovascular: Positive for chest pain, of the epigastric area, Negative for edema, palpitations. 13:44 Respiratory: Positive for shortness of breath. 13:44 Abdomen/GI: Positive for abdominal pain, of the epigastric area, Negative for nausea, vomiting, and diarrhea, constipation. 13:44 All other systems are negative. Exam: 13:44 Constitutional: This is a well developed, well nourished patient who is awake, alert, pm1 and in no acute distress. Head/Face: Normocephalic, atraumatic. 13:44 Back: No spinal tenderness. No costovertebral tenderness. Full range of motion. Skin: Warm, dry with normal turgor. Normal color with no rashes, no lesions, and no evidence of cellulitis. MS/ Extremity: Pulses equal, no cyanosis. Neurovascular intact. Full, normal range of motion. 13:44 Eyes: Exam is negative for acute changes, Periorbital structures: appear normal, Pupils: no acute changes, Extraocular movements: no acute changes. 13:44 ENT: Exam is negative for acute changes, Mouth: no acute changes, Lips: normal, moist, Oral mucosa: normal, pink and intact, moist. 13:44 Cardiovascular: Exam negative for acute changes, Rate: normal, Rhythm: regular, Pulses: no pulse deficits are appreciated, Heart sounds: normal. 13:44 Respiratory: Exam negative for acute changes, respiratory distress, shortness of breath. 13:44 Abdomen/GI: Inspection: obese Palpation: soft, in all quadrants, mild abdominal tenderness, in the left upper quadrant. 13:44 Neuro: Exam negative for acute changes, Orientation: is normal, Mentation: is normal, Motor: is normal, moves all fours. Vital Signs: 08:56 BP 188 / 96; Pulse 60; Resp 22; Pulse Ox 98% on R/A; Weight 118.84 kg; Height 5 ft. 4 vg1 in. (162.56 cm); Pain 7/10; 09:51 BP 161 / 88; Pulse 59; Resp 18; Pulse Ox 99% ; bp 11:05 BP 190 / 109; Pulse 59; Resp 18; Pulse Ox 98% ; bp 11:58 BP 180 / 97; Pulse 56; Resp 15; Pulse Ox 100% ; bp 13:26 BP 158 / 93; Pulse 55; Resp 16; Pulse Ox 99% ; bp 08:56 Body Mass Index 44.97 (118.84 kg, 162.56 cm) vg1 MDM: 09:04 Patient medically screened. pm1 11:44 Data reviewed: vital signs. Data interpreted: Pulse oximetry: on room air is 98 %. pm1 Interpretation: normal. 11:46 Counseling: I had a detailed discussion with the patient and/or guardian regarding: the pm1 historical points, exam findings, and any diagnostic results supporting the discharge/admit diagnosis, lab results, radiology results, the need for outpatient follow up, to return to the emergency department if symptoms worsen or persist or if there are any questions or concerns that arise at home. 11:46 ED course: Reviewing labs and CT results with the patient and radiologist's impression. pm1 Patient reports that her pain feels similar to prior diverticulitis. Patient reports onset of pain after eating tomatoes and okra. Will treat the patient with antibiotic therapy and educated on dietary precautions. 03/02 09:08 Order name: CBC with Diff; Complete Time: 10:08 pm1 03/02 09:08 Order name: CMP; Complete Time: 10:08 pm03/02 09:08 Order name: Lipase; Complete Time: 10:08 pm03/02 09:08 Order name: Troponin High Sensitivity; Complete Time: 10:08 pm03/02 09:20 Order name: Magnesium; Complete Time: 10:08 pm03/02 09:20 Order name: NT PRO-BNP; Complete Time: 10:08 pm03/02 09:20 Order name: PT-INR; Complete Time: 10:08 pm03/02 09:20 Order name: XRAY Chest (1 view); Complete Time: 11:19 pm1 03/02 09:27 Order name: Abdomen ; Complete Time: 11:19 EDMS 03/02 09:08 Order name: IV Saline Lock; Complete Time: 09:27 pm1 03/02 09:08 Order name: Labs collected and sent; Complete Time: 09: pm1 03/02 09:08 Order name: EKG; Complete Time: 09:09 pm1 03/02 09:08 Order name: EKG - Nurse/Tech; Complete Time: 09:14 pm1 03/02 09:20 Order name: Cardiac monitoring; Complete Time: 09:27 pm1 03/02 09:20 Order name: O2 Per Protocol; Complete Time: 09:27 pm1 03/02 09:20 Order name: O2 Sat Monitoring; Complete Time: 09:27 pm1 Administered Medications: 09:40 Drug: morphine 4 mg Route: IVP; Site: right antecubital; bp 11:44 Follow up: Response: No adverse reaction; Pain is decreased bp 09:40 Drug: Zofran (Ondansetron) 4 mg Route: IVP; Site: right antecubital; bp 11:44 Follow up: Response: No adverse reaction bp 11:57 Drug: Flagyl (metroNIDAZOLE) 500 mg Volume: 100 ml; Route: IVPB; Rate: 200 ml/hr; bp Infused Over: 30 mins; Site: right antecubital; 13:28 Follow up: IV Status: Completed infusion; IV Intake: 100ml bp 11:57 Drug: Cipro (ciprofloxacin) 500 mg Route: PO; bp 13:28 Follow up: Response: No adverse reaction bp Disposition: 14:24 Co-signature as Attending Physician, Maurice Zhao MD. rn Disposition Summary: 03/02/22 11:48 Discharge Ordered Location: Home pm1 Problem: new pm1 Symptoms: have improved pm1 Condition: Stable pm1 Diagnosis - Abdominal pain, unspecified pm1 Followup: pm1 - With: Emergency Department - When: As needed - Reason: Worsening of condition Followup: pm1 - With: Private Physician - When: 2 - 3 days - Reason: Recheck today's complaints, Continuance of care, Re-evaluation by your physician Discharge Instructions: - Discharge Summary Sheet pm1 - Abdominal Pain, Adult pm1 - Diverticulitis pm1 Forms: - Medication Reconciliation Form pm1 - Thank You Letter pm1 - Antibiotic Education pm1 - Prescription Opioid Use pm1 Prescriptions: - Cipro 500 mg Oral Tablet - take 1 tablet by ORAL route every 12 hours for 10 days; 20 tablet; Refills: 0, pm1 Product Selection Permitted - Flagyl 500 mg Oral Tablet - take 1 tablet by ORAL route every 6 hours for 10 days; 40 tablet; Refills: 0, pm1 Product Selection Permitted Signatures: Dispatcher [employer] Maurice Schneider MD MD rn Nicholas Lamb, FASHION ILLUSTRATOR FASHION ILLUSTRATOR pm1 Jimob Stewart, RN RN Tatiana Harris RN RN vg1
[2022-03-02] MEDS ORDERED: METRONIDAZOLE 500mg IVPB 500 MG/100 ML BAG IV ONE (11:51)
[2022-03-02] MEDS ORDERED: CIPROFLOXACIN HCL 500 MG TAB ONE (11:51)
[2022-03-02 14:01] VITALS: BP 158/93; O2SAT 99
== END 2022-03-02 13:29 | disposition home or self-care (01) ==
LOC: ER 08:40
DX: R10.13 Epigastric pain (principal); R07.9 Chest pain, unspecified; I10 Essential (primary) hypertension; I50.9 Heart failure, unspecified; Z88.2 Allergy status to sulfonamides
CPT/HCPCS: 85025; 36415; 83735; 85610; 84484; 83690; 80053; 83880; 74177; 71045; Q9967; J2405; 96365; 96366; 96375; 99284

== ENCOUNTER 2024-05-04 08:14 | Emergency (ER) | payer OTHER ==
--- OUTSIDE RECORDS SUMMARY | 2024-05-04 08:18 | XMS REPORT | Continuity of Care Document ---
Author Name Unknown Address [address] [facility] [address] [place] [address] [facility] Address [address] [place] [address] Care Team Providers Care Offset Printing Pressmen Name Role Phone Augustin Bishop Primary Care Physician [phone] BRIAN ALSTON Attending Clinician Thom mueller Doctor Unassigned, [place] Attending Clinician U PRUDENCIO Dorantes Attending Clinician Unavailable Prudencio Jolly Attending Clinician [phone] COREEN HEREDIA Attending Clinician Unavailab Coreen Tenorio DO Attending Clinician [phone] Shyanne Freire MD Attending Clinician [phone] SHYANNE FREIRE Attending Clinician Unavailconstanza Maki RN, Jessa Attending Clinician Unavailable JOSE RAMON HIGGINS Attending Clinician Unavailable Sae Billy MD Attending Clinician [phone] Jose Ramon Higgins MD Attending Clinician [phone] Destiney Dhillon Attending Clinician [phone] DESTINEY ZAPIEN Attending Clinician Unavailable Triston Frank DO Attending Clinician [phone] TRISTON FRANK Attending Clinician Unavailable BRIAN ALSTON Admitting Clinician PRUDENCIO Ordonez Admitting Clinician Unavailable COREEN HEREDIA Admitting Clinician Unavailab JOSE RAMON Chapman Admitting Clinician Unavailable Jose Ramon Higgins MD Admitting Clinician [phone] Payers Payer Name Policy Type Policy Number Effective Date Expirati on Date Source [employer] [id number] 2022 00:00:00 Problems Condition Name Condition Details Condition Category Status Onset Date Resolution Date Last Treatment Date Treating Clinician Comments Source Flank pain Flank pain Disease Active 8-11 00:00: 00 [facility] No known active problems No known active problems Disease [facility] Allergies, Adverse Reactions, Alerts Allergy Name Allergy Type Status Severity Reaction(s) Onset Date Inactive Date Treating Clinician Comments Source PREGABAL IN DRUG INGREDI Active High Other-Cmnt 06-07 00:00: 00 [facility] Pregabal in Propensi ty to adverse reaction s to drug Active Other - See comments 06-07 00:00: 00 Swelling of mouth and tongue [facility] Sulfa (Sulfona mide Antibiot ics) Propensi ty to adverse reaction s Active Unknown - See comments 06-25 00:00: 00 [facility] SULFA (SULFONA MIDE ANTIBIOT ICS) Drug Class Active Unknown-Cmnt 06-25 00:00: 00 [facility] Sulfa (Sulfona mide Antibiot ics) Propensi ty to adverse reaction s Active Unknown - See comments 06-25 00:00: 00 [facility] Social History Social Habit Start Date Stop Date Quantity Comments Source History SDOH Alcohol Comment [place] [facility] SDOH Alcohol Std Drinks [facility] History SDOH Alcohol Binge [facility] Exposure to SARS-CoV-2 (event) 2022-12-11 00:00:00 2022-12-21 10:00:00 Not sure [facility] Alcohol intake 2022-12-21 00:00:00 2022-12-21 00:00:00 Lifetime non-drinker (finding) [facility] History of Social function 2022-11-03 00:00:00 2022-11-03 00:00:00 [facility] Tobacco use and exposure 2022-06-17 00:00:00 2022-06-17 00:00:00 Smokeless tobacco non-user [facility] History SDOH Alcohol Frequency 2019-06-25 00:00:00 2019-06-25 00:00:00 1 [facility] Sex Ass[birth year] At 1950 00:00:00 1950 00:00:00 [facility] Smoking Status Start Date Stop Date Source Never smoked tobacco [facility] Medications Ordered Medication Name Filled Medication Name Start Date Stop Date Current Medication? Ordering Clinician Indication Dosage Frequency Signature (SIG) Comments Components Source iopamidol (ISOVUE 370-500 mL) injection 100 mL 12-21 19:15: 00 12-21 19:15 :00 No [id number] 100mL 100 mL, Intravenou s, ONCE, 1 dose, On Tue12/21/22 at 1315, Routine [facility] NaCl 0.9% (NS) bolus infusion 500 mL 12-21 17:15: 00 12-21 20:13 :00 No 500mL at 999 mL/hr, 500 mL, IV Infusion, ONCE, 1 dose, On Tue12/21/22 at 1115, RILEY [facility] FENTanyl PF (SUBLIMAZE (PF)) injection 50 mcg 12-21 17:00: 00 12-21 16:47 :00 No 50ug 50 mcg, Slow IV Push, ONCE, 1 dose, On Tue12/21/22 at 1100, Routine [facility] furosemide 20 mg tablet 2021-11 09:49: 21 Yes 1{tbl} Take 1 tablet by mouth in the morning. [facility] amLODIPine 10 mg tablet 2021-11 09:49: 21 Yes 1{tbl} Take 1 tablet by mouth in the morning. [facility] gabapentin 800 mg tablet 2021-11 09:44: 47 Yes 800mg Take 800 mg by mouth 3 (three) times daily. [facility] hydroxychlo roquine 200 mg tablet 2021-11 09:44: 47 Yes 200mg Take 200 mg by mouth daily. [facility] losartan-hy drochloroth iazide 100-12.5 mg per tablet 2021-11 09:44: 47 Yes 1{tbl} Take 1 tablet by mouth daily. [facility] zolpidem 5 mg tablet 2021-11 09:44: 47 Yes 5mg Take 5 mg by mouth at bedtime as needed for Insomnia. [facility] carvediloL 6.25 mg tablet 2021-11 09:44: 47 Yes 6.25mg Take 6.25 mg by mouth in the morning and 6.25 mg in the evening. Take with meals. [facility] methocarbam oL 500 mg tablet 2021-11 00:00: 00 Yes 1{tbl} Take 1 tablet by mouth in the morning. [facility] HYDROcodone -acetaminop hen 7.5-325 mg per tablet 2021-11 00:00: 00 Yes 1{tbl} Take 1 tablet by mouth in the morning and 1 tablet at noon and 1 tablet in the evening. [facility] pantoprazol e 40 mg EC tablet 2021-11 00:00: 00 Yes 1{tbl} Take 1 tablet by mouth in the morning. [facility] ALPRAZolam 1 mg tablet 2021-11 00:00: 00 Yes 1{tbl} Take 1 tablet by mouth in the morning and 1 tablet at noon and 1 tablet in the evening. [facility] gabapentin 800 mg tablet 06-18 17:18: 40 Yes 800mg Take 800 mg by mouth 3 (three) times daily. [facility] Hydrocodone -Acetaminop hen 7.5-300 mg tablet 06-18 17:18: 40 Yes Take by mouth. [facility] hydroxychlo roquine 200 mg tablet 06-18 17:18: 40 Yes 200mg Take 200 mg by mouth daily. [facility] losartan-hy drochloroth iazide 100-12.5 mg per tablet 06-18 17:18: 40 Yes 1{tbl} Take 1 tablet by mouth daily. [facility] zolpidem 5 mg tablet 06-18 17:18: 40 Yes 5mg Take 5 mg by mouth at bedtime as needed for Insomnia. [facility] amLODIPine 10 mg tablet 06-18 17:18: 40 Yes Take by mouth daily. [facility] carvediloL 6.25 mg tablet 06-18 17:18: 40 Yes 6.25mg Take 6.25 mg by mouth in the morning. [facility] hydrOXYchlo roQUINE (PLAQUENIL) tablet 200 mg 06-18 14:00: 00 Yes 200mg 200 mg, Oral, DAILY, First dose on Tue06/18/22 at 0900, Until Discontinu ed, Routine
Indicatio n: Rheumatic disorder [facility] NaCl 0.9% (NS) injection 10 mL 06-18 12:55: 10 Yes 10mL 10 mL, Slow IV Push, PRN, Starting on Tue06/18/22 at 0755, Until Discontinu ed, Routine, line maintenanc e [facility] lidocaine 1% (PF) (XYLOCAINE) injection 5 mL 06-18 12:55: 10 Yes 5mL 5 mL, Subcutaneo us, PRN, Starting on Tue06/18/22 at 0755, Until Discontinu ed, Routine, Local anesthesia [facility] gabapentin (NEURONTIN) tablet 800 mg 06-18 01:00: 00 Yes 800mg 800 mg, Oral, TID, First dose on Tue06/17/22 at 2000, Until Discontinu ed, Routine [facility] nirmatrelvi r-ritonavir 150 mg x 2- 100 mg tablet 06-18 00:00: 00 Yes [id number] 3{tbl} Take 3 tablets by mouth in the morning and 3 tablets in the evening. [facility] amoxicillin -clavulanat e 875-125 mg per tablet 06-18 00:00: 00 06-26 04:59 :00 No [id number] 1{tbl} Take 1 tablet by mouth in the morning and 1 tablet in the evening. Do all this for 7 days. [facility] enoxaparin (LOVENOX) injection 40 mg 06-17 23:15: 00 Yes 40mg 40 mg, Subcutaneo us, Q24H, First dose on Tue06/17/22 at 1815, Until Discontinu ed, Routine [facility] enoxaparin (LOVENOX) injection 40 mg 06-17 22:00: 00 06-17 21:58 :00 No 40mg 40 mg, Subcutaneo us, DAILY, First dose on Tue06/17/22 at 1700, Until Discontinu ed, Routine [facility] piperacilli n-tazobacta m (ZOSYN) 3.375 g in NaCl 0.9% (NS) 50 mL MINI-BAG 06-17 21:45: 00 06-20 21:44 :00 No 3.375g 3.375 g, IV Piggyback, Q6H ABX, 12 doses, First dose on Tue06/17/22 at 1645, Last dose on Tue06/20/22 at 1045, Administer over 4 Hours, 50 mL
Reas on for Anti-Infec tive: Empiric Therapy for Suspected Infection< br>Empiric Therapy Site: Abdominal< br>Duratio n of therapy: 72 hours [facility] hydroCHLORO thiazide (ESIDRIX) capsule 12.5 mg 06-17 20:30: 00 Yes 12.5mg 12.5 mg, Oral, DAILY, First dose on Tue06/17/22 at 1530, Until Discontinu ed, Routine [facility] losartan (COZAAR) tablet 100 mg 06-17 20:30: 00 Yes 100mg 100 mg, Oral, DAILY, First dose on Tue06/17/22 at 1530, Until Discontinu ed, Routine [facility] carvediloL (COREG) tablet 6.25 mg 06-17 20:30: 00 Yes 6.25mg 6.25 mg, Oral, DAILY, First dose on Shanita 06/17/22 at 1530, Until Discontinu ed, Routine [facility] amLODIPine (NORVASC) tablet 10 mg 06-17 20:30: 00 Yes 10mg 10 mg, Oral, DAILY, First dose on Tue06/17/22 at 1530, Until Discontinu ed, Routine [facility] HYDROcodone -acetaminop hen (NORCO 5) 5-325 mg tablet 1 tablet 06-17 20:21: 09 06-19 20:20 :09 No 1{tbl} 1 tablet, Oral, Q6HPRN, Starting on Shanita 06/17/22 at 1521, Until 06/19/22 at 1520, Routine, Pain (scale 4-6) [facility] acetaminoph en (TYLENOL) tablet 650 mg 06-17 20:21: 06 Yes 650mg 650 mg, Oral, Q6HPRN, Starting on Tue06/17/22 at 1521, Until Discontinu ed, Routine, Pain (scale 1-3) [facility] piperacilli n-tazobacta m (ZOSYN) 3.375 g in NaCl 0.9% (NS) 50 mL MINI-BAG 06-17 17:30: 00 06-17 18:06 :00 No 3.375g 3.375 g, IV Piggyback, ONCE, 1 dose, On Tue06/17/22 at 1230, Administer over 30 Minutes, 50 mL
Reas on for Anti-Infec tive: Documented Infection< br>Documen nette Infection Site: Abdominal< br>Duratio n of Therapy: Other (see Comments) [facility] iopamidol (ISOVUE 370-500 mL) injection 96 mL 06-17 17:30: 00 06-17 17:30 :00 No [id number] 96mL 96 mL, Intravenou s, ONCE, 1 dose, On Tue06/17/22 at 1230, Routine [facility] morpHINE (4 mg/mL) injection 4 mg 06-17 16:45: 00 06-17 16:43 :00 No 4mg 4 mg, Slow IV Push, ONCE, 1 dose, On Shanita 06/17/22 at 1145, STAT [facility] ondansetron (ZOFRAN (PF)) injection 4 mg 06-17 16:45: 00 06-17 16:43 :00 No 4mg 4 mg, Slow IV Push, ONCE, 1 dose, On Shanita 06/17/22 at 1145, RILEY [facility] carvedilol (COREG) 3.125 mg tablet 06-17 15:22: 06-17 00:00 :00 No 3.125mg Take 3.125 mg by mouth 2 (two) times daily with meals. [facility] cloNIDine 0.3 mg tablet 06-17 15:: 06-17 00:00 :00 No .3mg Take 0.3 mg by mouth 3 (three) times daily. [facility] naproxen (NAPROSYN) tablet 500 mg 2019-11 18:30: 00 08-10 17:25 :00 No 500mg 500 mg, Oral, ONCE, 1 dose, 08/10/20 at 1330, Routine [facility] methocarbam oL (ROBAXIN) tablet 1,000 mg 2019-11 18:30: 00 08-10 17:24 :00 No 1000mg 1,000 mg, Oral, ONCE, 1 dose, 08/10/20 at 1330, Routine [facility] dexamethaso ne (DECADRON PHOSPHATE) injection 10 mg 2019-11 18:00: 00 08-10 18:00 :00 No 10mg 10 mg, Intramuscu lar, ONCE, 1 dose, 08/10/20 at 1300, STAT [facility] methocarbam oL (ROBAXIN-75 0) 750 mg tablet 2019-11 00:00: 00 Yes [id number] 750mg Take 1 tablet by mouth every 8 (eight) hours as needed for Pain (scale 4-6) for up to 15 doses. [facility] naproxen 500 mg EC tablet 2019-11 0-04 00:00: 00 06-17 00:00 :00 No [id number] 500mg Take 1 tablet by mouth every 12 (twelve) hours as needed for Pain (scale 4-6) for up to 16 doses. [facility] predniSONE 20 mg tablet 2019-11 004 00:00: 00 08-16 04:59 :00 No [id number] 40mg Take 2 tablets by mouth daily for 5 days. [facility] multivitami n capsule 07-30 00:00: 00 Yes [id number] 1{capsu le} Take 1 capsule by mouth daily. [facility] benzonatate 100 mg capsule 07-30 00:00: 00 Yes [id number] 100mg Take 1 capsule by mouth 3 (three) times daily as needed for Cough. [facility] chlorphenir amine 4 mg tablet 07-30 00:00: 00 Yes [id number] 4mg Take 1 tablet by mouth every 6 (six) hours as needed for Allergies or Runny nose. [facility] multivitami n capsule 07-30 00:00: 00 Yes [id number] 1{capsu le} Take 1 capsule by mouth daily. [facility] calcium-mag nesium-zinc 333-133-8.3 mg Tab 07-30 00:00: 00 Yes [id number] Take as directed for daily dose. [facility] calcium-mag nesium-zinc 333-133-8.3 mg Tab 07-30 00:00: 00 Yes [id number] Take as directed for daily dose. [facility] losartan-hy drochloroth iazide 100-12.5 mg per tablet 06-25 16:05: 41 Yes 1{tbl} Take 1 tablet by mouth daily. [facility] zolpidem 5 mg tablet 06-25 16:05: 41 Yes 5mg Take 5 mg by mouth at bedtime as needed for Insomnia. [facility] carvedilol (COREG) 3.125 mg tablet 06-25 16:05: 40 Yes 3.125mg Take 3.125 mg by mouth 2 (two) times daily with meals. [facility] cloNIDine 0.3 mg tablet 06-25 16:05: 40 Yes .3mg Take 0.3 mg by mouth 3 (three) times daily. [facility] gabapentin 800 mg tablet 06-25 16:05: 40 Yes 800mg Take 800 mg by mouth 3 (three) times daily. [facility] Hydrocodone -Acetaminop hen 7.5-300 mg tablet 06-25 16:05: 40 Yes Take by mouth. [facility] hydroxychlo roquine 200 mg tablet 06-25 16:05: 40 Yes 200mg Take 200 mg by mouth daily. [facility] Vital Signs Vital Name Observation Time Observation Value Comments S maritza Systolic blood pressure 2022-12-21 19:30:00 162 mm[Hg] [facility] Diastolic blood pressure 2022-12-21 19:30:00 94 mm[Hg] [facility] Heart rate 2022-12-21 19:30:00 61 /[facility] Respiratory rate 2022-12-21 19:30:00 21 /min [facility] Oxygen saturation in Arterial blood by Pulse oximetry 2022-12-21 19:30:00 95 /min [facility] Body temperature 2022-12-21 16:01:00 37.22 Mya [facility] Body height 2022-12-21 16:01:00 162.6 cm [facility] Body weight 2022-12-21 16:01:00 115.667 kg [facility] BMI 2022-12-21 16:01:00 43.77 kg/m2 [facility] Systolic blood pressure 2022-11-08 18:45:00 169 mm[Hg] [facility] Diastolic blood pressure 2022-11-08 18:45:00 93 mm[Hg] [facility] Heart rate 2022-11-08 18:45:00 61 /min [facility] Body temperature 2022-11-08 18:45:00 36.5 Mya [facility] Respiratory rate 2022-11-08 18:45:00 18 /min [facility] Body height 2022-11-08 18:45:00 162.6 cm [facility] Body weight 2022-11-08 18:45:00 114.76 kg [facility] BMI 2022-11-08 18:45:00 43.43 kg/m2 [facility] Oxygen saturation in Arterial blood by Pulse oximetry 2022-11-08 18:45:00 100 /min [facility] Systolic blood pressure 2022-11-03 20:10:00 164 mm[Hg] [facility] Diastolic blood pressure 2022-11-03 20:10:00 104 mm[Hg] [facility] Heart rate 2022-11-03 20:10:00 60 /min [facility] Body height 2022-11-03 20:00:00 165.1 cm [facility] Body weight 2022-11-03 20:00:00 114.76 kg [facility] BMI 2022-11-03 20:00:00 42.10 kg/m2 [facility] Oxygen saturation in Arterial blood by Pulse oximetry 2022-11-03 20:00:00 99 /min [facility] Systolic blood pressure 2022-06-18 16:40:00 136 mm[Hg] [facility] Diastolic blood pressure 2022-06-18 16:40:00 59 mm[Hg] [facility] Heart rate 2022-06-18 16:40:00 57 /min [facility] Body temperature 2022-06-18 16:40:00 37.06 Mya [facility] Respiratory rate 2022-06-18 16:40:00 18 /min [facility] Oxygen saturation in Arterial blood by Pulse oximetry 2022-06-18 16:40:00 97 /min [facility] Body height 2022-06-17 20:10:00 165.1 cm [facility] Body weight 2022-06-17 20:10:00 119.477 kg [facility] BMI 2022-06-17 20:10:00 43.83 kg/m2 [facility] Systolic blood pressure 2020-08-10 17:00:00 152 mm[Hg] [facility] Diastolic blood pressure 2020-08-10 17:00:00 90 mm[Hg] [facility] Heart rate 2020-08-10 17:00:00 54 /min [facility] Respiratory rate 2020-08-10 17:00:00 18 /min [facility] Oxygen saturation in Arterial blood by Pulse oximetry 2020-08-10 17:00:00 97 /min [facility] Body weight 2020-08-10 16:37:00 116.574 kg [facility] BMI 2020-08-10 16:37:00 42.77 kg/m2 [facility] Body temperature 2020-08-10 16:34:00 36.89 Mya [facility] Systolic blood pressure 2020-08-10 17:00:00 152 mm[Hg] [facility] Diastolic blood pressure 2020-08-10 17:00:00 90 mm[Hg] [facility] Heart rate 2020-08-10 17:00:00 54 /min [facility] Respiratory rate 2020-08-10 17:00:00 18 /min [facility] Oxygen saturation in Arterial blood by Pulse oximetry 2020-08-10 17:00:00 97 /min [facility] Body weight 2020-08-10 16:37:00 116.574 kg [facility] BMI 2020-08-10 16:37:00 42.77 kg/m2 [facility] Body temperature 2020-08-10 16:34:00 36.89 Mya [facility] Systolic blood pressure 2020-07-30 18:00:00 175 mm[Hg] [facility] Diastolic blood pressure 2020-07-30 18:00:00 86 mm[Hg] [facility] Heart rate 2020-07-30 18:00:00 67 /min [facility] Respiratory rate 2020-07-30 18:00:00 19 /min [facility] Oxygen saturation in Arterial blood by Pulse oximetry 2020-07-30 18:00:00 94 /min [facility] Body temperature 2020-07-30 14:43:00 37.28 Mya [facility] Body weight 2020-07-30 14:43:00 116.574 kg [facility] BMI 2020-07-30 14:43:00 42.77 kg/m2 [facility] Systolic blood pressure 2020-07-30 18:00:00 175 mm[Hg] [facility] Diastolic blood pressure 2020-07-30 18:00:00 86 mm[Hg] [facility] Heart rate 2020-07-30 18:00:00 67 /min [facility] Respiratory rate 2020-07-30 18:00:00 19 /min [facility] Oxygen saturation in Arterial blood by Pulse oximetry 2020-07-30 18:00:00 94 /min [facility] Body temperature 2020-07-30 14:43:00 37.28 Mya [facility] Body weight 2020-07-30 14:43:00 116.574 kg [facility] BMI 2020-07-30 14:43:00 42.77 kg/m2 [facility] Procedures Procedure Date / Time Performed Performing Clinician Source REFERRAL- REQUEST/RESPONSE 2024-01-03 06:01:00 Doctor Unassigned, [place] [facility] CT ABDOMEN PELVIS W CONTRAST 2022-12-21 18:29:18 Prudencio Couch [facility] LIPASE 2022-12-21 16:45:00 Prudencio Couch [facility] TROPONIN I 2022-12-21 16:45:00 Prudencio Couch [facility] COMP. METABOLIC PANEL ([id number]) 2022-12-21 16:45:00 Prudencio Couch [facility] CBC WITH DIFF 2022-12-21 16:45:00 Prudencio Couch [facility] URINALYSIS 2022-12-21 16:45:00 Prudencio Couch [facility] NOTICE OF PRIVACY PRACTICES 2022-12-21 15:53:01 Doctor Unassigned, [place] [facility] CONSENT/REFUSAL FOR DIAGNOSIS AND TREATMENT 2022-12-21 15:52:03 Doctor Unassigned, [place] [facility] EXTERNAL PROVIDER RECORDS 2022-11-18 06:01:00 Do ctor Unassigned, [place] [facility] XR ELBOW <3 VW RIGHT 2022-11-08 19:39:54 Arnold Heredia [facility] XR PELVIS <3 VW 2022-11-08 19:39:54 Coreen Heredia [facility] CONSENT/REFUSAL FOR DIAGNOSIS AND TREATMENT 2022-11-08 18:41:01 Doctor Unassigned, [place] [facility] ASSIGNMENT OF BENEFITS 2022-11-05 21:31:19 Docto r Unassigned, [place] [facility] AUTHORIZATION FOR RELEASE OF PHI 2022-08-20 05:01:00 Doctor Unassigned, [place] [facility] REFERRAL- REQUEST/RESPONSE 2022-08-10 05:01:00 Doctor Unassigned, [place] [facility] US ABDOMEN LIMITED 2022-06-18 02:38:26 Alfonso Olivares [facility] URINALYSIS 2022-06-17 21:29:00 Alfonso Olivares [facility] MAGNESIUM 2022-06-17 21:23:00 Alfonso [facility]ares [facility] FERRITIN SERUM 2022-06-17 21:23:00 Alfonso Olivares [facility] C-REACTIVE PROTEIN 2022-06-17 21:23:00 Alfonso Olivares [facility] TROPONIN I 2022-06-17 21:23:00 Alfonso Olivares [facility] FREE T4 2022-06-17 21:23:00 [facility] THYROID STIMULATING HORMONE 2022-06-17 21:23:00 Alfonso Olivares [facility] HEPATIC FUNCTION PANEL ([id number]) (ALB,T.PRO,BILI T,BU/BC,ALT,AST,ALK PHOS) 2022-06-17 21:23:00 [facility] (NA, K, CL, CO2, GLUCOSE, BUN, CREATININE, CA) 2022-06-17 21:23:00 Alfonso Olivares [facility] LIPID PANEL ([id number])(TOTAL CHOLESTEROL, TRIGLYCERIDES, HDL) 2022-06-17 21:23:00 Alfonso Olivares [facility] IRON PANEL 2022-06-17 21:23:00 Alfonso Olivares [facility] SEDIMENTATION RATE 2022-06-17 21:23:00 Alfonso Olivares [facility] CBC WITH DIFF 2022-06-17 21:23:00 Alfonso Olivares [facility] GLYCOSYLATED HEMOGLOBIN (A1C) 2022-06-17 21:23:00 [facility]R 2022-06-17 21:23:00 Junior Olivares [facility] ACTIVATED PARTIAL THRMPLAS CAROLINA 2022-06-17 21:23:00 [facility] (ID NOW RAPID TESTING) 2022-06-17 17:54:00 Wenceslao [facility] LAB ONLY COVID INTERPRETATION 2022-06-17 17:54:00 Sae Billy [facility] CT ANGIOGRAM CHEST 2022-06-17 16:28:54 Sae Billy [facility] CT ABDOMEN PELVIS W CONTRAST 2022-06-17 16:28:54 Sae Billy [facility] LIPASE 2022-06-17 15:21:00 Sae [facility] TROPONIN I 2022-06-17 15:21:00 Sae Billy [facility] COMP. METABOLIC PANEL ([id number]) 2022-06-17 15:21:00 Sae Billy [facility] CBC WITH DIFF 2022-06-17 15:21:00 Sae Billy [facility] PROTHROMBIN TIME / INR 2022-06-17 15:21:00 Vijay Billy [facility] ACTIVATED PARTIAL THRMPLAS CAROLINA 2022-06-17 15:21:00 Sae Billy [facility] URINALYSIS 2022-06-17 15:21:00 Sae Billy [facility] URINE CULTURE 2022-06-17 15:21:00 Sae Billy [facility] LACTIC ACID WHOLE BLOOD 2022-06-17 15:21:00 Do doug Billy [facility] HB ECG ROUTINE & RHYTHM STRIP 2022-06-17 15:07:40 Sae Billy [facility] CONSENT/REFUSAL FOR DIAGNOSIS AND TREATMENT 2022-06-17 14:51:12 Doctor Unassigned, [place] [facility] HOSPITAL ADMISSION 2022-06-17 05:01:00 Doctor Un assigned, [place] [facility] CONSENT/REFUSAL FOR DIAGNOSIS AND TREATMENT 2020-08-10 16:21:35 Doctor Unassigned, [place] [facility] XR CHEST 1 2020-07-30 17:41:57 Singer [facility] URINALYSIS 2020-07-30 17:14:00 [facility] CT ABDOMEN PELVIS WO CONTRAST 2020-07-30 16:22:[address] [facility] XR CHEST 1 2020-07-30 15:46:13 Singer [facility] COVID-19 (ID NOW RAPID TESTING) 2020-07-30 15:23:[address] [facility] COMP. METABOLIC PANEL ([id number]) 2020-07-30 15:21:[address] [facility] SEDIMENTATION RATE 2020-07-30 15:21:[address] [facility] CBC WITH DIFF 2020-07-30 15:21:[address] [facility] Start Date/Time End Date/Time Encounter Type Admission Type Attending Clinicians Care Facility Care Department Encounter ID Source 2022-11-03 14:00:44 Outpatient R BRIAN [facility] [id number] [facility] 2024-01-03 00:00:00 2024-01-03 00:00:00 Orders Only Doctor Unassigned, [place] [facility] 1.2.840.114 350.1.13.10 4.2.7.2.686 [id number] [id number] [facility] 2022-12-21 10:02:00 2022-12-21 14:28:00 Emergency X [facility] E[facility] [id number] [facility] 2022-12-21 10:02:00 2022-12-21 14:28:00 Emergency Prudencio Couch B [facility] 1.2840.114 350.1.13.10 4.2.7.2.686 [id number] [facility] 2022-11-18 00:00:00 2022-11-18 00:00:00 Orders Only Doctor Unassigned, [place] [facility] 1.0.114 350.1.13.10 4.2.7.2.686 [id number] [id number] [facility] 2022-11-08 12:46:00 2022-11-08 14:27:00 [facility] [id number] [facility] 2022-11-08 12:46:00 2022-11-08 14:27:00 Emergency Coreen Heredia [facility] 1.0.114 350.1.13.10 4.2.7.2.686 [id number] [facility] 2022-11-05 00:00:00 2022-11-05 00:00:00 Orders Only Doctor Unassigned, [place] [facility] 1.0.114 350.1.13.10 4.2.7.2.686 [id number] [id number] [facility] 2022-11-04 00:00:00 2022-11-04 00:00:00 Telephone Shyanne Freire [facility] 1..114 350.1.13.10 4.2.7.2.686 [id number] [facility] 2022-11-03 14:15:00 2022-11-03 15:02:08 Outpatient R SHYANNE FREIRE [facility] [id number] [facility] 2022-11-03 14:15:00 2022-11-03 15:02:08 Office Visit Shyanne Freire [facility] 1.2840.114 350.1.13.10 4.2.7.2.686 [id number] [facility] 2022-08-20 00:00:00 2022-08-20 00:00:00 Orders Only Doctor Unassigned, [place] [facility] 1.2.840.114 350.1.13.10 4.2.7.2.686 [id number] [id number] [facility] 2022-08-10 00:00:00 2022-08-10 00:00:00 Orders Only Doctor Unassigned, [place] [facility] 1.20.114 350.1.13.10 4.2.7.2.686 [id number] [facility] 2022-08-09 00:00:00 2022-08-09 00:00:00 Telephone Shyanne Freire [facility] 1.2840.114 350.1.13.10 4.2.7.2.686 [id number] [facility] 2022-06-21 00:00:00 2022-06-21 00:00:00 Transition of Care Jessa Maki 1.20.114 350.1.13.10 4.2.7.2.686 [id number] [facility] 2022-06-17 09:50:00 2022-06-18 16:00:00 Outpatient JOSE RAMON [facility]CG[facility] [id number] [facility] 2022-06-17 09:50:00 2022-06-18 16:00:00 Emergency Sae Billy Higgins, [facility] 1.2.840.114 350.1.13.10 4.2.7.2.686 [id number] [facility] 2020-08-10 11:31:00 2020-08-10 13:39:00 Emergency Destiney Zapien [facility] 1.2.840.114 350.1.13.10 4.2.7.2.686 [id number] 2020-08-10 11:31:00 2020-08-10 13:39:00 Emergency Destiney Zapien [facility] 1.2.840.114 350.1.13.10 4.2.7.2.686 [id number] [facility] 2020-08-10 11:31:00 2020-08-10 11:31:00 Emergency [facility] ERT [id number] [facility] 2020-07-30 09:45:00 2020-07-30 14:54:00 Emergency Triston Frank [facility] 1.2.840.114 350.1.13.10 4.2.7.2.686 [id number] 2020-07-30 09:45:00 2020-07-30 14:54:00 Emergency Triston Frank [facility] 1.2.840.114 350.1.13.10 4.2.7.2.686 [id number] [facility] 2020-07-30 09:45:00 2020-07-30 09:45:00 Emergency [facility] ERT [id number] [facility] Results Test Description Test Time Test Comments Results Result Co mments Source [facility] ([id number])2022-12-21 17:54:16* Test Item Value Reference Range Interpretation Comme nts NA (test code = 2763625901) 138 mmol/L 135-145 K (test code = 9698290801) 4.0 mmol/L 3.5-5.0 CL (test code = 0808837207) 103 mmol/L 98-108 CO2 TOTAL (test code = 3355029551) 29 mmol/L 23-31 AGAP (test code = 5280363748) 6 2-16 BUN (test code = 0689470068) 24 mg/dL 7-23 H GLUCOSE (test code = 1192310716) 90 mg/dL 70-110 CREATININE (test code = 7751018423) 1.19 mg/dL 0.50-1.04 H TOTAL BILI (test code = 4343662921) 0.5 mg/dL 0.1-1.1 CALCIUM (test code = 0256571497) 9.3 mg/dL 8.6-10.6 T PROTEIN (test code = 1621614499) 7.3 g/dL 6.3-8.2 ALBUMIN (test code = 4552737661) 4.0 g/dL 3.5-5.0 ALK PHOS (test code = 9208240742) 137 U/L 34-122 H ALTv (test code = 1742-6) 20 U/L 5-35 AST(SGOT) (test code = 2190037090) 23 U/L 13-40 eGFR (test code = 4924504925) 44.7 mL/min/1.73m2 IQRA (test code = IQRA) Association of [...] or abnormalities in imaging tests). Lab Interpretation (test code = 93947-6) Abnormal [facility] 17:54:16* Test Item Value Reference Range Interpretation Comme nts LIPASE (test code = 0359039313) 61 U/L 0-220 Lab Interpretation (test cod e = 03696-0) Normal [facility] WITH [id number] 17:45:14* Test Item Value Reference Range Interpretation Comme nts WBC (test code = 6690-2) 8.82 See_Comment [Automated messa ge] The system which generated this result transmitted reference range: 4.30 - 11.10 10*3/?L. The reference range was not used to interpret this result as normal/abnormal. RBC (test code = 789-8) 3.82 See_Comment L [Automated messa ge] The system which generated this result transmitted reference range: 3.93 - 5.25 10*6/?L. The reference range was not used to interpret this result as normal/abnormal. HGB (test code = 718-7) 11.5 g/dL 11.6-15.0 L HCT (test code = 4544-3) 35.4 % 35.7-45.2 L MCV (test code = 787-2) 92.7 fL 80.6-95.5 MCH (test code = 785-6) 30.1 pg 25.9-32.8 MCHC (test code = 786-4) 32.5 g/dL 31.6-35.1 RDW-SD (test code = 18040-0) 46.9 fL 39.0-49.9 RDW-CV (test code = 788-0) 13.8 % 12.0-15.5 PLT (test code = 777-3) 271 See_Comment [Automated [employer]] The system which generated this result transmitted reference range: 166 - 358 10*3/?L. The reference range was not used to interpret this result as normal/abnormal. MPV (test code = 85185-6) 11.3 fL 9.5-12.9 NRBC/100 WBC (test code = 3268205652) 0.0 See_Comment [Automated [employer] ssage] The system which generated this result transmitted reference range: 0.0 - 10.0 /100 WBCs. The reference range was not used to interpret this result as normal/abnormal. NRBC x10^3 (test code = 5678757335) See_Comment [Automated [employer] ge] The system which generated this result transmitted reference range: 10*3/?L. The reference range was not used to interpret this result as normal/abnormal. GRAN MAT (NEUT) % (test code = 770-8) 73.6 % IMM GRAN % (test code = 5717540607) 0.70 % LYMPH % (test code = 736-9) 15.5 % MONO % (test code = 5905-5) 5.8 % EOS % (test code = 713-8) 3.9 % BASO % (test code = 706-2) 0.5 % GRAN MAT x10^3(ANC) (test code = 6693594710) 6.50 10*3/uL 1.88-7.09 IMM GRAN x10^3 (test code = 0368491484) 0.06 10*3/uL 0.00-0.06 LYMPH x10^3 (test code = 731-0) 1.37 10*3/uL 1.32-3.29 MONO x10^3 (test code = 742-7) 0.51 10*3/uL 0.33-0.92 EOS x10^3 (test code = 711-2) 0.34 10*3/uL 0.03-0.39 BASO x10^3 (test code = 704-7) 0.04 10*3/uL 0.01-0.07 Lab Interpretation (test code = 27315-9) Abnormal [facility] [id number] 15:57:54* Test Item Value Reference Range Interpretation Comments TROPONIN I (test code = 5350611958) 0.040 ng/mL See_Comment H [Automated message] The system which generated this result transmitted reference range: <=0.034. The reference range was not used to interpret this result as normal/abnormal. IQRA (test code = IQRA) Reference (Normal) Range (defined by the 99th percentile reference limit): <= 0.034 ng/mL Note: Cardiac troponin begins to rise 3-4 hours after the onset of ischemia. Repeat in 4-6 hours if the sample was drawn within 3-4 hours of the onset of the symptom and found normal. Diagnosis of myocardial injury is made with acute changes in cTn concentrations with at least one serial sample above the 99th percentile upper reference limit (URL), taken together with the patient's clinical presentation. Biotin has been reported to cause a negative bias, interpret results relative to patient's use of biotin. Lab Interpretation (test code = 81856-8) Abnormal [facility] America[facility]IV[facility] PARTIAL THRMPLAS [id number] 15:56:32* Test Item Value Reference Range Interpretation Comme [facility] AP[facility] Patient (test code = 3173-2) See_Comment [Automated message] The system which generated this result transmitted reference range: 23 - 38 Seconds. The reference range was not used to interpret this result as normal/abnormal. IQRA (test code = IQRA) [facility] patient population mean normal value for aPTT is 30 seconds. Lab Interpretation (test code = 45952-9) Normal [facility] America[facility]OM[facility] TIME / [id number] 15:54:30* Test Item Value Reference Range Interpretation Comme [facility] PROTIME PATIENT (test code = 5964-2) See_Comment [Automated messa ge] The system which generated this result transmitted reference range: 12.0 - 14.7 Seconds. The reference range was not used to interpret this result as normal/abnormal. INR (test code = 6301-6) Normal INR <1.1; Warfarin Therapeutic range 2.0 to 3.0 or 2.5 to 3.5, depending upon the indications. Lab Interpretation (test code = 93816-0) Normal [facility] MET[facility]OLIC PANEL (74694)2022-06-17 15:46:54* Test Item Value Reference Range Interpretation Comme nts NA (test code = 8779685942) 140 mmol/L 135-145 K (test code = 3801948338) 4.2 mmol/L 3.5-5 CL (test code = 3906636348) 104 mmol/L 98-108 CO2 TOTAL (test code = 5318392393) 30 mmol/L 23-31 AGAP (test code = 1432683487) 2-16 BUN (test code = 0430064076) 20 mg/dL 7-23 GLUCOSE (test code = 9240213593) 107 mg/dL 70-110 CREATININE (test code = 5447546746) 0.93 mg/dL 0.5-1.04 TOTAL BILI (test code = 4438591136) 0.3 mg/dL 0.1-1.1 CALCIUM (test code = 1851699589) 9.3 mg/dL 8.6-10.6 T PROTEIN (test code = 4979739335) 7.8 g/dL 6.3-8.2 ALBUMIN (test code = 0342707929) 4.3 g/dL 3.5-5 ALK PHOS (test code = 6455655006) 135 U/L 34-122 H ALTv (test code = 1742-6) 23 U/L 5-35 AST(SGOT) (test code = 9865493510) 29 U/L 13-40 eGFR (test code = 7554661178) mL/min/1.73m2 IQRA (test code = IQRA) Association of [...] or abnormalities in imaging tests). Lab Interpretation (test code = 24413-3) Abnormal [facility]2022-08-11 15:46:34* Test Item Value Reference Range Interpretation Comme nts LIPASE (test code = 8548053758) 69 U/L 0-220 Lab Interpretation (test cod e = 78581-9) Normal [facility] WITH [id number] 15:35:50* Test Item Value Reference Range Interpretation Comme nts WBC (test code = 6690-2) See_Comment [Automated [employer]] The system which generated this result transmitted reference range: 4.30 - 11.10 10*3/?L. The reference range was not used to interpret this result as normal/abnormal. RBC (test code = 789-8) See_Comment L [Automated [employer]] The system which generated this result transmitted reference range: 3.93 - 5.25 10*6/?L. The reference range was not used to interpret this result as normal/abnormal. HGB (test code = 718-7) 11.6 g/dL 11.6-15 HCT (test code = 4544-3) 36.0 % 35.7-45.2 MCV (test code = 787-2) 92.5 fL 80.6-95.5 MCH (test code = 785-6) 29.8 pg 25.9-32.8 MCHC (test code = 786-4) 32.2 g/dL 31.6-35.1 RDW-SD (test code = 52692-7) 47.5 fL 39-49.9 RDW-CV (test code = 788-0) 14.0 % 12-15.5 PLT (test code = 777-3) See_Comment [Automated [employer]] The system which generated this result transmitted reference range: 166 - 358 10*3/?L. The reference range was not used to interpret this result as normal/abnormal. MPV (test code = 63407-9) 10.9 fL 9.5-12.9 NRBC/100 WBC (test code = 7993107874) See_Comment [Automated [employer] ssage] The system which generated this result transmitted reference range: 0.0 - 10.0 /100 WBCs. The reference range was not used to interpret this result as normal/abnormal. NRBC x10^3 (test code = 6475235391) See_Comment [Automated [employer]] The system which generated this result transmitted reference range: 10*3/?L. The reference range was not used to interpret this result as normal/abnormal. GRAN MAT (NEUT) % (test code = 770-8) 77.2 % IMM GRAN % (test code = 1543059662) 0.50 % LYMPH % (test code = 736-9) 13.4 % MONO % (test code = 5905-5) 5.4 % EOS % (test code = 713-8) 3.0 % BASO % (test code = 706-2) 0.5 % GRAN MAT x10^3(ANC) (test code = 3284718568) 6.27 10*3/uL 1.88-7.09 IMM GRAN x10^3 (test code = 6355090658) 0.04 10*3/uL 0-0.06 LYMPH x10^3 (test code = 731-0) 1.09 10*3/uL 1.32-3.29 L MONO x10^3 (test code = 742-7) 0.44 10*3/uL 0.33-0.92 EOS x10^3 (test code = 711-2) 0.24 10*3/uL 0.03-0.39 BASO x10^3 (test code = 704-7) 0.04 10*3/uL 0.01-0.07 Lab Interpretation (test code = 58447-5) Abnormal [facility] Acid Whole [id number] 15:25:46* Test Item Value Reference Range Interpretation Comme nts LACTIC ACID (test code = 9410095541) 1.35 mmol/L 0.5-2.2 Lab Interpretation (test cod e = 60388-2) Normal [facility]2020-09-23 18:00:00* Test Item Value Reference Range Interpretation Comme nts APPEARANCE (test code = 3805389176) Hazy Clear A COLOR (test code = 0973457132) Yellow Yellow PH (test code = 6934383898) 4.8-8.0 SP GRAVITY (test code = 8353225256) 1.003-1.030 GLU U QUAL (test code = 4273554259) 50 mg/dL Normal A BLOOD (test code = 3986823392) Negative Negative INTERFERENCE FRO M ASCORBIC ACID MAY CAUSE FALSE NEGATIVE RESULT KETONES (test code = 1308078410) Negative Negative PROTEIN (test code = 2887-8) Negative Negative UROBILIN (test code = 5889445330) Normal Normal BILIRUBIN (test code = 1809412039) Negative Negative NITRITE (test code = 3712449798) Negative Negative LEUK OMAR (test code = 0311101031) Negative Negative RBC/HPF (test code = 6736988132) See_Comment [Automated [employer]] The system which generated this result transmitted reference range: 0 - 3 HPF. The reference range was not used to interpret this result as normal/abnormal. WBC/HPF (test code = 3445819580) See_Comment [Automated [employer] ge] The system which generated this result transmitted reference range: 0 - 5 HPF. The reference range was not used to interpret this result as normal/abnormal. BACTERIA (test code = 4218936435) Many Negative A MUCOUS (test code = 0137588276) Slight Negative LPF A SQ EPITH (test code = 5594965963) HPF HYAL CAST (test code = 6999909068) See_Comment H [Automated messa ge] The system which generated this result transmitted reference range: <=2 LPF. The reference range was not used to interpret this result as normal/abnormal. Lab Interpretation (test code = 77166-6) Abnormal [facility] 1 [id number] 17:46:29HISTORY: Reevaluate right upper lobe infiltrate. FINDINGS: Lateral view of the chest showed no abnormality in the lungs.Subtle note made of cholecystectomy.[facility], Radiant Results Inft User - 07/30/2020 12:47 PM CDTHISTORY: Reevaluate right upper lobe infiltrate.FINDINGS: Lateral view of the chest showed no abnormality in the lungs.Subtle note made of cholecystectomy.[facility] America[facility]BDOM[facility] PELVIS WO [id number] 16:42:17CT Abdomen and Pelvis without contrast. CLINICAL HISTORY: ?FLANK PAIN. R/O RENAL STONES. TECHNIQUE: Multidetector helical CT acquisition was obtained from [...] and Spleen: S/P cholecystectomy. Grossly unremarkableliver and spleen.Possible 12 mm accessory splenule near the hilum of thespleen. Peritoneum: ?No free air or free fluid. No lymphadenopathy. Pancreas and Adrenals: ?Unremarkable pancreas and adrenal glands. Kidneys and Ureters: ?No visible calculi in the renal collecting systems. No hydroureter or hydronephrosis. Multiple low-density lesions in thekidney, largest is 5.5 cm. Vessels: Mild diffuse atherosclerosis. Re troperitoneum: No abnormal fluid or lymphadenopathy. Bowel: Generalized diverticulosis of the largebowel without any acutechanges. Appendix not visualized, however, no signs of acute appendicitisareseen. Small bowel gas pattern is unremarkable. Bladder ?and Reproductive Organs: S/P hysterectomy. No gross pathology inthe underdistended urinary bladder. Bones: Lumbar levoscoliosis and mild degenerative spondylosis. Soft tissues: Irregular shaped 2 x 1 cm fat-containing umbilical hernia. CONCLUSION:1. No kidney stones or obstructive hydronephrosis.2. Multiple lesions in the right kidney could be cysts which may be furtherevaluated by CT urogram study. There is persistent history of flank painand/or hematuria.3. S/P cholecystectomy and hysterectomy.4. Ill-defined 5 mm nodule suspected in the left lower lung (9:148).Noncontrast enhanced CT scan of the chest may be obtained as nonemergentoutpatient study for complete evaluation. [facility], Radiant Results Inft User - 07/30/2020 11:43 AM CDTCT Abdomen and Pelvis without contrast.CLINICAL HISTORY: FLANK PAIN. R/O RENAL STONES.TECHNIQUE: Multidetector helical CT acquisition was obtained from the lungbases to the greater trochanters without oral and IV contrast. The imageswere reviewed in lung, bone, and soft tissue windows.FINDINGS: Absenceof intravenous contrast limits evaluation of the solidorgans. Evaluation of the bowel is also limited by lack of oral contrast. Lower lungs: Ill-defined hazy 5 mm nodule in the left lower lung. Verysmall pericardial effusion noted. No pleural effusion effusion. Shortsliding hiatal hernia suspected.Liver, Gallbladder and Spleen: S/P cholecystectomy. Grossly unremarkableliver and spleen. Possible 12 mm accessory splenule near the hilum of thespleen.Peritoneum: No free air or free fluid. No lymphadenopathy.Pancreas and Adrenals: Unremarkable pancreas and adrenal glands.Kidneys and Ureters: No vis ible calculi in the renal collecting systems. No hydroureter or hydronephrosis. Multiple low-density lesions in thekidney, largest is 5.5 cm.Vessels: Mild diffuse atherosclerosis.Retroperitoneum: No abnormal fluid or lymphadenopathy.Bowel: Generalized diverticulosis of the large bowel without any acutechanges. Appendix not visualized, however, no signs of acute appendicitisare seen. Small bowel gas pattern is unremarkable.Bladder and Reproductive Organs: S/P hysterectomy. No gross pathology inthe underdistended urinary bladder. Bones: Lumbar levoscoliosis and mild degenerative spondylosis.Soft tissues: Irregular shaped 2 x 1 cm fat-containing umbilical hernia.CONCLUSION:1. No [...] be obtained as nonemergentoutpatient study for complete evaluation.[facility]. METABOLIC PANEL (65350)2020-07-30 16:26:00* Test Item Value Reference Range Interpretation Comme nts NA (test code = 6828757749) 138 mmol/L 135-145 K (test code = 4871751233) 3.6 mmol/L 3.5-5 CL (test code = 1487516603) 102 mmol/L 98-108 CO2 TOTAL (test code = 6891300069) 29 mmol/L 23-31 AGAP (test code = 5969264388) 2-16 BUN (test code = 0536411248) 14 mg/dL 7-23 GLUCOSE (test code = 0599182816) 104 mg/dL 70-110 CREATININE (test code = 6766958317) 1.10 mg/dL 0.5-1.04 H TOTAL BILI (test code = 0402308254) 0.4 mg/dL 0.1-1.1 CALCIUM (test code = 0111956968) 9.2 mg/dL 8.6-10.6 T PROTEIN (test code = 9796214902) 7.2 g/dL 6.3-8.2 ALBUMIN (test code = 2454877003) 3.7 g/dL 3.5-5 ALK PHOS (test code = 9118486656) 132 U/L 34-122 H ALTv (test code = 1742-6) 16 U/L 5-35 AST(SGOT) (test code = 3430270002) 27 U/L 13-40 eGFR Calculation (Non-) (test code = 5377497537) mL/min/1.73m2 eGFR Calculation () (test code = 7466172660) mL/min/1.73m2 IQRA (test code = IQRA) Association of [...] or abnormalities in imaging tests). Lab Interpretation (test code = 72948-3) Abnormal [facility] AmericaSEDIMENTATION [id number] 16:09:00* Test Item Value Reference Range Interpretation Comme nts ESR (test code = 3467025984) See_Comment H [Automated messa ge] The system which generated this result transmitted reference range: 0 - 20 mm/HR. The reference range was not used to interpret this result as normal/abnormal. Lab Interpretation (test code = 15282-3) Abnormal [facility] CHEST 1 [id number] 15:52:41HISTORY: Cough. TECHNIQUE: Portable AP semierect view of the chest is obtained. FINDINGS: Focal congestion is seen in the right upper lobe, approximately1.8 cm size. Minimal congestion noted in the right lower lung. Nopneumothorax or pleural effusion or detected. Borderline cardiomegalynoted. Thoracic dextroscoliosis and mild degenerative spondylosis is noted. CONCLUSIONS: Subtle signs of early de veloping infiltrate in right upperlobe. Follow-up PA and lateral views of the chest should be obtained toconfirm complete resorption of the abnormal findings in right upper lobe.[facility], Radiant ResultsInft User - 07/30/2020 10:53 AM CDTHISTORY: Cough.TECHNIQUE: Portable AP semierect view of the chest is obtained.FINDINGS: Focal congestion is seen in the right [...] of the abnormal findings in right upper lobe.[facility] COVID-19 (ID NOW RAPID TESTING)2020-07-30 15:47:00* Test Item Value Reference Range Interpretation Comme nts SARS-CoV-2 Rapid ID NOW (test code = 33807-8) Positive Not Detected A IQRA (test code = IQRA) ID NOW COVID-19 As say is an isothermal nucleic acid amplification test intended for the qualitative detection of nucleic acid from SARS-CoV-2 viral RNA in nasopharyngeal (MECHANICAL FITTER) specimens. It is used under Emergency Use [...] patient testing if clinically indicated. Lab Interpretation (test code = 60566-5) Abnormal [facility] WITH [id number] 15:32:00* Test Item Value Reference Range Interpretation Comme nts WBC (test code = 6690-2) See_Comment [Automated [employer]] The system which generated this result transmitted reference range: 4.30 - 11.10 10*3/?L. The reference range was not used to interpret this result as normal/abnormal. RBC (test code = 789-8) See_Comment L [Automated [employer]] The system which generated this result transmitted reference range: 3.93 - 5.25 10*6/?L. The reference range was not used to interpret this result as normal/abnormal. HGB (test code = 718-7) 11.3 g/dL 11.6-15 L HCT (test code = 4544-3) 34.7 % 35.7-45.2 L MCV (test code = 787-2) 89.4 fL 80.6-95.5 MCH (test code = 785-6) 29.1 pg 25.9-32.8 MCHC (test code = 786-4) 32.6 g/dL 31.6-35.1 RDW-SD (test code = 14148-3) 44.9 fL 39-49.9 RDW-CV (test code = 788-0) 13.8 % 12-15.5 PLT (test code = 777-3) See_Comment [Automated messa ge] The system which generated this result transmitted reference range: 166 - 358 10*3/?L. The reference range was not used to interpret this result as normal/abnormal. MPV (test code = 37381-5) 10.6 fL 9.5-12.9 NRBC/100 WBC (test code = 6648449340) See_Comment [Automated [employer] ssage] The system which generated this result transmitted reference range: 0.0 - 10.0 /100 WBCs. The reference range was not used to interpret this result as normal/abnormal. NRBC x10^3 (test code = 3300813284) <0.01 See_Comment [Automated messa ge] The system which generated this result transmitted reference range: 10*3/?L. The reference range was not used to interpret this result as normal/abnormal. GRAN MAT (NEUT) % (test code = 770-8) 69.7 % IMM GRAN % (test code = 0919535474) 0.40 % LYMPH % (test code = 736-9) 17.0 % MONO % (test code = 5905-5) 12.3 % EOS % (test code = 713-8) 0.2 % BASO % (test code = 706-2) 0.4 % GRAN MAT x10^3(ANC) (test code = 9306931855) 3.97 10*3/uL 1.88-7.09 IMM GRAN x10^3 (test code = 6689166005) <0.03 0-0.06 LYMPH x10^3 (test code = 731-0) 0.97 10*3/uL 1.32-3.29 L MONO x10^3 (test code = 742-7) 0.70 10*3/uL 0.33-0.92 EOS x10^3 (test code = 711-2) <0.03 0.03-0.39 L BASO x10^3 (test code = 704-7) <0.03 0.01-0.07 Lab Interpretation (test code = 66330-6) Abnormal [facility]"
[2024-05-04] MEDS ORDERED: TRAMADOL HCL 50 MG TAB ONE (08:48)
[2024-05-04] MEDS ORDERED: IBUPROFEN 400 MG TAB ONE (08:55)
[2024-05-04] MEDS ORDERED: IBUPROFEN 200 MG TAB PO ONE (08:55)
[2024-05-04] MEDS ORDERED: HYDROCODONE/APAP 5/325 MG TAB ONE (08:55)
--- NOTE | 2024-05-04 11:26 | RAD REPORT ---
EXAM DESCRIPTION: RAD - Knee Right 2 View - 05/04/2024 9:28 am CLINICAL HISTORY: PAIN COMPARISON: Knee Right 3 View dated 10/03/2015 TECHNIQUE: Right knee, 3 views. FINDINGS: No fracture, dislocation or periosteal reaction.No joint effusion seen. Moderate degenerat екатерина changes. No soft tissue abnormality. IMPRESSION: No acute osseous abnormality. Moderate degenerative changes.
--- NOTE | 2024-05-04 11:26 | RAD REPORT ---
EXAM DESCRIPTION: RAD - Femur Right - 05/04/2024 9:28 am CLINICAL HISTORY: PAIN COMPARISON: No comparisons TECHNIQUE: Right femur, 2 views. FINDINGS: No fracture is identified. There is no dislocation or periosteal reaction noted. Up to mod erate knee joint degenerative changes. No acute or suspicious bony finding. IMPRESSION: Negative right femur examination.
--- NOTE | 2024-05-04 11:46 | ER ---
Nurse's Notes [facility] Name: Nhi Santos Age: 73 yrs Sex: Female : 1950 Arrival Date: 05/04/2024 Time: 08:14 Bed 6 Private MD: Diagnosis: Pain in right lower leg Presentation: 05/04 08:44 Chief complaint: [place] a pop behind left knee when walking yesterday, pain now radiates hb from back of knee to upper thigh. Coronavirus screen: At this time, the client does not indicate any symptoms associated with coronavirus-19. Ebola Screen: No symptoms or risks identified at this time. Initial Sepsis Screen: Does the patient meet any 2 criteria? No. Patient's initial sepsis screen is negative. Does the patient have a suspected source of infection? No. Patient's initial sepsis screen is negative. Risk Assessment: Do you want to hurt yourself or someone else? Patient reports no desire to harm self or others. Onset of symptoms was May 03, 2024. 08:44 Method Of Arrival: Wheelchair hb 08:47 Acuity: TESSY 3 hb Historical: - Allergies: 08:46 Sulfa (Sulfonamide Antibiotics); hb - PMHx: 08:46 ADD/ADHD; Arthritis; Hypertension; Congestive heart failure; neuropathy; Lupus; hb - PSHx: 08:46 Appendectomy; Cholecystectomy; hysterectomy; spider bite sx; hb - Immunization history:: Adult Immunizations up to date. - Infectious Disease History:: Denies. - Social history:: Smoking status: Patient denies any tobacco usage or history of. - Family history:: not pertinent. - Hospitalizations: : No recent hospitalization is reported. Screenin:01 [facility] ED Fall Risk Assessment (Adult) History of falling in the last 3 months, mb9 including since admission No falls in past 3 months (0 pts) Confusion or Disorientation No (0 pts) Intoxicated or Sedated No (0 pts) Impaired Gait Yes (1 pt) Mobility Assist Device Used Yes (1 pt) Altered Elimination No (0 pt) Score/Fall Risk Level 3 or more points = High Risk Oriented to surroundings, Maintained a safe environment, Educated pt \T\ family on fall prevention, incl call for assistance when getting out of bed, Assessed \T\ reinforced patient's understanding of fall precautions. Abuse screen: Denies threats or abuse. Nutritional screening: No deficits noted. Tuberculosis screening: No symptoms or risk factors identified. Assessment: 08:58 General: Appears in no apparent distress. Behavior is calm, cooperative. Pain: mb9 Complains of pain in right leg Pain does not radiate. Pain currently is 8 out of 10 on a pain scale. Quality of pain is described as throbbing, Pain began suddenly, Is continuous, Aggravated by increased activity, repositioning. Neuro: Raphael Agitation-Sedation Scale (RASS): 0 - Alert and Calm Level of Consciousness is awake, alert, obeys commands, Oriented to person, place, time, situation, Appropriate for age. Cardiovascular: Patient's skin is warm and dry. Cardiovascular: Pulses are all present. Respiratory: Airway is patent Respiratory effort is even, unlabored, Respiratory pattern is regular, symmetrical. GI: No signs and/or symptoms were reported involving the gastrointestinal system. : No signs and/or symptoms were reported regarding the genitourinary system. EENT: No signs and/or symptoms were reported regarding the EENT system. Derm: Skin is pink, warm \T\ dry. Musculoskeletal: Range of motion: intact in all extremities. 10:38 Reassessment: No changes from previously documented assessment. Patient and/or family mb9 updated on plan of care and expected duration. Pain level reassessed. Patient is alert, oriented x 3, equal unlabored respirations, skin warm/dry/pink. Patient states feeling better. Patient states symptoms have improved. Vital Signs: 08:44 Pulse 62; Resp 18; Temp 97.9; Pulse Ox 98% on R/A; Pain 10/10; hb 09:00 BP 180 / 78; Weight 113.4 kg; Height 5 ft. 4 in. ; mb9 11:03 BP 166 / 90; Pulse 58; Resp 18; Pulse Ox 97% on R/A; mb9 09:00 Body Mass Index 42.91 (113.40 kg, 162.56 cm) mb9 08:44 Pain Scale: Adult hb ED Course: 08:16 Patient arrived in ED. mr 08:40 Maurice Zhao MD is Attending Physician. rn 08:41 Norma Hutton RN is Primary Nurse. mb9 08:48 Triage completed. hb 08:48 Arm band placed on. hb 09:01 Placed in gown. Bed in low position. Call light in reach. Side rails up X 1. Provided mb9 Education on: press call light if needing anything. Client placed on continuous cardiac and pulse oximetry monitoring. NIBP monitoring applied. Door closed. Noise minimized. Warm blanket given. Pillow given. 09:01 No provider procedures requiring assistance completed. mb9 09:26 Patient taken to ultrasound. via wheelchair. mb9 09:30 XRAY Knee RIGHT 2 view In Process Unspecified. EDMS 09:30 XRAY Femur RIGHT In Process Unspecified. EDMS 09:47 Extremity Venous Uni Ltd US In Process Unspecified. EDMS 10:38 Assisted to bathroom. mb9 11:51 Patient did not have IV access during this emergency room visit. mb9 Administered Medications: 08:54 Not Given (Patient Refused; pt states it makes her feel SOB): [id number] mg PO once hb 08:58 Drug: HYDROcodone-acetaminophen PO 5 mg-325 mg 1 tabs PO once Route: PO; mb9 09:43 Follow up: Response: No adverse reaction mb9 08:58 Drug: Ibuprofen PO 600 mg PO once Route: PO; mb9 09:43 Follow up: Response: No adverse reaction mb9 Medication: 09:01 VIS not applicable for this client. mb9 Outcome: 11:46 Discharge ordered by . rn 11:54 Discharged to home via wheelchair, with family, mb9 11:54 Condition: stable 11:54 Discharge instructions given to patient, Instructed on discharge instructions, follow up and referral plans. Demonstrated understanding of instructions, follow-up care, medications, Prescriptions given X 2, 11:54 Patient left the ED. mb9 Signatures: Dispatcher [employer] JOHNFL Norma Wright, Reg Reg Maurice Barajas MD MD rn Baxter, Heather, RN RN hb Breneman, Mary Beth RN RN alison9 Corrections: (The following items were deleted from the chart) 11:05 11:03 Pulse 58bpm; Resp 18bpm; Pulse Ox 97% RA; mb9 mb9
--- NOTE | 2024-05-04 11:47 | EDPHYS ---
Physician Documentation [facility] Name: Nhi Santos Age: 73 yrs Sex: Female : 1950 Arrival Date: 05/04/2024 Time: 08:14 Bed 6 Private MD: ED Physician Maurice Zhao HPI: 05/04 09:08 This 73 yrs old Black Female presents to ER via Wheelchair with complaints of Leg Pain. rn 09:09 The patient presents with pain, that is acute. The complaints affect the right rn hamstring. Onset: The symptoms/episode began/occurred yesterday. Modifying factors: The symptoms are alleviated by remaining still, the symptoms are aggravated by movement, weight bearing, bending knee. Associated signs and symptoms: Pertinent negatives fever, numbness, tingling, warmth, weakness. Severity of symptoms: At their worst the symptoms were moderate, in the emergency department the symptoms are unchanged. The patient has not experienced similar symptoms in the past. Patient reports right leg pain that began yesterday while stepping out of vehicle and stepping onto a curb. Denies fall or direct trauma. Denies weakness or numbness. Patient reports pain to the back of the right knee and hamstring region. No hip pain. No back pain. Has had similar pain but on the left side.. Historical: - Allergies: 08:46 Sulfa (Sulfonamide Antibiotics); hb - PMHx: 08:46 ADD/ADHD; Arthritis; Hypertension; Congestive heart failure; neuropathy; Lupus; hb - PSHx: 08:46 Appendectomy; Cholecystectomy; hysterectomy; spider bite sx; hb - Immunization history:: Adult Immunizations up to date. - Infectious Disease History:: Denies. - Social history:: Smoking status: Patient denies any tobacco usage or history of. - Family history:: not pertinent. - Hospitalizations: : No recent hospitalization is reported. ROS: 09:09 Constitutional: Negative for fever, chills, and weight loss, Cardiovascular: Negative rn for chest pain, palpitations, and edema, Respiratory: Negative for shortness of breath, cough, wheezing, and pleuritic chest pain, Back: Negative for injury and pain, MS/Extremity: Positive for right leg pain Neuro: Negative for headache, weakness, numbness, tingling, and seizure, Exam: 09:09 Constitutional: This is a well developed, well nourished patient who is awake, alert, rn and in no acute distress. Cardiovascular: Regular rate and rhythm. No pulse deficits. Respiratory: No increased work of breathing, no retractions or nasal flaring. Abdomen/GI: Soft, non-tender MS/ Extremity: Pulses equal, no cyanosis. Neurovascular intact. No focal swelling or masses. No erythema or warmth. Mild tenderness right hamstring and lateral thigh and just proximal to popliteal fossa. No calf tenderness. Neuro: Awake and alert, GCS 15 Vital Signs: 08:44 Pulse 62; Resp 18; Temp 97.9; Pulse Ox 98% on R/A; Pain 10/10; hb 09:00 BP 180 / 78; Weight 113.4 kg; Height 5 ft. 4 in. ; mb9 11:03 BP 166 / 90; Pulse 58; Resp 18; Pulse Ox 97% on R/A; mb9 09:00 Body Mass Index 42.91 (113.40 kg, 162.56 cm) mb9 08:44 Pain Scale: Adult hb MDM: 08:40 Patient medically screened. rn 11:45 Differential diagnosis: closed fracture, contusion, Strain, radiculopathy. Data rn reviewed: vital signs, nurses notes, radiologic studies, plain films, ultrasound, and as a result, I will discharge patient. Counseling: I had a detailed discussion with the patient and/or guardian regarding the historical points, exam findings, and any diagnostic results supporting the discharge/admit diagnosis, radiology results, the need for outpatient follow up, to return to the emergency department if symptoms worsen or persist or if there are any questions or concerns that arise at home. Special discussion: I discussed with the patient/guardian in detail that at this point there is no indication for admission to the hospital. It is understood, however, that if the symptoms persist or worsen the patient needs to return immediately for re-evaluation. 05/04 08:46 Order name: Extremity Venous Uni Ltd US; Complete Time: 11:50 rn 05/04 08:46 Order name: XRAY Knee RIGHT 2 view; Complete Time: 11:41 rn 05/04 08:46 Order name: XRAY Femur RIGHT; Complete Time: 11:41 rn Administered Medications: 08:54 Not Given (Patient Refused; pt states it makes her feel SOB): [id number] mg PO once hb 08:58 Drug: HYDROcodone-acetaminophen PO 5 mg-325 mg 1 tabs PO once Route: PO; mb9 09:43 Follow up: Response: No adverse reaction mb9 08:58 Drug: Ibuprofen PO 600 mg PO once Route: PO; mb9 09:43 Follow up: Response: No adverse reaction mb9 Disposition Summary: 05/04/24 11:46 Discharge Ordered Notes: Location: Home rn Problem: new rn Symptoms: have improved rn Condition: Stable rn Diagnosis - Pain in right lower leg rn Followup: rn - With: Private Physician - When: As needed - Reason: Recheck today's complaints, Re-evaluation by your physician Discharge Instructions: - Discharge Summary Sheet rn - Muscle Strain rn - Pain Without a Known Cause rn Forms: - Medication Reconciliation Form rn - Antibiotic sales management intern - Prescription Opioid Use rn - Patient Portal Instructions rn - Leadership Thank You Letter rn Prescriptions: - acetaminophen-codeine 300-30 mg Oral tablet - take 1 tablet ORAL route every 4 to 6 hours As needed as needed for pain; 12 rn tablet; Refills: 0, Product Selection Permitted - Cyclobenzaprine 10 mg Oral tablet - take 1 tablet ORAL route every 8 hours As needed; 15 tablet; Refills: 0, rn Product Selection Permitted Signatures: Dispatcher [employer] EDMS Maurice Zhao MD MD rn Baxter, Heather RN RN Norma Leonard RN RN mb9 Corrections: (The following items were deleted from the chart) 08:47 08:47 Knee Right 2 View+[email or web address].[email or web address] ordered. EDMS EDMS 08:47 08:47 Femur Right+RAD.[email or web address].[email or web address] ordered. EDMS EDMS
--- NOTE | 2024-05-04 11:49 | RAD REPORT ---
EXAM DESCRIPTION: US - Extremity Venous Uni Ltd - 05/04/2024 9:45 am CLINICAL HISTORY: Pain COMPARISON: None. TECHNIQUE: Real-time sonographic evaluation of the right lower extremity deep venous system was perf ormed. FINDINGS: Normal compressibility, flow augmentation, phasic flow and spontaneous flow is identified in the right lower extremity deep venous system. No intraluminal filling defects seen. IMPRESSION: No DVT in the right lower extremity.
[2024-05-04 12:16] VITALS: BP 166/90; TEMP 97.9; O2SAT 97
== END 2024-05-04 11:54 | disposition home or self-care (01) ==
LOC: ER 08:14
DX: M79.661 Pain in right lower leg (principal); Z88.2 Allergy status to sulfonamides
CPT/HCPCS: 93971; 99284